=== PATIENT | female | born 1950 | race Caucasian/White ===

== ENCOUNTER → 2017-03-12 13:11 | Outpatient (CLI) | payer MEDICARE, OTHER, SELFPAY ==
--- NOTE | 2017-03-12 13:13 | HPBI_ITS ---
MAMMOGRAPHY - BILATERAL SCREENING REASON FOR EXAM: Female, 66 years old. Routine annual screening examination. PERTINENT HISTORY: Bilateral breast nodules. TECHNIQUE: Digital bilateral breast amado (3D mammographic acquisition) in the CC and MLO projections. 2-D mediolateral oblique (MLO) and craniocaudad (CC) views of both breasts were obtained. CAD: Full Field Digital Mammography with Computer Added Detection was performed. COMPARISON: Comparison is made with prior study dated January 15, 2016 and November 20, 2014. FINDINGS: Breast Composition: There are scattered areas of fibroglandular density. There are no dominant masses or suspicious calcifications. Tissue clip markers are once again seen in both breasts in keeping with prior bilateral stereotactic biopsies. Stable bilateral benign-appearing axillary lymph nodes. No other significant abnormalities are identified. There has been no significant change since the prior study. HPBI/DIAG MAMM W/CAD, BILAT IMPRESSION: Stable bilateral screening mammogram. With the patient's history of bilateral palpable abnormalities, correlation with ultrasound is recommended. ASSESSMENT CATEGORY: BIRADS Category 0: Incomplete. Need additional imaging evaluation. A letter regarding these results will be sent to the patient by the facility within 30 days. Approximately 10% of breast cancers are not detected by mammography. A normal mammogram should not delay biopsy of a clinically suspicious abnormality. [id number] Electronically Signed: Jarret Kennedy MD at 15:41 EST Tel [phone], Service support ,
--- NOTE | 2017-03-12 13:16 | US_ITS ---
STUDY: ULTRASOUND BREAST - RIGHT REASON FOR EXAM: Female, 66 years old. Palpable lump in the right breast. TECHNIQUE: Axial and longitudinal images of the RIGHT breast were performed with a high resolution ultrasound transducer. COMPARISON: Comparison is made with prior mammogram done earlier today. FINDINGS: RIGHT Breast: There is a 3 mm x 3 mm x 4 mm cyst at the 2:00 position breast at 5 cm from nipple. IMPRESSION: 3 mm x 3 mm x 4 mm cyst at the 2:00 breast and 5 cm from the nipple. ASSESSMENT CATEGORY: BIRADS Category 2: Benign. A letter regarding these results will be sent to the patient by the facility within 30 days. Electronically Signed: Jarret Kennedy MD at 15:39 EST Tel [phone], Service support , STUDY: ULTRASOUND BREAST - LEFT REASON FOR EXAM: Female, 66 years old. Palpable lump left breast. TECHNIQUE: Axial and longitudinal images of the LEFT breast were performed with a high resolution ultrasound transducer. COMPARISON: Comparison is made with prior mammogram done earlier today. FINDINGS: LEFT Breast: The upper inner quadrant of the left breast was examined. No nodule is seen. US/Breast Limited Unilateral IMPRESSION: No significant sonographic abnormality is present. ASSESSMENT CATEGORY: BIRADS Category 1: Negative. A letter regarding these results will be sent to the patient by the facility within 30 days. Electronically Signed: Jarret Kennedy MD at 15:39 EST Tel [phone], Service support ,
== END ==
PROVIDERS: Family Provider Family Medicine; PCP Family Medicine; Visit Provider Obstetrics & Gynecology
DX: N64.4 Mastodynia (principal); N63.10 Unspecified lump in the right breast, unspecified quadrant
CPT/HCPCS: 76642; 77062; 77066; G0279

== ENCOUNTER → 2017-03-25 14:33 | Outpatient (CLI) | payer MEDICARE, OTHER, SELFPAY ==
--- NOTE | 2017-03-25 14:35 | US_ITS ---
STUDY: NECK ULTRASOUND REASON FOR EXAM: Female, 66 years old. Swelling TECHNIQUE: Ultrasound evaluation of the left neck was performed with real-time and static villalpando-scale imaging. COMPARISON: None. FINDINGS: RIGHT : The is no focal adenopathy seen. There are no demonstrated solid, cystic or complex lesions. LEFT : There is 0.9 cm lymph node. No cystic lesion, US/Head/Neck Soft Tissue IMPRESSION: Small lymph node in the left side of the neck. No dominant mass or fluid collection. Electronically Signed: Kenneth Hinson MD at 23:54 EST , Service support ,
== END ==
PROVIDERS: Family Provider Family Medicine; PCP Family Medicine; Visit Provider Family Medicine
DX: R59.0 Localized enlarged lymph nodes (principal)
CPT/HCPCS: 76536

== ENCOUNTER → 2017-07-13 11:39 | Outpatient (CLI) | payer MEDICARE, OTHER, SELFPAY ==
[2017-07-13 11:48] LABS: Mucous, Urine 0 SEEN /hpf (<or=2+); Red Blood Cells-Urine 0 SEEN /hpf (0-5)
[2017-07-13 15:44] LABS: Absolute Lymphocyte Count 1.71 X10^3/ul (0.83-4.51); Absolute Neutrophil Count 4.4 X10^3/uL (2.0-7.7); Basophil# 0.03 X10^3/uL; Basophil% 0.4 % (0-1); Color, Urine Yellow (Yellow); Eosinophil# 0.12 X10^3/uL; Eosinophils% 1.7 % (0-5); Glucose, Dipstick Normal (Normal); Hematocrit 45.2 % (37-47); Hemoglobin 14.4 g/dl (12.0-15.0); Ketone-Dipstick Negative (Negative); Leukocyte Esterase-Dipstick 25 /ul (Negative); Lymphocyte # 1.71 X10^3/ul (4.0); Lymphocyte % 24.8 % (19-41); Mean Corp Hgb Conc 31.9 g/gl (32-36); Mean Corpuscular Hgb 28.9 pg (27.0-32.0); Mean Corpuscular Volume 90.6 fL (81-99); Mean Platelet Vol. 9.9 fl (6.2-12.0); Monocyte# 0.65 X10^3/uL; Monocyte% 9.4 % (0-10); Neutrophil # 4.35 X10^3/uL (2.7-7.7); Neutrophil % 63.3 % (47-70); Nitrite-Dipstick Negative (Negative); Occult Blood-Urine Negative /ul (Negative); Platelet Count 222 K/mm3 (150-450); Protein-Dipstick Negative (Negative); RBC Distribution Width CV 14.2 % (11.6-14.6); RBC Distribution Width SD 46.5 fl (35.1-43.9); Red Blood Count 4.99 M/mm3 (4.2-5.4); Specific Gravity, Urine 1.025 (1.002-1.030); Urine Bilirubin Dipstick Negative (Negative); Urine Clarity Clear (Clear); Urine Urobilinogen Normal (Normal); White Blood Count 6.9 K/mm3 (4.4-11.0)
[2017-07-13 15:52] LABS: POSITIVE COUNT NO; POSITIVE DIFFERENTIAL NO; POSITIVE MORPHOLOGY NO
[2017-07-13 15:59] LABS: Squamous Epithelial Cells - UA 5-10 SEEN /hpf (5-10); White Blood Cells 0-5 SEEN /hpf (0-5)
[2017-07-13 16:00] LABS: Bacteria 1+ /hpf (None Seen); Transitional Epithelial - Ur 0-5 SEEN /hpf (0-5)
[2017-07-13 16:26] LABS: Anion Gap 12 (5-15); BUN 19 mg/dL (7-18); BUN/Creat Ratio 24.1 RATIO (10-20); Calcium,Total 8.9 mg/dL (8.5-10.1); Chloride 102 mmol/L (98-107); Creatinine, Serum 0.79 mg/dL (0.55-1.02); EST Glomerular Filtration Rate 77 mL/min (>60); Est Glom Filt Rate - Afr Amer 94 mL/min (>60); Free T3 2.4 pg/mL (2.18-3.98); Glucose 93 mg/dL (74-106); Potassium 4.2 mmol/L (3.5-5.1); Sodium Level 141 mmol/L (136-145); T4 Free Direct 0.98 ng/dL (0.76-1.46); Thyroid Stim Hormone (TSH) 2.05 uIU/mL (0.358-3.74)
[2017-07-15 14:07] LABS: Thyroid Peroxidase AB 25 IU/mL (0-34)
[2017-07-16 12:37] LABS: Thyroglobulin Antibody 79.2 IU/mL (0.0-0.9)
== END ==
PROVIDERS: Family Provider Family Medicine; PCP Family Medicine; Visit Provider Family Medicine
DX: E03.9 Hypothyroidism, unspecified (principal); E78.5 Hyperlipidemia, unspecified; I10 Essential (primary) hypertension; K62.5 Hemorrhage of anus and rectum; E11.9 Type 2 diabetes mellitus without complications; E55.9 Vitamin D deficiency, unspecified; R53.83 Other fatigue; Z79.01 Long term (current) use of anticoagulants
CPT/HCPCS: 36415; 80048; 81001; 84439; 84443; 84481; 85025; 86376; 86800; 87086

== ENCOUNTER → 2017-07-31 08:27 | Outpatient (CLI) | payer MEDICARE, OTHER, SELFPAY ==
[2017-07-31 09:23] LABS: Erythrocyte Sedimentation Rate 6 mm/hr (0-30)
[2017-07-31 09:50] LABS: CPK Total, Creatine Kinase 235 U/L (26-192); CRP 6.15 mg/L (0.0-3.0); Cholesterol 218 mg/dL (200); High Density Lipoprotein 54 mg/dL; Triglycerides 244 mg/dL; Very Low Density Lipoprotein 49 mg/dL (5-40)
== END ==
PROVIDERS: Family Provider Family Medicine; PCP Family Medicine; Visit Provider Family Medicine
DX: B27.90 Infectious mononucleosis, unspecified without complication (principal); M79.1 Myalgia; M25.50 Pain in unspecified joint; E78.5 Hyperlipidemia, unspecified; E11.9 Type 2 diabetes mellitus without complications; R53.1 Weakness; R53.83 Other fatigue
CPT/HCPCS: 36415; 80061; 82550; 85652; 86140; 86663; 86664; 86665

== ENCOUNTER → 2017-08-11 16:14 | Outpatient (CLI) | payer MEDICARE, OTHER, SELFPAY ==
[2017-08-14 07:55] LABS: EBV Acute VCA IgM < 36.0 U/mL (0.0-35.9); EBV Early Antigen IgG 71.8 U/mL (0.0-8.9); EBV Nuclear Antigen IgG 90.1 U/mL (0.0-17.9)
== END ==
PROVIDERS: Family Provider Family Medicine; PCP Family Medicine; Visit Provider Family Medicine
DX: B27.90 Infectious mononucleosis, unspecified without complication (principal); R53.83 Other fatigue; M79.1 Myalgia; R53.1 Weakness; M25.50 Pain in unspecified joint; E78.5 Hyperlipidemia, unspecified; E11.9 Type 2 diabetes mellitus without complications
CPT/HCPCS: 86663; 86664; 86665

== ENCOUNTER → 2017-09-02 14:56 | Outpatient (CLI) | payer MEDICARE, OTHER, SELFPAY ==
[2017-09-02 16:28] LABS: Rheumatoid Factor < 10.0 IU/mL (<15)
[2017-09-12 07:41] LABS: ANTINUCLEAR ANTIBODIES DIRECT Negative (Negative)
[2017-09-13 11:30] LABS: CCP IgG Antibodies 4 units (0-19)
== END ==
PROVIDERS: Visit Provider Family Medicine
DX: M13.0 Polyarthritis, unspecified (principal)
CPT/HCPCS: 36415; 86038; 86200; 86431

== ENCOUNTER → 2017-12-15 06:33 | Outpatient (CLI) | payer MEDICARE, OTHER, SELFPAY ==
--- NOTE | 2017-12-15 06:41 | MRI_ITS ---
STUDY: MRI LEFT HAND REASON FOR EXAM: Left hand pain and joint stiffness, evaluate for inflammatory arthritis, bone erosions, bone edema, synovitis. TECHNIQUE: Standardized fat and water weighted pulse sequences were obtained in all 3 orthogonal planes. COMPARISON: None. FINDINGS: Normal metacarpals and phalanges without bone edema. There is flexor tenosynovitis of the third digit at the level of the distal metacarpal and proximal phalanx (inversion recovery axial images 15-27). Otherwise, unremarkable flexor and extensor tendons. Normal carpometacarpal joints. There is mild subchondral cystic change of the radial aspect of the second metacarpal head (inversion recovery axial image 18). Otherwise, unremarkable metacarpophalangeal joints without marginal osseous erosions or joint effusions. There is mild flexion deformity at the second and third proximal interphalangeal joints (T2 sagittal images 13, 20). Otherwise, unremarkable interphalangeal joints without marginal osseous erosions or joint effusions. There is mild atrophy with mild partial fat replacement of the hypothenar musculature (T1 coronal images 6-8). There is no discrete soft tissue mass or cyst. MRI/Upper Ext/No Jt/ wo IMPRESSION: Flexor tenosynovitis of the third digit. Mild flexion deformity at the second and third proximal interphalangeal joints. Mild atrophy of the hypothenar musculature. No demonstrated bone edema or osseous erosions. Electronically Signed: Lukasz Flower MD at 8:44 EDT Tel , Service support ,
== END ==
PROVIDERS: Family Provider Family Medicine; PCP Family Medicine
DX: M79.642 Pain in left hand (principal)
CPT/HCPCS: 73218

== ENCOUNTER → 2018-01-24 16:27 | Outpatient (CLI) | payer MEDICARE, OTHER, SELFPAY ==
[2018-01-24 18:40] LABS: CPK Total, Creatine Kinase 250 U/L (26-192); T4 Free Direct 0.87 ng/dL (0.76-1.46); Thyroid Stim Hormone (TSH) 2.03 uIU/mL (0.358-3.74)
[2018-01-24 19:09] LABS: T3 Total - Triiodothyronine 1.04 ng/mL (0.6-1.81); Vitamin B12 1313 pg/mL (211-911); Vitamin D,25 Hydroxy 49.2 ng/mL (29.95-100.01)
[2018-01-28 12:41] LABS: EBV Acute VCA IgM < 36.0 U/mL (0.0-35.9); EBV Early Antigen IgG 43.1 U/mL (0.0-8.9); EBV Nuclear Antigen IgG 69.5 U/mL (0.0-17.9)
== END ==
PROVIDERS: PCP Family Medicine; Visit Provider Family Medicine
DX: R30.0 Dysuria (principal); E78.5 Hyperlipidemia, unspecified; E03.9 Hypothyroidism, unspecified; E55.9 Vitamin D deficiency, unspecified; B27.90 Infectious mononucleosis, unspecified without complication; R59.0 Localized enlarged lymph nodes; E53.8 Deficiency of other specified B group vitamins
CPT/HCPCS: 36415; 82306; 82550; 82607; 84439; 84443; 84480; 86663; 86664; 86665; 87086; 87088

== ENCOUNTER → 2018-03-24 17:44 | Outpatient (CLI) | payer MEDICARE, OTHER, SELFPAY | PROVIDERS: Family Provider Family Medicine; PCP Family Medicine; Referring Provider Podiatrist; Visit Provider Podiatrist | DX: L03.032 Cellulitis of left toe (principal) | CPT/HCPCS: 87070; 87075; 87077; 87205 ==

== ENCOUNTER → 2018-05-02 15:02 | Outpatient (CLI) | payer MEDICARE, OTHER, SELFPAY ==
--- NOTE | 2018-05-02 15:05 | BI_ITS ---
MAMMOGRAPHY - BILATERAL SCREENING 3-D ROCIO SYNTHESIS REASON FOR EXAM: Female, 67 years old. Bilateral Screening 3-D tomosynthesis PERTINENT HISTORY: History of cysts. TECHNIQUE: 2-D mammograms and 3-D Rocio synthesis of the breast (s) were performed. CAD was performed. COMPARISON: January 15, 2016, November 20, 2014 FINDINGS: The breast composition is almost entirely fat. Scattered benign calcifications are seen. There are stable lymph nodes in both axillae. Bilateral tissue clip markers are noted from the patient's prior biopsies. No dense spiculated masses or suspicious microcalcifications are identified. No architectural distortion is identified. There is no skin thickening or retraction. There has been no significant change since the prior study. BI/SCREENING MAMM (CAD), BILAT IMPRESSION: No mammographic signs of malignancy. Routine yearly mammograms recommended. ASSESSMENT CATEGORY: BIRADS Category 2: Benign. A letter regarding these results will be sent to the patient by the facility within 30 days. FOLLOW UP RECOMMENDATION: Yearly follow up mammogram recommended. (A) Approximately 10% of breast cancers are not detected by mammography. A normal mammogram should not delay biopsy of a clinically suspicious abnormality. Electronically Signed: Jhon Morrison MD at 13:55 EDT , Service support ,
== END ==
PROVIDERS: Family Provider Family Medicine; PCP Family Medicine; Referring Provider Obstetrics & Gynecology; Visit Provider Obstetrics & Gynecology
DX: Z12.31 Encounter for screening mammogram for malignant neoplasm of breast (principal)
CPT/HCPCS: 77063; 77067

== ENCOUNTER → 2018-08-08 16:52 | Outpatient (CLI) | payer MEDICARE, OTHER, SELFPAY ==
[2018-08-08 17:31] LABS: Hemoglobin 12.8 g/dl (12.0-15.0); Mean Corpuscular Hgb 28.1 pg (27.0-32.0); Mean Corpuscular Volume 87.9 fL (81-99); Mean Platelet Vol. 9.5 fl (6.2-12.0); Platelet Count 243 K/mm3 (150-450); RBC Distribution Width CV 14.3 % (11.6-14.6); RBC Distribution Width SD 45.9 fl (35.1-43.9); Red Blood Count 4.55 M/mm3 (4.2-5.4); Scan Indicated on CBC? Y/N NO; White Blood Count 8.2 K/mm3 (4.4-11.0)
== END ==
PROVIDERS: Family Provider Family Medicine; PCP Family Medicine; Referring Provider Internal Medicine Gastroenterology; Visit Provider Internal Medicine Gastroenterology
DX: K62.5 Hemorrhage of anus and rectum (principal)
CPT/HCPCS: 36415; 85027

== ENCOUNTER → 2018-09-06 16:00 | Outpatient (CLI) | payer MEDICARE, OTHER, SELFPAY ==
--- NOTE | 2018-09-05 12:34 | COLBX_PTH ---
PATIENT: CONCETTA DOOLEY LOC: [facility] U#:[id number] AGE/SX: 74/F ROOM: RE09/06/[address]: Dr. Ryan Joseph MD : 1950 BED: DIS: SPEC #: [id number] RECD: 09/06/18 15:23 STATUS: SHANE EFRAIN #: [id number] SHAKIR: 09/05/18 12:[address]: Ryan Joseph DEPT: SURGICAL PATHOLOGY RECD BY: Aubrey Marte ENTERED: 09/07/18 10:55 SP TYPE: COLON BX OTHR DR: Dr. Morena Marion, [facility] Tissues: Sigmoid colon biopsy Procedures: Surgery Specimen Level IV HEADER OPERATION: Colonoscopy with biopsy PRE-OP DIAGNOSIS: Rectal bleeding TISSUE SUBMITTED: Sigmoid polyp biopsy, rule out adenoma MICROSCOPIC DIAGNOSIS Sigmoid polyp, biopsy: Tubular adenoma. SJ:lilia 09/08/18 MICROSCOPIC DESCRIPTION Slides are reviewed. GROSS DESCRIPTION Received in fixative is one container labeled with the patient's name and designated sigmoid. The specimen consists of two irregular fragments of light troy soft tissue that in aggregate measure 0.4 x 0.3 x 0.1 cm. The specimen is totally submitted in one cassette. / SJ:lilia 09/07/18 TC:1 CPT: 40863
== END ==
PROVIDERS: Family Provider Family Medicine; PCP Family Medicine; Referring Provider Internal Medicine Gastroenterology; Visit Provider Internal Medicine Gastroenterology
DX: K62.5 Hemorrhage of anus and rectum (principal)
CPT/HCPCS: 88305

== ENCOUNTER → 2018-11-17 16:34 | Outpatient (CLI) | payer MEDICARE, OTHER, SELFPAY ==
[2018-11-17 17:15] LABS: Absolute Lymphocyte Count 1.69 X10^3/uL (0.83-4.51); Absolute Neutrophil Count 2.8 X10^3/uL (2.0-7.7); Basophil# 0.06 X10^3/uL; Basophil% 1.1 % (0-1); Eosinophil# 0.18 X10^3/uL; Eosinophils% 3.3 % (0-5); Hemoglobin 12.4 g/dL (12.0-15.0); Lymphocyte # 1.69 X10^3/ul (4.0); Lymphocyte % 30.8 % (19-41); Mean Corp Hgb Conc 30.2 g/dL (32-36); Mean Corpuscular Hgb 24.6 pg (27.0-32.0); Mean Corpuscular Volume 81.2 fL (81-99); Mean Platelet Vol. 9.4 fl (6.2-12.0); Monocyte# 0.72 X10^3/uL; Monocyte% 13.1 % (0-10); NRBC Flagged by Analyzer 0 % (0-5); Neutrophil % 51.2 % (47-70); Platelet Count 238 K/mm3 (150-450); RBC Distribution Width SD 49.3 fl (35.1-43.9); Red Blood Count 5.05 M/mm3 (4.2-5.4); White Blood Count 5.5 K/mm3 (4.4-11.0)
[2018-11-17 17:27] LABS: D-Dimer Quantitative (DVT/PE) 0.38 FEU/ug/m (0.27-0.49)
== END ==
PROVIDERS: Family Provider Family Medicine; PCP Family Medicine; Visit Provider Family Medicine
DX: D64.9 Anemia, unspecified (principal); M79.605 Pain in left leg; R60.9 Edema, unspecified
CPT/HCPCS: 36415; 85025; 85379

== ENCOUNTER → 2018-11-28 15:26 | Outpatient (CLI) | payer MEDICARE, OTHER, SELFPAY ==
--- NOTE | 2018-11-28 15:33 | MRI_ITS ---
STUDY: MRI LEFT ANKLE WITHOUT CONTRAST REASON FOR EXAM: Female, 67 years old. Pain and swelling. TECHNIQUE: Standardized fat and water weighted pulse sequences were obtained in all 3 orthogonal planes. COMPARISON: None. FINDINGS: Normal subcutis adipose space. Normal posterior tibialis tendon. Normal flexor digitorum longus tendon. Normal flexor hallucis longus tendon. Normal peroneus longus and brevis tendons. Normal tibialis anterior tendon. Normal extensor hallucis longus tendon. Normal extensor digitorum longus tendons. There is tendinosis of the Achilles tendon with diffuse tendon thickening, and a partial intratendinous tear, series 8 image 02/07. There is enthesophyte at the insertion of the posterior calcaneus. Thickening of the proximal central cord of the plantar fascia There is a plantar calcaneal spur, but without cancellous marrow edema. Normal intrinsic muscles of the rearfoot. Normal distal tibiofibular syndesmotic ligamentous complex. Normal lateral ligamentous complex. Normal subtalar ligaments and sinus tarsi. Normal deltoid ligamentous complexes. Normal plantar calcaneonavicular (spring) ligament. Mild arthrosis with slight spurring of the tibiotalar articulation. Normal talar dome. Normal subtalar articulations. Normal talonavicular articulation. Normal calcaneocuboid articulation. Normal navicular-cuneiform articulations. MRI/Lower Ext Joint Only (Routine) IMPRESSION: Achilles tendinosis with partial intrasubstance tear. Heel spurs. No fracture. No osteochondral injury of the talar dome. Electronically Signed: Kenneth Hinson MD at 19:00 EDT , Service support ,
--- NOTE | 2018-11-28 15:35 | MRI_ITS ---
STUDY: MRI LUMBAR SPINE WITHOUT CONTRAST REASON FOR EXAM: Female, 67 years old. Pain and stiffness in the legs. TECHNIQUE: Standardized fat and water weighted pulse sequences were obtained in the sagittal and axial planes. COMPARISON: September 12, 2014 FINDINGS: T12-L1: Normal endplates. Normal disc height, hydration and morphology. Normal bilateral facet joints. Normal central canal and bilateral lateral recesses. Normal bilateral intervertebral neural foramina. Normal lumbar lordosis. There is a dextroscoliosis of the lumbar spine. Normal conus medullaris that terminates at the T12 level L1-2: Disc space narrowing with endplate change. Disc bulge and spurring with central right paracentral disc protrusion, series 5 image /. Facet spurring. Mild canal stenosis and foraminal narrowing L2-3: Disc space narrowing on the left with endplate change. Disc bulge and spurring with left paracentral disc protrusion, series 5 image 17/. Facet spurring and ligamentum flavum hypertrophy. Mild canal stenosis. Left foraminal narrowing L3-4: Disc space narrowing on the left with endplate change. Disc bulge and spurring. Facet spurring and ligamentum flavum hypertrophy. Mild canal stenosis. Left foraminal narrowing. L4-5: Disc space narrowing on the right with endplate change. Disc bulge and spurring with right paracentral/foraminal disc protrusion, series 5 image /. Facet spurring and ligamentum flavum hypertrophy. Moderate canal stenosis. Right foraminal narrowing and encroachment. Left foraminal narrowing. L5-S1: Disc space narrowing. Disc bulge with bilateral foraminal disc protrusions, series 5 image /. Facet spurring. No canal stenosis. Bilateral foraminal narrowing and encroachment Normal visualized sacral ala. Normal visualized paraspinous soft tissue structures. MRI/Spine Lumbar (Routine) IMPRESSION: Multilevel degenerative changes, as described above. Electronically Signed: Kenneth Hinson MD at 18:53 EDT , Service support ,
--- NOTE | 2018-11-28 15:35 | MRI_ITS ---
STUDY: MRI CERVICAL SPINE WITHOUT CONTRAST REASON FOR EXAM: Female, 67 years old. Pain and stiffness. TECHNIQUE: Standardized fat and water weighted pulse sequences were obtained in the sagittal and axial planes. COMPARISON: September 12, 2014 FINDINGS: Normal foramen magnum and brainstem-cervical cord junction. Normal craniovertebral junction. Normal anterior atlantoaxial articulation. Normal odontoid process. Normal cervical lordosis. Normal vertebral bodies and posterior osseous elements. There is no acute fracture. C2-3: Normal endplates. Normal disc height, signal and morphology. Normal central canal and intervertebral neural foramina. C3-4: Normal endplates. Normal disc height, signal and morphology. Normal central canal and intervertebral neural foramina. C4-5: Disc bulge and spurring to the right narrowing the right lateral recesses. Facet and uncovertebral spurring with right foraminal narrowing. No canal stenosis. C5-6: Disc bulge with spurring flattening the thecal sac. Facet and uncovertebral spurring with foraminal narrowing. No canal stenosis. C6-7: Normal endplates. Normal disc height, signal and morphology. Uncovertebral spurring with right foraminal narrowing. C7-T1: Normal endplates. Normal disc height, signal and morphology. Normal central canal and intervertebral neural foramina. Normal cervical cord. Normal visualized soft tissue structures. MRI/Spine Cervical (Routine) IMPRESSION: Multilevel degenerative changes, as described above. Electronically Signed: Kenneth Hinson MD at 18:44 EDT , Service support ,
--- NOTE | 2018-11-28 16:22 | MRI_ITS ---
STUDY: MRI BRAIN WITHOUT CONTRAST REASON FOR EXAM: Female, 67 years old. Muscle weakness. Pain and stiffness in legs. TECHNIQUE: Standardized multiplanar fat and water weighted pulse sequences were obtained. COMPARISON: September 12, 2014 FINDINGS: Normal size of the ventricles and extra-axial spaces for the patient's age. Normal white matter tracts of the supratentorial brain. There is no evidence for recent intracranial ischemia or other cause of cytotoxic edema on diffusion weighted imaging (DWI). Normal T2* images of the brain without demonstrated susceptibility artifact. There is no demonstrated hemosiderin stain. Normal bilateral basal ganglia. Normal thalami. There is no extra-axial fluid accumulation. Normal flow voids within the major intracranial circulation suggesting patency by spin echo criteria. There is enlargement of the sella turcica with increased CSF within the sella and flattening of the pituitary gland consistent with an empty sellar syndrome. Normal infundibular stalk, hypothalamus, and optic chiasm. Normal tectal plate and pineal gland. Normal midbrain, hebert and medulla. Stable signal alteration and small prior insult of the right cerebellum . Normal basal cisterns. There is mild chronic otomastoiditis of the left temporal bone. Normal bilateral internal auditory canals. No demonstrated orbital abnormality, within the constraints of a routine brain study. Normal visualized paranasal sinuses. Normal calvarium and skull base. Normal visualized soft tissue structures. Normal visualized upper cervical spine. MRI/Brain without Contrast IMPRESSION: No acute intracranial abnormality. Stable abnormality with prior insult of the right cerebellum. Electronically Signed: Kenneth Hinson MD at 18:00 EDT , Service support ,
== END ==
PROVIDERS: Family Provider Family Medicine; PCP Family Medicine
DX: G37.9 Demyelinating disease of central nervous system, unspecified (principal); R29.898 Other symptoms and signs involving the musculoskeletal system
CPT/HCPCS: 70551; 72141; 72148; 73721

== ENCOUNTER → 2018-12-03 09:14 | Outpatient (CLI) | payer MEDICARE, OTHER, SELFPAY ==
[2018-12-03 11:30] LABS: Cholesterol 217 mg/dL (200); High Density Lipoprotein 62 mg/dL; T4 Free Direct 0.76 ng/dL (0.76-1.46); Thyroid Stim Hormone (TSH) 5.04 uIU/mL (0.358-3.74); Triglycerides 270 mg/dL; Very Low Density Lipoprotein 54 mg/dL (5-40)
== END ==
PROVIDERS: Family Provider Family Medicine; PCP Family Medicine; Referring Provider Internal Medicine Endocrinology, Diabetes & Metabolism; Visit Provider Internal Medicine Endocrinology, Diabetes & Metabolism
DX: E78.5 Hyperlipidemia, unspecified (principal); E03.9 Hypothyroidism, unspecified
CPT/HCPCS: 36415; 80061; 84439; 84443

== ENCOUNTER → 2019-05-05 15:00 | Outpatient (CLI) | payer MEDICARE, OTHER, SELFPAY ==
[2019-02-15 09:28] VITALS: BMI 35.8
--- NOTE | 2019-05-05 15:37 | BI_ITS ---
MAMMOGRAPHY - BILATERAL SCREENING REASON FOR EXAM: Female, 68 years old. Routine annual screening examination. PERTINENT HISTORY: Mother with breast cancer. Prior bilateral stereotactic breast biopsies. TECHNIQUE: Digital bilateral breast rocio (3D mammographic acquisition) in the CC and MLO projections. 2-D mediolateral oblique (MLO) and craniocaudad (CC) views of both breasts were obtained. CAD: Full Field Digital Mammography with Computer Added Detection was performed. COMPARISON: Comparison is made with prior examination dated May 02, 2018 and March 12, 2017. FINDINGS: Breast Composition: There are scattered areas of fibroglandular density. There are no dominant masses or suspicious calcifications. A tissue clip marker is seen in the retroareolar region of the right breast. A tissue clip marker is also seen in the retroareolar region of the left breast. Stable benign-appearing bilateral axillary lymph nodes. No other significant abnormalities are identified. There has been no significant change since the prior study. BI/SCREEN MAMM (CAD) W/ROCIO BILAT IMPRESSION: Stable bilateral screening mammogram. Yearly follow-up mammogram recommended. (A) ASSESSMENT CATEGORY: BIRADS Category 2: Benign. A letter regarding these results will be sent to the patient by the facility within 30 days. Approximately 10% of breast cancers are not detected by mammography. A normal mammogram should not delay biopsy of a clinically suspicious abnormality. [id number] Electronically Signed: Jarret Kennedy, at 8:39 EDT , Service support ,
== END ==
PROVIDERS: PCP Family Medicine; Referring Provider Obstetrics & Gynecology; Visit Provider Obstetrics & Gynecology
DX: Z12.31 Encounter for screening mammogram for malignant neoplasm of breast (principal)
CPT/HCPCS: 77063; 77067

== ENCOUNTER → 2019-11-29 11:58 | Outpatient (CLI) | payer MEDICARE, OTHER, SELFPAY ==
[2019-02-15 09:28] VITALS: BMI 35.8
[2019-11-29 15:13] LABS: Hematocrit 41.2 % (37-47); Hemoglobin 12.5 g/dL (12.0-15.0); Mean Corp Hgb Conc 30.3 g/dL (32-36); Mean Corpuscular Hgb 26.7 pg (27.0-32.0); Mean Corpuscular Volume 87.8 fL (81-99); Mean Platelet Vol. 10.2 fl (6.2-12.0); Platelet Count 269 K/mm3 (150-450); RBC Distribution Width CV 15.9 % (11.6-14.6); RBC Distribution Width SD 50.8 fl (35.1-43.9); Red Blood Count 4.69 M/mm3 (4.2-5.4); White Blood Count 6.5 K/mm3 (4.4-11.0)
[2019-12-01 17:52] LABS: Endomysial Antibody IgA Negative (Negative); Immunoglobulin A 125 mg/dL (87-352); t-Transglutaminase IgA <2 U/mL (0-3)
== END ==
PROVIDERS: PCP Family Medicine; Referring Provider Internal Medicine Gastroenterology; Visit Provider Internal Medicine Gastroenterology
DX: R10.9 Unspecified abdominal pain (principal); K62.5 Hemorrhage of anus and rectum
CPT/HCPCS: 36415; 82784; 83516; 85027; 86255

== ENCOUNTER → 2020-03-21 16:27 | Outpatient (CLI) | payer MEDICARE, OTHER, SELFPAY ==
[2019-02-15 09:28] VITALS: BMI 35.8
[2020-03-21 17:41] LABS: Erythrocyte Sedimentation Rate 16 mm/hr (0-30)
[2020-03-21 17:44] LABS: D-Dimer Quantitative (DVT/PE) 0.31 FEU/ug/m (0.27-0.49)
[2020-03-21 17:45] LABS: Absolute Lymphocyte Count 1.25 X10^3/uL (0.83-4.51); Absolute Neutrophil Count 4.8 X10^3/uL (2.0-7.7); Basophil# 0.08 X10^3/uL; Basophil% 1.1 % (0-1); Eosinophil# 0.28 X10^3/uL; Eosinophils% 3.8 % (0-5); Hematocrit 28.8 % (37-47); Hemoglobin 8.6 g/dL (12.0-15.0); Lymphocyte # 1.25 X10^3/ul (4.0); Lymphocyte % 16.8 % (19-41); Mean Corp Hgb Conc 29.9 g/dL (32-36); Mean Corpuscular Hgb 23.4 pg (27.0-32.0); Mean Corpuscular Volume 78.5 fL (81-99); Mean Platelet Vol. 9.4 fl (6.2-12.0); Monocyte# 0.92 X10^3/uL; Monocyte% 12.4 % (0-10); NRBC Flagged by Analyzer 0 % (0-5); Neutrophil # 4.78 X10^3/uL (2.7-7.7); Neutrophil % 64.3 % (47-70); Platelet Count 289 K/mm3 (150-450); RBC Distribution Width CV 16.9 % (11.6-14.6); RBC Distribution Width SD 48.3 fl (35.1-43.9); Red Blood Count 3.67 M/mm3 (4.2-5.4); White Blood Count 7.4 K/mm3 (4.4-11.0)
[2020-03-21 17:53] LABS: Hemoglobin A1c 6.9 % (3.8-5.6)
[2020-03-21 17:59] LABS: AST(SGOT) 16 U/L (15-37); Alanine Aminotransfer ALT/SGPT 25 U/L (13-56); Albumin, Serum 3.3 g/dL (3.2-5.0); Alkaline Phosphatase 116 U/L (45-117); Anion Gap 4 (5-15); BUN 13 mg/dL (7-18); BUN/Creat Ratio 14.2 RATIO (10-20); CRP 6.96 mg/L (0.0-3.0); Calcium,Total 8.6 mg/dL (8.5-10.1); Chloride 105 mmol/L (98-107); Creatinine, Serum 0.91 mg/dL (0.55-1.02); EST Glomerular Filtration Rate 65 mL/min (>60); Est Glom Filt Rate - Afr Amer 78 mL/min (>60); Ferritin 17 ng/mL (8-252); Free T3 1.5 pg/mL (2.18-3.98); Globulin 3.2 g/dL (2.2-4.2); Glucose 160 mg/dL (74-106); Iron 21 ug/dL (50-170); LDH 198 U/L (84-246); Potassium 3.8 mmol/L (3.5-5.1); Protein, Total 6.5 g/dL (6.4-8.2); Sodium Level 140 mmol/L (136-145); T4 Free Direct 1.04 ng/dL (0.76-1.46); Thyroid Stim Hormone (TSH) 1.84 uIU/mL (0.358-3.74)
[2020-03-23 08:57] LABS: Cancer Antigen 125 13.8 U/mL (0.0-38.1); Carcinoembryonic Antigen 1.6 ng/mL (0.0-4.7)
== END ==
PROVIDERS: PCP Family Medicine; Visit Provider Family Medicine
DX: R97.1 Elevated cancer antigen 125 [CA 125] (principal); Z12.73 Encounter for screening for malignant neoplasm of ovary; E11.9 Type 2 diabetes mellitus without complications; N93.9 Abnormal uterine and vaginal bleeding, unspecified; I10 Essential (primary) hypertension; E06.3 Autoimmune thyroiditis; R53.83 Other fatigue; M54.17 Radiculopathy, lumbosacral region; K62.5 Hemorrhage of anus and rectum; D64.9 Anemia, unspecified; M25.50 Pain in unspecified joint; Z91.89 Other specified personal risk factors, not elsewhere classified; Z85.038 Personal history of other malignant neoplasm of large intestine
CPT/HCPCS: 36415; 80053; 82378; 82728; 83036; 83540; 83615; 84439; 84443; 84481; 85025; 85379; 85652; 86140; 86304

== ENCOUNTER → 2020-03-25 07:48 | Outpatient (CLI) | payer MEDICARE, OTHER, SELFPAY ==
[2019-02-15 09:28] VITALS: BMI 35.8
[2020-03-25] VITALS (8 sets, daily range): BP systolic 117–157; BP diastolic 63–89; PULSE 82–107; RESP 12–16; TEMP 35.7–37.4; O2SAT 94–98; BMI 38.7
[2020-03-25] MEDS: Acetaminophen 500 MG Tablet 1000 MG PO (09:01)
[2020-03-25] MEDS: 0.9% NaCl IVPB Med Flush (250 mL) 15 ML IV (13:19)
== END ==
PROVIDERS: PCP Family Medicine; Referring Provider Family Medicine; Visit Provider Family Medicine
DX: D64.9 Anemia, unspecified (principal); K90.9 Intestinal malabsorption, unspecified
CPT/HCPCS: 96365; 36430; 86850; 86900; 86901; 86920; 86922; J1756; J7040; J7050; P9016; A4216

== ENCOUNTER → 2020-03-26 10:57 | Outpatient (CLI) | payer MEDICARE, OTHER, SELFPAY ==
[2019-02-15 09:28] VITALS: BMI 35.8
[2020-03-25 08:00] VITALS: BMI 38.7
--- NOTE | 2020-03-26 10:59 | US_ITS ---
STUDY: ULTRASOUND OF THE FEMALE PELVIS - COMPLETE REASON FOR EXAM: Female, 69 years old. VAG BLEEDING LMP: Postmenopausal. TECHNIQUE: Transabdominal and Transvaginal TECHNICAL QUALITY: Adequate. COMPARISON: Comparison is made with prior examination dated 08/12/2011. FINDINGS: The uterus is anteverted and is in a midline position. The uterus measures 5.9 cm x 4.1 cm x 3 cm. Normal uterine cervix. The endometrium measures 2 mm in thickness, and is hyperechoic. There is no demonstrated endometrial mass. There is no demonstrated myometrial mass. I.U.D. - The patient does not have an I.U.D. The right ovary is non-visualized. The left ovary is non-visualized. There is no fluid in the cul-de-sac. The pre void volume of the bladder was 456 ml. US/Transvaginal Non- IMPRESSION: Normal female pelvis. Electronically Signed: Jarret Kennedy MD at 14:14 EST , Service support ,
--- NOTE | 2020-03-26 11:00 | US_ITS ---
STUDY: ULTRASOUND OF THE FEMALE PELVIS - COMPLETE REASON FOR EXAM: Female, 69 years old. VAG BLEEDING LMP: Postmenopausal. TECHNIQUE: Transabdominal and Transvaginal TECHNICAL QUALITY: Adequate. COMPARISON: Comparison is made with prior examination dated 08/12/2011. FINDINGS: The uterus is anteverted and is in a midline position. The uterus measures 5.9 cm x 4.1 cm x 3 cm. Normal uterine cervix. The endometrium measures 2 mm in thickness, and is hyperechoic. There is no demonstrated endometrial mass. There is no demonstrated myometrial mass. I.U.D. - The patient does not have an I.U.D. The right ovary is non-visualized. The left ovary is non-visualized. There is no fluid in the cul-de-sac. The pre void volume of the bladder was 456 ml. US/Pelvic (Non ) IMPRESSION: Normal female pelvis. Electronically Signed: Jarret Kennedy MD at 14:14 EST , Service support ,
== END ==
PROVIDERS: PCP Family Medicine; Referring Provider Family Medicine; Visit Provider Family Medicine
DX: N95.0 Postmenopausal bleeding (principal)
CPT/HCPCS: 76830; 76856

== ENCOUNTER 2020-04-08 13:55 | Outpatient (CLI) | payer MEDICARE, OTHER, SELFPAY ==
[2019-02-15 09:28] VITALS: BMI 35.8
[2020-03-25 08:00] VITALS: BMI 38.7
[2020-04-08 14:00] VITALS: BP 155/71; PULSE 92; RESP 16; TEMP 36.2; O2SAT 99; BMI 38.7
[2020-04-08] MEDS: 0.9% NaCl Peripheral Flush Adult/Peds IV (14:10)
[2020-04-08] MEDS: 0.9% NaCl IVPB Med Flush (250 mL) 15 ML IV (14:24)
== END 2020-04-08 16:00 ==
LOC: MEDOUTP 13:55
PROVIDERS: PCP Family Medicine; Referring Provider Family Medicine; Visit Provider Family Medicine
DX: D50.9 Iron deficiency anemia, unspecified (principal); K90.9 Intestinal malabsorption, unspecified
CPT/HCPCS: 96365; J1756; J7050; A4216

== ENCOUNTER → 2020-04-15 13:56 | Outpatient (CLI) | payer MEDICARE, OTHER, SELFPAY ==
[2020-04-08 14:00] VITALS: BMI 38.7
--- NOTE | 2020-04-15 13:58 | CT_ITS ---
STUDY: CT ABDOMEN AND PELVIS WITH CONTRAST REASON FOR EXAM: Female, 69 years old. F/U ABN LUMBAR SPINE MRI 5CM MASS UPPER PELVIS -- ASSOCIATED WITH THE SIGMOIDS COLON RADIATION DOSAGE (If Supplied By Facility): CTDIvol = ( 18.62 ) mGy, DLP = ( 1223.79 ) mGycm TECHNIQUE: Transaxial images were obtained from the dome of the diaphragm to the symphysis pubis with oral contrast. Oral and amp;amp; IV Readi-CAT and amp;amp; 100mL Isovue-300 was administered. Sagittal and coronal images were reconstructed. Individualized dose optimization techniques were used for this CT. COMPARISON: None. FINDINGS: Mild degree of increased markings at the lung bases suggestive of mild linear scarring versus linear atelectasis. Coronary artery calcification. There is decreased attenuation of the liver consistent with steatosis is a 2.3 cm x 1.7 cm predominantly cystic nodule in the anterior lateral aspect of the right lobe of the liver. This may represent an hemangioma. Correlation with ultrasound of the right upper quadrant is recommended for further evaluation.. Normal gallbladder and extrahepatic biliary system. Normal spleen. Normal pancreas. Normal bilateral adrenal glands. Normal right kidney. 8 mm cyst in the lower pole of the left kidney. Normal visualized stomach. Normal small intestine. Normal colon. The appendix is visualized and appears normal. There is scattered atherosclerotic calcification of the abdominal aorta, without a demonstrated aneurysm. Normal inferior vena cava. There is borderline retroperitoneal lymphadenopathy with enlarged nodes no greater than 10mm in the short axis diameter. Normal urinary bladder. Normal abdominal wall. There are diffuse degenerative changes of the visualized lumbar spine. CT/Abdomen/Pelvis WITH Contrast IMPRESSION: Diffuse fatty infiltration of the liver. Findings suggestive of a 2.3 cm x 1.7 cm hypodense nodule in the right lobe of the liver. Conus with ultrasound of the right upper quadrant is recommended to assess for possible hemangioma. Electronically Signed: Jarret Kennedy MD at 16:40 EST , Service support ,
== END ==
PROVIDERS: PCP Family Medicine; Referring Provider Family Medicine; Visit Provider Family Medicine
DX: R19.00 Intra-abdominal and pelvic swelling, mass and lump, unspecified site (principal); R93.89 Abnormal findings on diagnostic imaging of other specified body structures
CPT/HCPCS: 74177; Q9967

== ENCOUNTER → 2020-04-22 13:49 | Outpatient (CLI) | payer MEDICARE, OTHER, SELFPAY ==
[2020-03-25 08:00] VITALS: BMI 38.7
[2020-04-22 10:03] LABS: Absolute Lymphocyte Count 1.23 X10^3/uL (0.83-4.51); Absolute Neutrophil Count 3.5 X10^3/uL (2.0-7.7); Basophil# 0.07 X10^3/uL; Basophil% 1.2 % (0-1); Eosinophil# 0.22 X10^3/uL; Eosinophils% 3.8 % (0-5); Hematocrit 33.9 % (37-47); Hemoglobin 9.9 g/dL (12.0-15.0); Lymphocyte # 1.23 X10^3/ul (4.0); Lymphocyte % 21.2 % (19-41); Mean Corp Hgb Conc 29.2 g/dL (32-36); Mean Corpuscular Hgb 22.9 pg (27.0-32.0); Mean Corpuscular Volume 78.3 fL (81-99); Monocyte# 0.73 X10^3/uL; Monocyte% 12.6 % (0-10); NRBC Flagged by Analyzer 0 % (0-5); Neutrophil % 60.3 % (47-70); Platelet Count 285 K/mm3 (150-450); RBC Distribution Width CV 19.7 % (11.6-14.6); Red Blood Count 4.33 M/mm3 (4.2-5.4); White Blood Count 5.8 K/mm3 (4.4-11.0)
[2020-04-22 11:16] VITALS: BMI 38.5
[2020-04-22 13:54] VITALS: BP 154/72; PULSE 98; RESP 16; TEMP 35.8; O2SAT 96; BMI 38.0
[2020-04-22] MEDS: 0.9% NaCl IVPB Med Flush (250 mL) 15 ML IV (14:11)
[2020-04-22] MEDS: 0.9% NaCl Peripheral Flush Adult/Peds IV (14:11)
[2020-04-22 14:58] VITALS: BP 132/56; PULSE 91; RESP 16; TEMP 35.9
== END ==
PROVIDERS: PCP Family Medicine; Referring Provider Family Medicine; Visit Provider Family Medicine
DX: D50.9 Iron deficiency anemia, unspecified (principal); K90.9 Intestinal malabsorption, unspecified; K55.21 Angiodysplasia of colon with hemorrhage; K57.30 Diverticulosis of large intestine without perforation or abscess without bleeding; K64.2 Third degree hemorrhoids; K64.4 Residual hemorrhoidal skin tags; Z20.822 Contact with and (suspected) exposure to COVID-19; E11.9 Type 2 diabetes mellitus without complications; E07.9 Disorder of thyroid, unspecified; L40.50 Arthropathic psoriasis, unspecified; G47.30 Sleep apnea, unspecified; E66.01 Morbid (severe) obesity due to excess calories; Z68.38 Body mass index [BMI] 38.0-38.9, adult; Z79.01 Long term (current) use of anticoagulants; Z79.899 Other long term (current) drug therapy; Z86.718 Personal history of other venous thrombosis and embolism; Z87.11 Personal history of peptic ulcer disease; Z86.010 Personal history of colon polyps; Z86.73 Personal history of transient ischemic attack (TIA), and cerebral infarction without residual deficits
CPT/HCPCS: 45378; 96365; 36415; 85025; 87426; C9803; J1756; J7050; A4216

== ENCOUNTER 2020-04-24 10:55 | Day surgery (SDC) | payer MEDICARE, OTHER, SELFPAY ==
[2020-04-22 11:16] VITALS: BMI 38.5
[2020-04-22 13:54] VITALS: BMI 38.0
[2020-04-24 11:27] VITALS: BP 134/60; PULSE 85; RESP 16; TEMP 36.1; O2SAT 98; BMI 38.8
--- NOTE | 2020-04-24 11:35 | HP.PCM_ITS ---
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 Is patient in pain?: No Allergies cefdinir Allergy (Verified 04/22/20 11:17) Rash ceftriaxone sodium [From Rocephin] Allergy (Verified 04/22/20 11:17) Rash ciprofloxacin [From Cipro] Allergy (Verified 04/22/20 11:17) Rash ciprofloxacin HCl [From Cipro] Allergy (Verified 04/22/20 11:17) Rash levofloxacin [From Levaquin] Allergy (Verified 04/22/20 11:17) Rash Medications Magnesium 400 mg PO DAILY 04/02/14 [History Confirmed 04/22/20] Calcium Carb/Vitamin D [Caltrate-600 With Vit D Tab] 1 tab PO DAILY@0800 06/07/14 [History Confirmed 04/22/20] Apixaban [Eliquis] 5 mg PO BID #60 tab 02/13/15 [Rx Confirmed 04/22/20] C,E,Zinc,Copper 11/Warxy2p/Lut [50+ Adult Eye Health Softgel] 1 ea PO DAILY 05/24/15 [History Confirmed 04/22/20] traMADol [Ultram] 100 mg PO DAILY 05/24/15 [History Confirmed 04/22/20] hydroxychloroquine 200 mg tablet 200 mg PO BID 04/22/20 [History Confirmed 04/22/20] levothyroxine 100 mcg tablet 100 mcg PO DAILY tab 04/22/20 [History Confirmed 04/22/20] Is last menstrual period known: No Post menopausal: Yes Patient : No PFSH Medical History (Updated 04/22/20 @ 11:[address] Rashid Gonzalez MD) Rectal bleeding (Acute) Back pain (Acute) Diabetes (Acute) Fatigue (Acute) History of arthritis (Acute) Interstitial lung disease (Acute) Macular degeneration (Acute) Neck pain (Acute) Psoriatic arthritis (Acute) SOB (shortness of breath) (Acute) Thyroid disease (Acute) Hemorrhoid (Resolved) History of CVA (cerebrovascular accident) (Resolved) History of DVT (deep vein thrombosis) (Resolved) History of colon polyps (Resolved) History of pulmonary embolism (Resolved) Surgical History (Updated 04/22/20 @ 11:16 by Jasmin Yusuf) History of cholecystectomy (Acute) History of hemorrhoidectomy (Acute) Total knee replacement status (Acute) History of colonoscopy (Resolved ~2019) History of inferior vena caval filter placement (Resolved) History of laparoscopic appendectomy (Resolved) History of varicose vein ligation (Resolved) history of omentectomy (Resolved) Family History Other Hypertension blood clots Social History (Updated 04/22/20 @ 11:[address] Rashid Gonzalez MD) Smoking Status: Never smoker alcohol intake: current alcohol intake frequency: holidays/special occasions only HPI HPI HPI: CONCETTA DOOLEY, is a 69 F who presents to the office today for surgical consultation regarding profuse rectal bleeding and anemia and requirement for 2 units of blood transfusion and ongoing IV iron infusion. Patient is referred by her primary care physician Dr. Morena Marion written compromise surgical consult recommendations will be returned to her. The patient apparently has had rectal bleeding now for at least a couple years. She is on chronic anticoagulation apixaban 5 mg twice daily because of history of DVT and pulmonary embolus. She has previously had retrievable vena cava filters prior. She does not have one currently. Apparently she was seen by Dr. Ryan Joseph and had a colonoscopy done for her rectal bleeding September 05, 2018. A tubular adenoma was removed from the sigmoid. She then was referred to Dr. Cordero who by report did a PPH stapled hemorrhoidopexy. The patient continued to have rectal bleeding. Apparently she saw both Dr. Cordero and Dr. Joseph in follow-up. No etiology to rectal bleeding was identified and no further investigations other than the suggested that the hemorrhoidectomy gone well. She then spent the last months in [facility] assisting her son. About a month ago she continued to feel much more poorly. Arms and legs were weak. She was noted to be increasingly anemic. 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 She then saw her neurologist. MRI of the back was obtained which suggested a possible sigmoid mass. Pelvic ultrasound was obtained which did not correlate. She then had a CT scan locally which did not discuss pelvic mass. She claims that when she bleeds she can have 1/4 cup of blood just dripping into the commode. As of today April 22, 2020 her white count is 5.8 with a hemoglobin 9.9 hematocrit 33.9 platelet count 285,000. She is to receive her third dosing of IV iron today. On my review of her CT there is a suggestion me of anal rectal fullness just distal to the staple line. HPI HPI HPI: CONCETTA DOOLEY, is a 69 F who presents to the office today for ROS General General: Yes weight change, fatigue and weakness; no appetite, colon cancer or breast cancer HEENT HEENT: No difficulty swallowing, eye injury, eye surgery, swollen glands or hoarseness Endo Endocrine: Yes thyroid disease and diabetes mellitus; no thyroid cancer, Hair loss, heat intolerance or cold intolerance Musc Musculoskeletal: Yes back problems and arthritis; no rheumatoid arthritis, gout or joint pain Cardio Cardiovascular: No murmur, pacemaker, heart disease, atrial fibrillation, high blood pressure, heart attack, heart stent, palpitations, shortness of breat with exertion or chest pain Psych Psychiatric: No depression, anxiety or hearing voices Resp Respiratory: Yes shortness of breath, Yes sleep apnea, No cough, No COPD, No asthma, No emphysema, No wheezing Gastro Gastrointestinal: Yes abdominal pain, No nausea or vomiting, No diarrhea, No constipation, Yes blood in stool, No acid reflux, Yes hemorrhoids, No ulcers, No gallbladder problem, No black,tarry stools Demian Hematologic: Yes blood thinners, No blood disorders, No bleeding, Yes anemia, Yes blood clots Neuro Neurologic: Yes weakness Exam Const General: cooperative, comfortable, no acute distress Nutritional Appearance: obese morbidly obese [facility] Head: normal to inspection Eyes General: appearance normal, both eyes and all related structures Resp Effort & Inspection: normal respiratory effort Auscultation: clear to auscultation bilaterally Cardio Palpation: normal PMI Rate: regular rate Rhythm: regular rhythm Heart Sounds: no murmurs GI Palpation: soft Auscultation: normal bowel sounds Other: Notably overweight, no mass, no rebound, no guarding Musc Cervical Spine: normal cervical lordosis Neuro General: alert, awake Cognition: normal cognition Extrem General: no calf tenderness Psych Affect: normal affect Assessment & Plan Problems 1. Rectal bleeding K62.5 Plan 69-year-old female with rectal bleeding the point of anemia requiring 2 unit of blood transfusion as well as IV iron supplementation. She has a history of pulmonary embolization. She is on chronic anticoagulation and for surgical procedures in the past has had a retrievable vena cava filter placed. Based upon her presentation I suspect ongoing hemorrhoidal bleeding. I propose for the patient a colonoscopy with possible biopsy or polypectomy as indicated. She is aware of the technique, benefit, risk, alternatives. Unfortunately we are not able to stop her anticoagulation. I will have her hold it just the evening before. At this moment I am suspicious that she might need to have a formal surgical hemorrhoidectomy. She did have a sigmoid polyp but that was a tubular adenoma. She has had an opportunity to ask and have questions answered. We will schedule and expedite her endoscopy this week. I appreciate the opportunity of assisting with her surgical care. Copy: Dr. Morena Gonzalez M.D., F.A.C.S. I have re-examined the patient. There are no clinical changes since date of exam. Orders Orders: Colonoscopy Today K62.5 Coding Level of Care Code 38968 Diagnoses Rectal bleeding K62.5 Procedure Criteria Procedure Type: Elective COVID Risk Discussion: The surgeon/proceduralist and patient have discussed in detail the risk of exposure to and/or potential harm posed by the COVID-19 virus with having a surgery/procedure at this time versus the risk of delaying the surgery/procedure. It is not possible to know either the risk of delaying the surgery or procedure or chance of getting an infection with perfect accuracy, but a joint decision was made between the patient and the surgeon/proceduralist to proceed at this time with the scheduled surgery/procedure as indicated on the consent form.
[2020-04-24 12:39] VITALS: BP 107/43; BP 134/60; PULSE 82; RESP 16; TEMP 36.4; O2SAT 100
--- NOTE | 2020-04-24 12:42 | OP.CCLET_ITS ---
04/24/2020 Morena Marion [address] [place] [address] Re : Colonoscopy procedure for Vicky Belen Dear Dr. Marion This procedure was performed on Friday, April 24, 2020. My impressions and recommendations are as follows: Impressions : - Non-thrombosed external hemorrhoids, non-thrombosed internal hemorrhoids and internal hemorrhoids that prolapse with straining, but require manual replacement into the anal canal (Grade III) found on digital rectal exam. - Multiple recently bleeding colonic angiodysplastic lesions. Treated with a heater probe. - Diverticulosis in the sigmoid colon. - No specimens collected. Recommendations : - Discharge patient to home. - Resume previous diet. - Continue present medications. - Repeat colonoscopy in 10 years for screening purposes. - Return to my office in 5 days. Suspect possible hemorrhoidal bleeding although cecal angiodysplasias were treated. My findings are described in the full procedure note, which is enclosed. If I can be of further assistance, please feel free to contact me at Doctor phone number(s): Work: . Sincerely, Rashid Gonzalez MD 04/24/2020 12:42:00 PM This report has been signed electronically.
--- NOTE | 2020-04-24 12:42 | OP.COLON_ITS ---
Patient Name: Vicky Glover Procedure Date: 04/24/2020 11:36 AM Date of : 1950 Age: 69 Procedure: Colonoscopy Indications: Rectal bleeding Providers: Rashid Gonzalez MD Referring MD: Morena Marion Medicines: See the Anesthesia note for documentation of the administered medications Patient Profile: Last Colonoscopy: 2018. Complications: No immediate complications. Procedure: Pre-Anesthesia Assessment: - Prior to the procedure, a History and Physical was performed, and patient medications and allergies were reviewed. The patient's tolerance of previous anesthesia was also reviewed. The risks and benefits of the procedure and the sedation options and risks were discussed with the patient. All questions were answered, and informed consent was obtained. Prior Anticoagulants: The patient has taken Eliquis (apixaban), last dose was day of procedure. ASA Grade Assessment: III - A patient with severe systemic disease. After reviewing the risks and benefits, the patient was deemed in satisfactory condition to undergo the procedure. After I obtained informed consent, the scope was passed under direct vision. Throughout the procedure, the patient's blood pressure, pulse, and oxygen saturations were monitored continuously. The colonoscope was introduced through the anus and advanced to the cecum, identified by appendiceal orifice and ileocecal valve. The colonoscopy was performed without difficulty. The patient tolerated the procedure well. The quality of the bowel preparation was good. The ileocecal valve and the appendiceal orifice were photographed. Scope In: 12:00:23 PM Scope Withdrawal Time 0 hours 27 minutes 9 seconds Scope Out: 12:33:42 PM Total Procedure Duration Time 0 hours 33 minutes 19 seconds Findings: The digital rectal exam findings include non-thrombosed external hemorrhoids, non-thrombosed internal hemorrhoids and internal hemorrhoids that prolapse with straining, but require manual replacement into the anal canal (Grade III). Multiple small patchy angiodysplastic lesions with stigmata of recent bleeding were found in the cecum. Coagulation for hemostasis using heater probe was successful. Scattered diverticula were found in the sigmoid colon. Impression: - Non-thrombosed external hemorrhoids, non-thrombosed internal hemorrhoids and internal hemorrhoids that prolapse with straining, but require manual replacement into the anal canal (Grade III) found on digital rectal exam. - Multiple recently bleeding colonic angiodysplastic lesions. Treated with a heater probe. - Diverticulosis in the sigmoid colon. - No specimens collected. Recommendation: - Discharge patient to home. - Resume previous diet. - Continue present medications. - Repeat colonoscopy in 10 years for screening purposes. - Return to my office in 5 days. Suspect possible hemorrhoidal bleeding although cecal angiodysplasias were treated. Procedure Code(s): --- Professional --- 73132, Colonoscopy, flexible; with control of bleeding, any method Diagnosis Code(s): --- Professional --- K64.2, Third degree hemorrhoids K64.4, Residual hemorrhoidal skin tags K55.21, Angiodysplasia of colon with hemorrhage K62.5, Hemorrhage of anus and rectum K57.30, Diverticulosis of large intestine without perforation or abscess without bleeding CPT copyright 2017 [employer]. All rights reserved. The codes documented in this report are preliminary and upon nuclear security officer review may be revised to meet current compliance requirements. Rashid Gonzalez MD 04/24/2020 12:42:00 PM This report has been signed electronically. Number of Addenda: 0 Note Initiated On: 04/24/2020 11:36 AM
[2020-04-24 12:45] VITALS: BP 125/69; BP 134/60; PULSE 83; RESP 16; O2SAT 99
[2020-04-24 12:50] VITALS: BP 125/69; BP 134/60; PULSE 75; RESP 16; O2SAT 100
[2020-04-24 13:00] VITALS: BP 126/71; BP 134/60; PULSE 80; RESP 16; TEMP 37.4; O2SAT 100
[2020-04-24 13:41] VITALS: BP 134/60
== END 2020-04-24 13:50 | disposition home or self-care (01) ==
LOC: EN 10:56 → AC 10:56
PROVIDERS: PCP Family Medicine; Referring Provider Family Medicine; Visit Provider Surgery
PROC: 0DJD8ZZ Inspection of Lower Intestinal Tract, Via Natural or Artificial Opening Endoscopic (ICD-10-PCS; CPT 45378; principal; 2020-04-24 11:55)
DX: K55.21 Angiodysplasia of colon with hemorrhage (principal); K57.30 Diverticulosis of large intestine without perforation or abscess without bleeding; D64.9 Anemia, unspecified; K64.2 Third degree hemorrhoids; K64.4 Residual hemorrhoidal skin tags; Z20.822 Contact with and (suspected) exposure to COVID-19; E11.9 Type 2 diabetes mellitus without complications; E07.9 Disorder of thyroid, unspecified; L40.50 Arthropathic psoriasis, unspecified; G47.30 Sleep apnea, unspecified; E66.01 Morbid (severe) obesity due to excess calories; Z68.38 Body mass index [BMI] 38.0-38.9, adult; Z79.01 Long term (current) use of anticoagulants; Z79.899 Other long term (current) drug therapy; Z86.718 Personal history of other venous thrombosis and embolism; Z86.711 Personal history of pulmonary embolism; Z86.010 Personal history of colon polyps; Z86.73 Personal history of transient ischemic attack (TIA), and cerebral infarction without residual deficits
CPT/HCPCS: 45378; 87426; C9803; J7120; J2405

== ENCOUNTER → 2020-05-07 06:22 | Outpatient (CLI) | payer MEDICARE, OTHER, SELFPAY ==
--- NOTE | 2020-05-07 06:24 | MRI_ITS ---
MR Abdomen WO/W Contrast 05/07/2020 7:01 AM COMPARISON: CT 04/15/2020 CLINICAL HISTORY: abnormal ct abdomen -- attention liver mass seen on CT TECHNIQUE: Multiplanar T1 and T2 weighted, diffusion and dynamic post-gadolinium images were obtained through the abdomen. FINDINGS: Liver: In segment 5 of the liver there is a 3 x 2 cm T1 hyperintense/T2 hyperintense peripherally based wedge-shaped lesion. It drops signal on fat saturation sequence and does not enhance on dynamic images. Gallbladder: Unremarkable Spleen: Unremarkable Pancreas: Unremarkable Adrenal Glands: Unremarkable Kidneys: Unremarkable GI Tract: Unremarkable Vasculature: Unremarkable Lymphadenopathy: Absent Ascites: Absent Bones: No suspicious lesions MRI/MRI Abd WITH and W/O Contrast IMPRESSION: 3 cm region of focal fatty infiltration in segment 5 of the liver. Electronically Signed: Michael Durand MD at 16:56 EDT Tel , Service support ,
[2020-05-07 06:46] LABS: CREATININE FINGERSTICK 0.8 mg/dL (0.55-1.02); EGFR FINGERSTICK > 60.0000 mL/min (>60)
== END ==
PROVIDERS: PCP Family Medicine; Referring Provider Surgery; Visit Provider Surgery
DX: R93.5 Abnormal findings on diagnostic imaging of other abdominal regions, including retroperitoneum (principal)
CPT/HCPCS: 74183; A9575

== ENCOUNTER 2020-05-08 13:06 | Outpatient (CLI) | payer MEDICARE, OTHER, SELFPAY ==
[2020-03-25 08:00] VITALS: BMI 38.7
[2020-05-08 13:14] VITALS: BP 144/69; PULSE 102; RESP 14; TEMP 35.8; O2SAT 97; BMI 39.0
[2020-05-08] MEDS: 0.9% NaCl Peripheral Flush Adult/Peds IV (13:26)
[2020-05-08] MEDS: 0.9% NaCl IVPB Med Flush (250 mL) 15 ML IV (13:28)
[2020-05-08 14:15] VITALS: BP 132/69; PULSE 83; RESP 16; TEMP 35.8; O2SAT 98
== END 2020-05-08 16:00 | disposition home or self-care (01) ==
LOC: MEDOUTP 13:06
PROVIDERS: PCP Family Medicine; Referring Provider Family Medicine; Visit Provider Family Medicine
DX: D50.9 Iron deficiency anemia, unspecified (principal); K90.9 Intestinal malabsorption, unspecified
CPT/HCPCS: 96365; J1756; J7050; A4216

== ENCOUNTER 2020-05-20 13:48 | Outpatient (CLI) | payer MEDICARE, OTHER, SELFPAY ==
[2020-03-25 08:00] VITALS: BMI 38.7
[2020-05-20 13:56] VITALS: BP 140/62; PULSE 82; RESP 16; TEMP 36.5; O2SAT 100; BMI 38.9
[2020-05-20] MEDS: 0.9% NaCl IVPB Med Flush (250 mL) 15 ML IV (13:59)
[2020-05-20] MEDS: 0.9% NaCl Peripheral Flush Adult/Peds IV (13:59)
[2020-05-20 14:59] LABS: Hematocrit 33.3 % (37-47); Hemoglobin 9.5 g/dL (12.0-15.0); Mean Corp Hgb Conc 28.5 g/dL (32-36); Mean Corpuscular Hgb 21.6 pg (27.0-32.0); Mean Corpuscular Volume 75.7 fL (81-99); Mean Platelet Vol. 9.3 fl (6.2-12.0); POSITIVE MORPHOLOGY YES; Platelet Count 321 K/mm3 (150-450); RBC Distribution Width CV 21.1 % (11.6-14.6); RBC Distribution Width SD 57.4 fl (35.1-43.9); White Blood Count 6.8 K/mm3 (4.4-11.0)
[2020-05-20 15:03] LABS: Scan Indicated on CBC? Y/N YES- FLAGS NOTED
== END 2020-05-20 16:00 | disposition home or self-care (01) ==
LOC: MEDOUTP 13:48
PROVIDERS: PCP Family Medicine; Referring Provider Family Medicine; Visit Provider Family Medicine
DX: D50.9 Iron deficiency anemia, unspecified (principal); K90.9 Intestinal malabsorption, unspecified
CPT/HCPCS: 96365; 85027; J1756; J7050; A4216

== ENCOUNTER → 2020-05-21 14:16 | Outpatient (CLI) | payer MEDICARE, OTHER, SELFPAY ==
[2020-05-20 13:56] VITALS: BMI 38.9
[2020-05-21 18:33] LABS: Ferritin 144 ng/mL (8-252); Iron 66 ug/dL (50-170)
== END ==
PROVIDERS: PCP Family Medicine; Referring Provider Family Medicine; Visit Provider Family Medicine
DX: D50.9 Iron deficiency anemia, unspecified (principal); K90.9 Intestinal malabsorption, unspecified
CPT/HCPCS: 82728; 83540

== ENCOUNTER → 2020-05-29 16:28 | Outpatient (CLI) | payer MEDICARE, OTHER, SELFPAY ==
[2020-05-20 13:56] VITALS: BMI 38.9
[2020-05-29 17:54] LABS: Absolute Lymphocyte Count 1.82 X10^3/uL (0.83-4.51); Absolute Neutrophil Count 5.1 X10^3/uL (2.0-7.7); Basophil% 1.2 % (0-1); Eosinophil# 0.15 X10^3/uL; Eosinophils% 1.8 % (0-5); Hematocrit 35.5 % (37-47); Hemoglobin 9.8 g/dL (12.0-15.0); Lymphocyte # 1.82 X10^3/ul (0.83-4.51); Lymphocyte % 22.4 % (19-41); Mean Corp Hgb Conc 27.6 g/dL (32-36); Mean Platelet Vol. 9.5 fl (6.2-12.0); Monocyte# 0.86 X10^3/uL; Monocyte% 10.6 % (0-10); NRBC Flagged by Analyzer 0 % (0-5); Neutrophil # 5.12 X10^3/uL (2.7-7.7); POSITIVE MORPHOLOGY YES; Platelet Count 309 K/mm3 (150-450); RBC Distribution Width CV 22.5 % (11.6-14.6); RBC Distribution Width SD 61.1 fl (35.1-43.9); Red Blood Count 4.67 M/mm3 (4.2-5.4); White Blood Count 8.1 K/mm3 (4.4-11.0)
[2020-05-29 17:58] LABS: Differential Indicated SCAN CRITERIA MET
[2020-05-29 18:01] LABS: D-Dimer Quantitative (DVT/PE) 0.41 FEU/ug/m (0.27-0.49)
[2020-05-29 18:29] LABS: Differential Comment SCANNED
[2020-05-29 18:30] LABS: Anisocytosis 1+
== END ==
PROVIDERS: PCP Family Medicine; Referring Provider Family Medicine; Visit Provider Family Medicine
DX: D64.9 Anemia, unspecified (principal); M79.605 Pain in left leg; Z86.718 Personal history of other venous thrombosis and embolism
CPT/HCPCS: 36415; 85025; 85379

== ENCOUNTER → 2020-06-12 14:52 | Outpatient (CLI) | payer MEDICARE, OTHER, SELFPAY ==
[2020-05-20 13:56] VITALS: BMI 38.9
--- NOTE | 2020-06-12 14:55 | BI_ITS ---
MAMMOGRAPHY - BILATERAL SCREENING REASON FOR EXAM: Female, 69 years old. Routine annual screening examination. PERTINENT HISTORY: Non-contributory. Remote bilateral stereotactic breast biopsies. TECHNIQUE: Digital bilateral breast rocio (3D mammographic acquisition) in the CC and MLO projections. 2-D mediolateral oblique (MLO) and craniocaudad (CC) views of both breasts were obtained. CAD: Full Field Digital Mammography with Computer Added Detection was performed. COMPARISON: Comparison is made with prior study dated 05/05/2019 and 05/02/2018. FINDINGS: Breast Composition: The breasts are heterogeneously dense, which may obscure small masses. There are no dominant masses or suspicious calcifications. Tissue markers are seen in the retroareolar regions of both breasts. Stable scattered calcifications. Stable benign appearing bilateral axillary lymph nodes. No other significant abnormalities are identified. There has been no significant change since the prior study. BI/SCRN MAMM (CAD)W/ROCIO BILAT IMPRESSION: Stable bilateral screening mammogram. Yearly follow-up mammogram recommended. (A) ASSESSMENT CATEGORY: BIRADS Category 2: Benign. A letter regarding these results will be sent to the patient by the facility within 30 days. Approximately 10% of breast cancers are not detected by mammography. A normal mammogram should not delay biopsy of a clinically suspicious abnormality. [id number] Electronically Signed: Jarret Kenendy MD at 15:36 EDT , Service support ,
== END ==
PROVIDERS: PCP Family Medicine; Referring Provider Surgery; Visit Provider Surgery
DX: Z12.31 Encounter for screening mammogram for malignant neoplasm of breast (principal)
CPT/HCPCS: 77063; 77067

== ENCOUNTER → 2020-06-19 12:12 | Outpatient (CLI) | payer MEDICARE, OTHER, SELFPAY ==
[2020-05-20 13:56] VITALS: BMI 38.9
[2020-06-19 12:57] LABS: Absolute Lymphocyte Count 1.88 X10^3/uL (0.83-4.51); Absolute Neutrophil Count 6.8 X10^3/uL (2.0-7.7); Basophil# 0.11 X10^3/uL; Basophil% 1.1 % (0-1); Eosinophil# 0.18 X10^3/uL; Eosinophils% 1.7 % (0-5); Hematocrit 33.3 % (37-47); Hemoglobin 9.5 g/dL (12.0-15.0); Lymphocyte # 1.88 X10^3/ul (0.83-4.51); Mean Corp Hgb Conc 28.5 g/dL (32-36); Mean Corpuscular Hgb 20.9 pg (27.0-32.0); Mean Corpuscular Volume 73.2 fL (81-99); Mean Platelet Vol. 9.4 fl (6.2-12.0); Monocyte# 1.02 X10^3/uL; Monocyte% 9.8 % (0-10); NRBC Flagged by Analyzer 0 % (0-5); POSITIVE MORPHOLOGY YES; Platelet Count 368 K/mm3 (150-450); RBC Distribution Width CV 21.6 % (11.6-14.6); RBC Distribution Width SD 55.7 fl (35.1-43.9); Red Blood Count 4.55 M/mm3 (4.2-5.4); White Blood Count 10.5 K/mm3 (4.4-11.0)
[2020-06-19 13:01] LABS: Differential Indicated SCAN CRITERIA MET
[2020-06-19 13:17] LABS: D-Dimer Quantitative (DVT/PE) 0.48 FEU/ug/m (0.27-0.49)
[2020-06-19 13:25] LABS: Anisocytosis 1+; Hypochromasia 1+
[2020-06-19 14:21] LABS: ALB/GLOB Ratio 1.2 RATIO (0.9-2.4); AST(SGOT) 19 U/L (15-37); Alanine Aminotransfer ALT/SGPT 29 U/L (13-56); Albumin, Serum 3.7 g/dL (3.2-5.0); Alkaline Phosphatase 111 U/L (45-117); Anion Gap 5 (5-15); BUN 11 mg/dL (7-18); BUN/Creat Ratio 13.3 RATIO (10-20); Calcium,Total 8.4 mg/dL (8.5-10.1); Chloride 104 mmol/L (98-107); Creatinine, Serum 0.82 mg/dL (0.55-1.02); EST Glomerular Filtration Rate 73 mL/min (>60); Est Glom Filt Rate - Afr Amer 88 mL/min (>60); Globulin 3.2 g/dL (2.2-4.2); Glucose 168 mg/dL (74-106); Magnesium 2.1 mg/dL (1.6-2.6); Potassium 3.9 mmol/L (3.5-5.1); Protein, Total 6.9 g/dL (6.4-8.2); Sodium Level 138 mmol/L (136-145); T4 Free Direct 1.04 ng/dL (0.76-1.46)
[2020-06-19 15:36] LABS: Free T3 1.9 pg/mL (2.18-3.98)
== END ==
PROVIDERS: PCP Family Medicine; Referring Provider Family Medicine; Visit Provider Family Medicine
DX: R07.9 Chest pain, unspecified (principal); D64.9 Anemia, unspecified; R06.00 Dyspnea, unspecified
CPT/HCPCS: 36415; 80053; 83735; 84439; 84443; 84481; 84484; 85025; 85379

== ENCOUNTER → 2020-06-19 17:19 | Outpatient (CLI) | payer MEDICARE, OTHER, SELFPAY ==
[2020-05-20 13:56] VITALS: BMI 38.9
--- NOTE | 2020-06-19 17:25 | CT_ITS ---
INDICATION: ELEVATED D-DIMER EXAMINATION: CTA Chest WO/W Contrast Injection TECHNIQUE: Helically acquired images were obtained of the chest following IV contrast. A radiation dose optimization technique was used for this scan. 3-D postprocessing images including MIPS were reviewed. IV Contrast dosage and agent: 100 cc [id number] COMPARISON: None. FINDINGS: Lungs: 3 mm pulmonary nodule in the right upper lobe (image 127, series 2). Scarring versus atelectasis in the lung bases. Mediastinum: The cardiomediastinal silhouette is not enlarged. No mediastinal, hilar or axillary adenopathy. Mild aortic arch and coronary artery calcifications. No obvious filling defect seen within the visualized pulmonary arteries. Pleura: Unremarkable Bones/Soft tissues: There are diffuse degenerative changes of the spine. Upper abdomen: No visualized abnormalities in the upper abdomen. CT/CTA Chest W/WO Contrast IMPRESSION: No acute abnormalities in the chest. Specifically, no evidence of acute pulmonary emboli to the segmental level. 3 mm pulmonary nodule in the right upper lobe. Per Fleischner criteria, an optional follow-up chest CT may be obtained in 12 months. Electronically Signed: Mihcael Durand MD at 18:33 EDT Tel , Service support ,
== END ==
PROVIDERS: PCP Family Medicine; Visit Provider Family Medicine
DX: R07.9 Chest pain, unspecified (principal); R07.89 Other chest pain; D64.9 Anemia, unspecified; R06.00 Dyspnea, unspecified
CPT/HCPCS: 36415; 71275; 80053; 83735; 84439; 84443; 84481; 84484; 85025; 85379; Q9967

== ENCOUNTER → 2020-07-01 10:48 | Outpatient (CLI) | payer MEDICARE, OTHER, SELFPAY ==
[2020-06-26 08:24] VITALS: BMI 38.7
--- NOTE | 2020-07-01 10:49 | ECHOCS_ITS ---
Reason For Study: Chest Pain Procedure This was a 2D Doppler, Color Flow transthoracic echocardiogram. Contrast injection was performed. Exam performed in department. Left Ventricle Normal LV size. Left ventricular systolic function is normal. The estimated ejection fraction is 60 %. Stage 1 diastolic dysfunction. No regional wall motion abnormalities noted. Right Ventricle Normal RV size. Normal systolic function. Atria Normal left atrium. Normal right atrium. Mitral Valve Normal mitral valve. Tricuspid Valve Normal tricuspid valve. Mild tricuspid valve insufficiency. Aortic Valve Normal aortic valve. Great Vessels Normal aortic root. The pulmonary artery is normal size. Normal inferior vena cava. Pericardium/Pleural No pericardial effusion. Medication Diluted definity 6ml given slow IV push to enhance endocardial definition. MMode/2D Measurements & Calculations LVIDd: 4.4 cm IVSd: 1.1 cm Ao root diam: 3.2 cm LVIDs: 2.6 cm LVPWd: 1.2 cm RVDd: 2.6 cm FS: 41.2 % LAV(MOD-bp): 32.4 ml LVAd ap4: 28.4 cm2 SV(MOD-sp4): 58.4 ml LAV(MOD-bp) Indexed: 15.1 ml/m2 LVLd ap4: 7.8 cm LAV(MOD-sp2): 42.0 ml EDV(MOD-sp4): 87.5 ml LAV(MOD-sp4): 25.5 ml EDV(sp4-el): 87.4 ml LVAs ap4: 15.2 cm2 LVLs ap4: 6.9 cm ESV(MOD-sp4): 29.2 ml ESV(sp4-el): 28.3 ml EF(MOD-sp4): 66.7 % EF(sp4-el): 67.6 % SV(sp4-el): 59.0 ml LA A4 area: 12.3 cm2 LA dimension(2D): 3.6 cm RA A4 area: 8.3 cm2 Doppler Measurements & Calculations MV E max walter: 93.2 cm/sec Lat Peak E' Walter: 6.0 cm/sec Med Peak E' Walter: 6.1 cm/sec MV A max walter: 103.8 cm/sec E/E' lat: 15.5 E/E' med: 15.2 MV E/A: 0.90 Ao V2 max: 186.9 cm/sec LV V1 max: 140.8 cm/sec PA V2 max: 89.7 cm/sec Ao max P.0 mmHg LV V1 max P.9 mmHg Ao V2 mean: 121.7 cm/sec Ao mean P.8 mmHg Ao V2 VTI: 33.8 cm TR max walter: 217.8 cm/sec TR max P.0 mmHg ECHO/Echo Complete W/ Contrast Interpretation Summary Normal LV size. Left ventricular systolic function is normal. The estimated ejection fraction is 60 %. Stage 1 diastolic dysfunction. Contrast injection was performed. The study was technically difficult. Ordering Physician: Man Goodson Referring Physician: Morena Marion Performed By: Eva Chirinos, FLAVIA, RVT
--- NOTE | 2020-07-01 14:05 | STRESSREP ---
Stress Test Report Take myocardial perfusion stress test. 69-year-old lady with a history of preoperative clearance for preop cardiac evaluation. Stress protocol: Resting EKG demonstrates normal sinus rhythm with a rate of 75 bpm normal intervals are noted resting blood pressure is 132/74 mmHg. 0.4 mg of regadenoson was infused per usual protocol followed by rapid intravenous saline flush injection continuous EKG monitoring was performed. The maximum heart rate attained was 91 bpm which was 60% of maximum predicted heart rate the maximum workload was 1 metabolic equivalent. At rest there were no ST or T wave changes noted to suggest ischemia and at peak infusion nonspecific ST changes were noted. No clinical angina was noted. Myocardial perfusion protocol. 14.7 mCi of technetium 99m sestamibi was injected at rest. 0.4 mg of regadenoson was infused per usual protocol. At peak infusion 42.0 mCi of technetium 99m sestamibi was injected stress images were obtained stress and rest images were reconstructed and compared in the short axis vertical long and horizontal long axis. Gated images were also obtained. Perfusion SPECT analysis: Review of the stress images demonstrate normal uptake of tracer noted in all areas of the myocardium. There is some anterior breast wall attenuation noted. The resting images demonstrate a similar pattern. No obvious areas of reversibility are noted to suggest ischemia and no previous infarct is noted. Gated SPECT analysis: The gated ejection fraction is 60%. Conclusion Normal pharmacologic myocardial perfusion stress test. Preserved ejection fraction.
== END ==
PROVIDERS: PCP Family Medicine; Referring Provider Internal Medicine Cardiovascular Disease; Visit Provider Internal Medicine Cardiovascular Disease
DX: R07.89 Other chest pain (principal); Z86.73 Personal history of transient ischemic attack (TIA), and cerebral infarction without residual deficits
CPT/HCPCS: 78452; 93017; 93306; A9500; Q9957; A4216; C8929; J2785

== ENCOUNTER → 2020-07-16 14:43 | Outpatient (CLI) | payer MEDICARE, OTHER, SELFPAY ==
[2020-06-26 08:24] VITALS: BMI 38.7
[2020-07-16 18:02] LABS: Absolute Neutrophil Count 4.1 X10^3/uL (2.0-7.7); Basophil# 0.05 X10^3/uL; Basophil% 0.8 % (0-1); Eosinophil# 0.11 X10^3/uL; Eosinophils% 1.7 % (0-5); Hematocrit 40.5 % (37-47); Hemoglobin 11.7 g/dL (12.0-15.0); Lymphocyte % 21.9 % (19-41); Mean Corp Hgb Conc 28.9 g/dL (32-36); Mean Corpuscular Hgb 23.6 pg (27.0-32.0); Mean Corpuscular Volume 81.7 fL (81-99); Mean Platelet Vol. 10.6 fl (6.2-12.0); Monocyte# 0.69 X10^3/uL; Monocyte% 10.8 % (0-10); NRBC Flagged by Analyzer 0 % (0-5); Neutrophil # 4.06 X10^3/uL (2.7-7.7); Neutrophil % 63.7 % (47-70); POSITIVE MORPHOLOGY YES; Platelet Count 262 K/mm3 (150-450); RBC Distribution Width CV 25.9 % (11.6-14.6); RBC Distribution Width SD 76.5 fl (35.1-43.9); Red Blood Count 4.96 M/mm3 (4.2-5.4); White Blood Count 6.4 K/mm3 (4.4-11.0)
[2020-07-16 18:07] LABS: Differential Indicated SCAN CRITERIA MET
[2020-07-16 18:33] LABS: ALB/GLOB Ratio 1.2 RATIO (0.9-2.4); AST(SGOT) 31 U/L (15-37); Alanine Aminotransfer ALT/SGPT 33 U/L (13-56); Albumin, Serum 3.7 g/dL (3.2-5.0); Alkaline Phosphatase 115 U/L (45-117); Anion Gap 9 (5-15); BUN 10 mg/dL (7-18); BUN/Creat Ratio 13.1 RATIO (10-20); Calcium,Total 8.8 mg/dL (8.5-10.1); Chloride 103 mmol/L (98-107); Creatinine, Serum 0.76 mg/dL (0.55-1.02); EST Glomerular Filtration Rate 80 mL/min (>60); Est Glom Filt Rate - Afr Amer 96 mL/min (>60); Globulin 3.2 g/dL (2.2-4.2); Glucose 204 mg/dL (74-106); Potassium 3.8 mmol/L (3.5-5.1); Protein, Total 6.9 g/dL (6.4-8.2); Sodium Level 138 mmol/L (136-145)
[2020-07-16 18:38] LABS: Anisocytosis 1+; Differential Comment SCANNED
[2020-07-16 18:43] LABS: BNP,B-Type NATRIURETIC PEPTIDE 7.5 pg/mL (0-100)
== END ==
PROVIDERS: PCP Family Medicine; Referring Provider Family Medicine; Visit Provider Family Medicine
DX: R60.0 Localized edema (principal); I50.33 Acute on chronic diastolic (congestive) heart failure; D64.9 Anemia, unspecified; D50.9 Iron deficiency anemia, unspecified; K90.9 Intestinal malabsorption, unspecified; Z51.81 Encounter for therapeutic drug level monitoring
CPT/HCPCS: 36415; 80053; 83880; 85025

== ENCOUNTER 2020-07-23 09:06 | Day surgery (SDC) | payer MEDICARE, OTHER, SELFPAY ==
[2020-06-26 08:24] VITALS: BMI 38.7
[2020-07-23] VITALS (7 sets, daily range): BP systolic 112–150; BP diastolic 59–81; PULSE 67–81; RESP 14–20; TEMP 36.2–36.7; O2SAT 97–99; BMI 39.4
--- NOTE | 2020-07-23 09:17 | PCM.HP.BLA ---
History and Physical Date of Admission: 07/23/20 Intake Visit Reasons: Esophagogastroduodenoscopy Chief Complaint: discuss hemorrhoids/egd Hydrator Operator Required: No Is patient in pain?: No Allergies cefdinir Allergy (Verified 06/25/20 08:07) Rash ceftriaxone sodium [From Rocephin] Allergy (Verified 06/25/20 08:07) Rash ciprofloxacin [From Cipro] Allergy (Verified 06/25/20 08:07) Rash ciprofloxacin HCl [From Cipro] Allergy (Verified 06/25/20 08:07) Rash levofloxacin [From Levaquin] Allergy (Verified 06/25/20 08:07) Rash Medications magnesium 400 mg PO DAILY 04/02/14 [History Confirmed 06/25/20] tramadol 50 mg PO DAILY PRN PRN 05/24/15 [History Confirmed 06/25/20] hydroxychloroquine 200 mg tablet 200 mg PO BID 04/22/20 [History Confirmed 06/25/20] levothyroxine 100 mcg tablet 100 mcg PO DAILY tab 04/22/20 [History Confirmed 06/25/20] acetaminophen 650 mg PO DAILY 04/23/20 [History Confirmed 06/25/20] apixaban 2.5 mg PO BID 04/23/20 [History Confirmed 06/25/20] ergocalciferol (vitamin D2) 50,000 unit PO GAVIN 04/23/20 [History Confirmed 06/25/20] iron sucrose 100 mg IV UD 04/23/20 [History Confirmed 06/25/20] vitamin R56-bstrs acid 1 ea PO GAVIN 04/23/20 [History Confirmed 06/25/20] [facility] Medical History Back pain Diabetes Fatigue Hemorrhoid History of arthritis History of colon polyps History of CVA (cerebrovascular accident) History of DVT (deep vein thrombosis) History of pulmonary embolism Interstitial lung disease Macular degeneration Neck pain Psoriatic arthritis Rectal bleeding SOB (shortness of breath) Thyroid disease Surgical History History of cholecystectomy History of colonoscopy (~2018) History of colonoscopy (~04/2020) History of hemorrhoidectomy History of inferior vena caval filter placement History of laparoscopic appendectomy history of omentectomy History of varicose vein ligation Total knee replacement status Family History Other Hypertension blood clots Social History Smoking Status: Never smoker alcohol intake: current alcohol intake frequency: holidays/special occasions only HPI HPI HPI: CONCETTA DOOLEY, is a 69 F who presents to the office today for surgical consultation regarding ongoing anemia and ongoing intermittent episodes of rectal bleeding. The patient is referred by Dr. Nehemias Walter and a written copy of my surgical consult recommendations will return to him. The patient has had rectal bleeding now for quite a period of time. She states that it will drip in the commode. More recently she has had some intermittent clotting. Because of previous problems with pulmonary embolization she has been on Eliquis therapy. She did see her vascular specialist May 10, 2020 at [facility] and her Eliquis is currently been held. Most recently however within the past week she has had problems with chest pain shortness of breath and dyspnea. A chest pressure phenomenon. Looking back through some laboratory it appears November 17, 2018 a D-dimer was 0.38 then March 21, 2020 it was 0.31 and then May 29 it was 0.41 and then most recently on June 19, 2020 was 0.48. Because of her symptoms on June 19, [address] of the chest done at the [facility]. A 3 mm pulmonary nodule in the right upper lobe was identified. Follow-up in 12 months. There was no evidence for acute pulmonary embolization. I had also been involved with her care previously and on May 07, 2000 an MRI of the abdomen was obtained because of a previous abnormal abdominal CT. In segment 5 of the liver there is a 3 x 2 cm hyperintense wedge which is felt to be fatty infiltration. April 15, 2020 at the [facility] she had had a CT of the abdomen suggesting this liver lesion. Previously Dr. Ryan Joseph on September 05, 2018 and performed a colonoscopy with diagnosis of rectal bleeding. A sigmoid tubular adenoma was removed. Then more recently with a diagnosis of rectal bleeding I performed a colonoscopy on her on April 24, 2020. The digital exam showed some nonthrombosed external and internal hemorrhoids. There were multiple small patchy Sydney angiodysplastic lesions found in the cecum. Treated those with a heater probe. There was a suggestion of possible recent bleeding but there certainly was no clot or significant amounts of liquid blood other than right at the small lesion. It was felt less likely that these would be the source of dripping blood in the commode. Scattered diverticula was noted in the sigmoid colon. It was presumed that her recurrent rectal bleeding was secondary to recurrent hemorrhoids. Now the patient has previously had a PPH stapled hemorrhoidopexy performed out of town. She states that was done for rectal bleeding. She states that within a month after the procedure she had recurrent rectal bleeding and she was seen by her surgeon who did an anoscopy who did not detect any problem with the surgical procedure. As of June 19, 2020 her hemoglobin is white blood cell count is 10.5 with a hemoglobin 9.5 hematocrit 33.3 platelet count 368,000. BUN is 11 creatinine 0.82. The patient is being referred now by Dr. Nehemias Walter for consideration of esophagogastroduodenoscopy. And ongoing inspection for source of iron supplement resistant anemia is being requested ROS General General: Yes weight change, fatigue and weakness; No appetite, colon cancer or breast cancer HEENT HEENT: No difficulty swallowing, eye injury, eye surgery, swollen glands or hoarseness Endo Endocrine: Yes thyroid disease and diabetes mellitus; No thyroid cancer, Hair loss, heat intolerance or cold intolerance Skin Skin: No rash or changing moles Breast Breast: No left breast lump, right breast lump, nipple discharge, breast pain, abnormal mammogram, abnormal US or breast enlargement Musc Musculoskeletal: Yes back problems and arthritis; No rheumatoid arthritis, gout or joint pain Cardio Cardiovascular: No murmur, pacemaker, heart disease, atrial fibrillation, high blood pressure, heart attack, heart stent, palpitations, shortness of breat with exertion or chest pain Psych Psychiatric: No depression, anxiety or hearing voices Resp Respiratory: Yes shortness of breath, Yes sleep apnea, No cough, No COPD, No asthma, No emphysema and No wheezing Gastro Gastrointestinal: No abdominal pain, No nausea or vomiting, No diarrhea, No constipation, Yes blood in stool, No acid reflux, Yes hemorrhoids, No ulcers, No gallbladder problem and Yes black,tarry stools Demian Hematologic: Yes blood thinners, No blood disorders, No bleeding, Yes anemia and Yes blood clots Neuro Neurologic: No system reviewed and no additional complaints, except as documented, No as per HPI, No abnormal gait, No abnormal hearing, No abnormal movements, No abnormal speech, No behavioral changes, No burning sensations, No confusion, No convulsions, No disequilibrium, No dizziness, No localized weakness, No frequent falls, No headache(s), No lack of coordination, No loss of vision, No memory loss, No numbness, No other visual disturbances, No radicular pain, No restless legs, No sensory deficit, No syncope, No tingling, No tremor(s), Yes weakness and No other Exam Const General: cooperative, comfortable and no acute distress Nutritional Appearance: obese HENMT Head: normal to inspection Resp Effort & Inspection: normal respiratory effort Auscultation: clear to auscultation bilaterally Cardio Rate: regular rate Rhythm: regular rhythm GI Palpation: soft Other: Overweight, not able to detect any internal organs of concern, no guarding, minimal tenderness left lower quadrant and right lower quadrant Skin General: no rashes or lesions noted Neuro Cognition: normal cognition Extrem General: no calf tenderness bilaterally Psych Appearance: grossly normal Thought Process: normal Assessment and Plan Assessment and Plan (1) Rectal bleeding: Status: Acute (2) Chest pressure: Status: Acute (3) Chronic anemia: Status: Chronic Plan Details Additional Comments: 69-year-old female referred for ongoing surgical assistance regarding chronic anemia which appears to be resistant to iron supplementation. A request for a esophagogastroduodenoscopy has been made. Although this may assist with identifying a additional source for anemia I instructed the patient it will not explain bright red blood per rectum or dripping in the commode. The patient states that she will intermittently have rectal bleeding and more recently a few clots. It is not clear whether this is the sole etiology to her chronic anemia. She has had a PPH stapled hemorrhoidopexy an attempt to treat what was thought were bleeding hemorrhoids. A follow-up anoscopy by that surgeon did not did not demonstrate hemorrhoidal bleeding at that time. The patient has known diverticulosis. The patient has some cecal angiodysplasia. It is not likely that those would be the source of dripping in the commode bright red rectal bleeding. It is also been mentioned to the patient that she might pursue a capsule endoscopy. Most concern to me currently is that she is complaining of a new onset of chest pressure. She has had a history of pulmonary embolization. She has been taken off of her anticoagulation by her vascular specialist. A CTA of the chest was unremarkable. She does not currently have an etiology to her chest discomfort. She is running her chronic anemia. I recommend to her a esophagogastroduodenoscopy with possible biopsy or polypectomy as indicated. However I recommend that we obtain cardiology review prior to attempting such a procedure. I believe she is do 1 more attempt at trying to decipher the etiology to her new onset chest pressure. Regarding her bright red rectal bleeding I have suggested to her that when it occurs as it seems to be quite intermittent that she contact the office and if we have the capacity I would then portend that we attempt a rigid sigmoidoscopy at the time the bleeding is occurring. I need to help decipher as to whether this is potentially internal hemorrhoidal bleeding or whether the blood seems to be emanating more proximally. Whether the patient needs a future capsule endoscopy that will be depending upon the finding of the upper endoscopy perhaps. I appreciate the opportunity of assisting with her surgical care. Pending cardiology clearance we will pursue the upper endoscopy. Copy: Dr. Nehemias Walter and Dr. Morena Gonzalez M.D., F.A.C.S. I have re-examined the patient. There are no clinical changes since date of exam. Rashid Gonzalez M.D., F.A.C.S.
[2020-07-23] MEDS: Lactated Ringers 1,000 ML 100 ML IV (09:54)
[2020-07-23 10:10] LABS: Bedside Glucose 153 mg/dL (70-110)
--- NOTE | 2020-07-23 10:15 | IMM_PTH ---
PATIENT: CONCETTA DOOLEY LOC: EN U#:[id number] AGE/SX: 69/F ROOM: RE07/23/[address]: Dr. Rashid Gonzalez MD : 1950 BED: DIS: 07/23/2020 SPEC #: [id number] RECD: 07/23/20 12:53 STATUS: SHANE REQ #: [id number] SHAKIR: 07/23/20 10:[address]: Rashid Gonzalez DEPT: IMMUNOHISTOCHEMISTRY RECD BY: Ellie Oshea ENTERED: 07/23/20 12:54 SP TYPE: IMMUNO OTHR DR: Dr. Morena Marion, DO Tissues: B - Stomach, NOS Procedures: H Pylori (initial) PHYSICIAN & INSTITUTION [place] [address] SPECIMEN INFORMATION: Tissue Source: B ? Antrum biopsy Clinical Info: Chronic anemia Specimen Number: [id number] CPT code: 98449 METHODOLOGY: Deparaffinized sections of prefer/formalin-fixed tissue or PAP/DQ stained slides are incubated with monoclonal/polyclonal antibodies/oligonucleotide probes. Localization is made via biotin free immunoperoxidase method. Appropriate controls are performed and reacted as expected. Results on target cell population are indicated in the following table: RESULTS: ANTIBODY / CLONE RESULT Block B H Pylori (polyclonal) negative These tests were developed and their performance characteristics determined by [facility]. They may not have been cleared or approved by the U.S. Food and Drug Administration. The FDA has determined that such clearance or approval is not necessary. INTERPRETATION: B. Antrum biopsy: Negative for Helicobacter pylori organisms. AM:lilia 07/24/2020
--- NOTE | 2020-07-23 10:15 | EGD_PTH ---
PATIENT: CONCETTA DOOLEY LOC: EN U#:[id number] AGE/SX: 69/F ROOM: RE07/23/[address]: Dr. Rashid Gonzalez MD : 1950 BED: DIS: 07/23/2020 SPEC #: [id number] RECD: 07/23/20 11:41 STATUS: SHANE EFRAIN #: [id number] SHAKIR: 07/23/20 10:[address]: Rashid Gonzalez DEPT: SURGICAL PATHOLOGY RECD BY: Anna Glover ENTERED: 07/23/20 13:20 SP TYPE: EGD BIOPSY OT DR: Dr. Morena Marion DO Tissues: A - Duodenum, NOS B - Gastric mucous membrane C - Esophagus, NOS Procedures: Special Stain Group II Surgery Specimen Level IV Alcian Blue/PAS (control) HEADER OPERATION: EGD ([facility]) PRE-OP DIAGNOSIS: Chronic anemia TISSUE SUBMITTED: A ? Duodenum biopsy, B ? Antrum biopsy for H. pylori and path, C ? Distal esophagus biopsy MICROSCOPIC DIAGNOSIS A. Duodenum, biopsy: No pathologic change. B. Gastric antrum, biopsy: Mild chronic gastritis. See comment. C. Distal esophagus, biopsy: Focal changes of reflux. Gastric mucosa with mild chronic inflammation. No evidence of goblet cell metaplasia. See comment. AM:lilia 07/24/2020 COMMENT B. The results of immunohistochemistry for Helicobacter pylori will be reported separately ([id number]). C. Alcian blue/PAS stain with matched control supports the above diagnosis. MICROSCOPIC DESCRIPTION Slides are reviewed. GROSS DESCRIPTION A - Received in fixative is one container labeled with the patient's name and designated duodenum biopsy. The specimen consists of one irregular fragment of light troy soft tissue that measures 0.3 x 0.2 x 0.1 cm. The specimen is totally submitted in one cassette. B - Received in fixative is one container labeled with the patient's name and designated antrum biopsy. The specimen consists of one irregular fragment of light troy soft tissue that measures 0.4 x 0.3 x 0.1 cm. The specimen is totally submitted in one cassette. C - Received in fixative is one container labeled with the patient's name and designated distal esophagus biopsy. The specimen consists of multiple irregular fragments of light troy soft tissue that in aggregate measure 1.4 x 0.3 x 0.1 cm. The specimen is totally submitted in one cassette. / SJ:rg 07/23/20 TC:3 CPT: 26815 x3, 05125
--- NOTE | 2020-07-23 11:36 | OP.CCLET_ITS ---
07/23/2020 Nehemias Walter [address] [place] [address] Re : Upper GI endoscopy procedure for Vicky Glover Dear Dr. Walter This procedure was performed on Thursday, July 23, 2020. My impressions and recommendations are as follows: Impressions : - LA Grade A reflux esophagitis. Biopsied. - Small hiatal hernia. Possible short segment Fritz's; biopsies pending - Erythematous mucosa in the antrum. Biopsied. - Normal examined duodenum. Biopsied. Recommendations : - Discharge patient to home. - Resume previous diet. - Continue present medications. - Await pathology results. - Telephone my office for pathology results in 1 week. Findings do not correlatate with active blood loss. The tissues did bleed easily with biopsy. My findings are described in the full procedure note, which is enclosed. If I can be of further assistance, please feel free to contact me at Doctor phone number(s): Work: . Sincerely, Rashid Gonzalez MD 07/23/2020 11:35:26 AM This report has been signed electronically.
--- NOTE | 2020-07-23 11:36 | OP.EGD_ITS ---
Patient Name: Vicky Glover Procedure Date: 07/23/2020 11:13 AM Date of : 1950 Age: 69 Procedure: Upper GI endoscopy Indications: Iron deficiency anemia Providers: Rashid Gonzalez MD Medicines: See the Anesthesia note for documentation of the administered medications Complications: No immediate complications. Procedure: Pre-Anesthesia Assessment: - Prior to the procedure, a History and Physical was performed, and patient medications and allergies were reviewed. The patient's tolerance of previous anesthesia was also reviewed. The risks and benefits of the procedure and the sedation options and risks were discussed with the patient. All questions were answered, and informed consent was obtained. Prior Anticoagulants: The patient has taken Eliquis (apixaban), last dose was 1 day prior to procedure. ASA Grade Assessment: III - A patient with severe systemic disease. After reviewing the risks and benefits, the patient was deemed in satisfactory condition to undergo the procedure. After obtaining informed consent, the endoscope was passed under direct vision. Throughout the procedure, the patient's blood pressure, pulse, and oxygen saturations were monitored continuously. The gastroscope was introduced through the mouth, and advanced to the second part of duodenum. The upper GI endoscopy was accomplished without difficulty. The patient tolerated the procedure well. Scope In: 11:23:19 AM Scope Out: 11:29:39 AM Total Procedure Duration Time 0 hours 6 minutes 20 seconds Findings: LA Grade A (one or more mucosal breaks less than 5 mm, not extending between tops of 2 mucosal folds) esophagitis with no bleeding was found 43 cm from the incisors. Biopsies were taken with a cold forceps for histology. A small hiatal hernia was present. Diffuse mildly erythematous mucosa without bleeding was found in the gastric antrum. Biopsies were taken with a cold forceps for histology. The examined duodenum was normal. Biopsies were taken with a cold forceps for histology. Impression: - LA Grade A reflux esophagitis. Biopsied. - Small hiatal hernia. Possible short segment Fritz's; biopsies pending - Erythematous mucosa in the antrum. Biopsied. - Normal examined duodenum. Biopsied. Recommendation: - Discharge patient to home. - Resume previous diet. - Continue present medications. - Await pathology results. - Telephone my office for pathology results in 1 week. Findings do not correlatate with active blood loss. The tissues did bleed easily with biopsy. Procedure Code(s): --- Professional --- 78112, Esophagogastroduodenoscopy, flexible, transoral; with biopsy, single or multiple Diagnosis Code(s): --- Professional --- K21.0, Gastro-esophageal reflux disease with esophagitis K44.9, Diaphragmatic hernia without obstruction or gangrene K31.89, Other diseases of stomach and duodenum D50.9, Iron deficiency anemia, unspecified CPT copyright 2017 [employer]. All rights reserved. The codes documented in this report are preliminary and upon energy consultant review may be revised to meet current compliance requirements. Rashid Gonzalez MD 07/23/2020 11:35:26 AM This report has been signed electronically. Number of Addenda: 0 Note Initiated On: 07/23/2020 11:13 AM
== END 2020-07-23 12:24 ==
LOC: EN 09:08 → AC 09:13
PROVIDERS: PCP Family Medicine; Referring Provider Family Medicine; Visit Provider Surgery
PROC: 0DJ08ZZ Inspection of Upper Intestinal Tract, Via Natural or Artificial Opening Endoscopic (ICD-10-PCS; CPT 43235; principal; 2020-07-23 10:10)
DX: K29.51 Unspecified chronic gastritis with bleeding (principal); D50.9 Iron deficiency anemia, unspecified; K21.00 Gastro-esophageal reflux disease with esophagitis, without bleeding; K44.9 Diaphragmatic hernia without obstruction or gangrene; K31.89 Other diseases of stomach and duodenum; K64.4 Residual hemorrhoidal skin tags; K64.8 Other hemorrhoids; E11.9 Type 2 diabetes mellitus without complications; E07.9 Disorder of thyroid, unspecified; L40.50 Arthropathic psoriasis, unspecified; G47.33 Obstructive sleep apnea (adult) (pediatric); E66.9 Obesity, unspecified; Z79.01 Long term (current) use of anticoagulants; Z86.718 Personal history of other venous thrombosis and embolism; Z86.711 Personal history of pulmonary embolism; Z86.73 Personal history of transient ischemic attack (TIA), and cerebral infarction without residual deficits; Z86.010 Personal history of colon polyps
CPT/HCPCS: 43239; 82962; 88305; 88313; 88342; J7120; J2405

== ENCOUNTER → 2020-09-05 14:07 | Outpatient (CLI) | payer MEDICARE, OTHER, SELFPAY ==
[2020-09-05 13:56] VITALS: BMI 39.4
[2020-09-05 14:20] LABS: Hemoglobin 11.7 g/dL (12.0-15.0); Mean Corp Hgb Conc 30.8 g/dL (32-36); Mean Corpuscular Hgb 25.8 pg (27.0-32.0); Mean Corpuscular Volume 83.7 fL (81-99); Mean Platelet Vol. 8.7 fl (6.2-12.0); Platelet Count 238 K/mm3 (150-450); RBC Distribution Width CV 19.8 % (11.6-14.6); RBC Distribution Width SD 60.8 fl (35.1-43.9); Red Blood Count 4.54 M/mm3 (4.2-5.4); White Blood Count 7.2 K/mm3 (4.4-11.0)
[2020-09-05 14:32] LABS: Anion Gap 4 (5-15); BUN 9 mg/dL (7-18); BUN/Creat Ratio 10.8 RATIO (10-20); Calcium,Total 8.7 mg/dL (8.5-10.1); Chloride 106 mmol/L (98-107); Creatinine, Serum 0.84 mg/dL (0.55-1.02); EST Glomerular Filtration Rate 72 mL/min (>60); Est Glom Filt Rate - Afr Amer 87 mL/min (>60); Glucose 143 mg/dL (74-106); Potassium 4.1 mmol/L (3.5-5.1); Sodium Level 139 mmol/L (136-145)
== END ==
PROVIDERS: PCP Family Medicine; Referring Provider Physician Assistant; Visit Provider Physician Assistant
DX: K64.3 Fourth degree hemorrhoids (principal)
CPT/HCPCS: 36415; 80048; 85027

== ENCOUNTER → 2020-09-09 12:51 | Outpatient (CLI) | payer MEDICARE, OTHER, SELFPAY ==
[2020-08-06 10:31] VITALS: BMI 39.4
[2020-09-05 13:56] VITALS: BMI 39.4
--- NOTE | 2020-09-09 12:52 | VDLE_ITS ---
Reason For Study: Swelling RIGHT LEFT GSV is normal. GSV is normal. CFV is compressible, spontaneous, phasic, CFV is compressible, spontaneous, phasic, competent and demonstrates normal competent, and demonstrates normal augmentation. augmentation. FV is compressible, spontaneous, phasic, FV is compressible, spontaneous, phasic, competent and demonstrates normal competent and demonstrates normal augmentation. augmentation. POP V is compressible, spontaneous, phasic, POP V is compressible, spontaneous, phasic, competent and demonstrates normal competent and demonstrates normal augmentation. augmentation. T/P Trunk is compressible. T/P Trunk is compressible. PTV is compressible. PTV is compressible. RT PerV is compressible. LT PerV is compressible. Procedure This is a venous duplex using B-mode, color flow and spectral Doppler. Exam performed in department. A preliminary report was called and/or faxed to [facility]. VL/Venous Duplex US - Igor Extrem Interpretation Summary No evidence for acute deep venous thrombosis bilateral lower extremities with p atent and compressible bilateral great saphenous veins. Ordering Physician: Elizabet Calixto Referring Physician: Morena Marion Performed By: Yasmin Flores RVT and Student
== END ==
PROVIDERS: PCP Family Medicine; Referring Provider Physician Assistant; Visit Provider Physician Assistant
DX: M79.89 Other specified soft tissue disorders (principal); Z86.711 Personal history of pulmonary embolism
CPT/HCPCS: 93970

== ENCOUNTER 2020-09-18 06:04 | Day surgery (SDC) | payer MEDICARE, OTHER, SELFPAY ==
[2020-08-06 10:31] VITALS: BMI 39.4
[2020-09-05 13:56] VITALS: BMI 39.4
--- NOTE | 2020-09-14 08:05 | EKG12_ITS ---
Test Reason : PRE OP Blood Pressure : / mmHG Vent. Rate : 069 BPM Atrial Rate : 069 BPM P-R Int : 156 ms QRS Dur : 086 ms QT Int : 432 ms P-R-T Axes : 073 048 062 degrees QTc Int : 462 ms Normal sinus rhythm Normal ECG Confirmed by ZACH REN, DANIKA ([id number]), field map editor TELMA MARIO ([id number]) on 09/19/2020 1:09:18 PM Referred By: Rashid Gonzalez Confirmed By:DANIKA SERRANO MD
[2020-09-14 08:11] LABS: Hematocrit 36.9 % (37-47); Hemoglobin 11.2 g/dL (12.0-15.0); Mean Corp Hgb Conc 30.4 g/dL (32-36); Mean Corpuscular Hgb 25.6 pg (27.0-32.0); Mean Corpuscular Volume 84.4 fL (81-99); Mean Platelet Vol. 9.2 fl (6.2-12.0); Platelet Count 254 K/mm3 (150-450); RBC Distribution Width CV 18.4 % (11.6-14.6); RBC Distribution Width SD 56.5 fl (35.1-43.9); Red Blood Count 4.37 M/mm3 (4.2-5.4); White Blood Count 5.8 K/mm3 (4.4-11.0)
[2020-09-14 09:04] LABS: Anion Gap 9 (5-15); BUN 11 mg/dL (7-18); Calcium,Total 8.6 mg/dL (8.5-10.1); Chloride 106 mmol/L (98-107); Creatinine, Serum 0.79 mg/dL (0.55-1.02); EST Glomerular Filtration Rate 77 mL/min (>60); Est Glom Filt Rate - Afr Amer 93 mL/min (>60); Glucose 179 mg/dL (74-106); Potassium 4.1 mmol/L (3.5-5.1); Sodium Level 139 mmol/L (136-145)
[2020-09-18] VITALS (7 sets, daily range): BP systolic 120–154; BP diastolic 68–99; PULSE 72–90; RESP 16–18; TEMP 36.1–36.4; O2SAT 94–97; BMI 39.6
[2020-09-18] MEDS: Lactated Ringers 1,000 ML 100 ML IV (06:43)
--- NOTE | 2020-09-18 07:15 | PCM.HP.BLA ---
History and Physical Date of Admission: 09/18/20 Visit Reasons: UPDATE H & P SURGERY 09/18 Chief Complaint: update H&P for hemorrhoidectomy Virtual Classroom Manager Required: No Is patient in pain?: No Allergies cefdinir Allergy (Verified 09/05/20 13:56) Rash ceftriaxone sodium [From Rocephin] Allergy (Verified 09/05/20 13:56) Rash ciprofloxacin [From Cipro] Allergy (Verified 09/05/20 13:56) Rash ciprofloxacin HCl [From Cipro] Allergy (Verified 09/05/20 13:56) Rash levofloxacin [From Levaquin] Allergy (Verified 09/05/20 13:56) Rash Medications magnesium 400 mg PO DAILY 04/02/14 [History Confirmed 09/05/20] tramadol 50 mg PO DAILY PRN PRN 05/24/15 [History Confirmed 09/05/20] hydroxychloroquine 200 mg tablet 200 mg PO BID 04/22/20 [History Confirmed 09/05/20] levothyroxine 100 mcg tablet 100 mcg PO DAILY tab 04/22/20 [History Confirmed 09/05/20] acetaminophen 650 mg PO BID 04/23/20 [History Confirmed 09/05/20] ergocalciferol (vitamin D2) 50,000 unit PO GAVIN 04/23/20 [History Confirmed 09/05/20] iron sucrose 100 mg IV UD 04/23/20 [History Confirmed 09/05/20] vitamin X37-myqhn acid 1 ea PO GAVIN 04/23/20 [History Confirmed 09/05/20] furosemide 40 mg PO DAILY 07/19/20 [History Confirmed 09/05/20] vit C,Q-Au-ygtnx-lutein-zeaxan [PreserVision AREDS-2] 1 tab PO BID 07/19/20 [History Confirmed 09/05/20] Is last menstrual period known: No Post menopausal: Yes Patient : No PFSH Medical History Anemia Arthritis Back pain BPPV (benign paroxysmal positional vertigo) Cardiology follow-up encounter (~06/26/20) Chest pain Chronic cough CPAP (continuous positive airway pressure) dependence Diabetes Fatigue Hemorrhoid History of arthritis History of colon polyps History of CVA (cerebrovascular accident) (2014) History of DVT (deep vein thrombosis) History of edema History of pulmonary embolism (12/2013) History of stress test (~07/01/20) Hx of echocardiogram (~07/01/20) Hypothyroidism Interstitial lung disease Leg cramps Macular degeneration Neck pain Neuropathy Non-smoker Obesity Obstructive sleep apnea Psoriatic arthritis Rectal bleeding Recurrent gastrointestinal hemorrhage Sleep apnea Thyroid disease Wears glasses Surgical History History of cholecystectomy History of colonoscopy (2018) History of colonoscopy (04/2020) History of hemorrhoidectomy History of inferior vena caval filter placement (03/2014) History of laparoscopic appendectomy history of omentectomy History of varicose vein ligation Total knee replacement status Family History Other Hypertension blood clots Social History Smoking Status: Never smoker alcohol intake: current alcohol intake frequency: holidays/special occasions only HPI HPI HPI: CONCETTA DOOLEY, is a 69 F who presents to the office today for an update history and physical for an upcoming hemorrhoidectomy. Patient denies recent hospitalizations or illnesses since her last office visit. She notes there was 1 week where she may not have had any bleeding. She notes this past week she has had a moderate amount of bleeding. She notes feeling weaker this week due to the bleeding. She states her vascular surgeon, down in [place], had taken her off of the Eliquis due to the bleeding. She has a history of CVA and PE which is why she is on Eliquis. She denies previous complications with anesthesia. ROS General General: Yes weight change, fatigue and weakness; No appetite, colon cancer or breast cancer HEENT HEENT: No difficulty swallowing, eye injury, eye surgery, swollen glands or hoarseness Endo Endocrine: Yes thyroid disease and diabetes mellitus; No thyroid cancer, Hair loss, heat intolerance or cold intolerance Skin Skin: No rash or changing moles Breast Breast: No left breast lump, right breast lump, nipple discharge, breast pain, abnormal mammogram, abnormal US or breast enlargement Musc Musculoskeletal: Yes back problems and arthritis; No rheumatoid arthritis, gout or joint pain Cardio Cardiovascular: No murmur, pacemaker, heart disease, atrial fibrillation, high blood pressure, heart attack, heart stent, palpitations, shortness of breat with exertion or chest pain Psych Psychiatric: No depression, anxiety or hearing voices Resp Respiratory: Yes shortness of breath, Yes sleep apnea, No cough, No COPD, No asthma, No emphysema and No wheezing Gastro Gastrointestinal: No abdominal pain, No nausea or vomiting, No diarrhea, No constipation, Yes blood in stool, No acid reflux, Yes hemorrhoids, No ulcers, No gallbladder problem and Yes black,tarry stools Demian Hematologic: Yes blood thinners, No blood disorders, No bleeding, Yes anemia and Yes blood clots Neuro Neurologic: No system reviewed and no additional complaints, except as documented, No as per HPI, No abnormal gait, No abnormal hearing, No abnormal movements, No abnormal speech, No behavioral changes, No burning sensations, No confusion, No convulsions, No disequilibrium, No dizziness, No localized weakness, No frequent falls, No headache(s), No lack of coordination, No loss of vision, No memory loss, No numbness, No other visual disturbances, No radicular pain, No restless legs, No sensory deficit, No syncope, No tingling, No tremor(s), Yes weakness and No other Exam Const General: cooperative, healthy appearing, comfortable and no acute distress [facility] Head: normal to inspection Eyes General: appearance normal, both eyes and all related structures Neck Neck: normal visual inspection Resp Effort & Inspection: normal respiratory effort Auscultation: clear to auscultation bilaterally Cardio Rate: regular rate Rhythm: regular rhythm GI Inspection: normal to inspection Auscultation: normal bowel sounds Skin General: no rashes or lesions noted Neuro General: no focal motor deficits and CN's II-XI intact bilaterally Extrem General: normal to inspection Psych Appearance: grossly normal Affect: normal affect COVID (Procedure Consent) Procedure Criteria Procedure Criteria: Yes Elective The surgeon/proceduralist and patient have discussed in detail the risk of exposure to and/or potential harm posed by the COVID-19 virus with having a surgery/procedure at this time versus the risk of delaying the surgery/procedure. It is not possible to know either the risk of delaying the surgery or procedure or chance of getting an infection with perfect accuracy, but a joint decision was made between the patient and the surgeon/proceduralist to proceed at this time with the scheduled surgery/procedure as indicated on the consent form. Assessment and Plan Assessment and Plan (1) Hemorrhoid: Status: Resolved Qualifiers: Hemorrhoid type: fourth degree Qualified Code(s): K64.3 - Fourth degree hemorrhoids Orders: Orders: Basic Metabolic Profile (BMP) Today CBC-Complete Blood Cnt No Diff Today HH, Hemoglobin & Hematocrit 09/11/20 Plan - Elizabet HERRERA PAMendyC: Dr. Gonzalez will plan to perform a hemorrhoidectomy. Procedure details, risks and benefits have been reviewed. Patient will perform a 1 day clear liquid diet and drink 1 bottle of mag citrate the day prior to the procedure. She will also have a DVT study 1 week prior to the procedure. I will order a CBC today to evaluate her Hgb. Patient has had the opportunity to ask and have questions answered. Patient verbally understands and agrees with the plan. Coding Level of Care Code No Charge Diagnoses Hemorrhoid K64.3 Hemorrhoid type: fourth degree I have re-examined the patient. There are no clinical changes since date of exam. Rashid Gonzalez M.D., F.A.C.S.
--- NOTE | 2020-09-18 07:16 | EX.PCM.DISCH ---
Discharge Instructions Procedure General Surgery Diet Discharge Diet: Light diet - advance as tolerated (if you have questions about your diet instructions, please talk to you doctor.) Activity Discharge Activity: May Not Drive (for 3-5 days or while taking narcotic pain medicine.) May shower in (days): 1 Lifting Restrictions: 10 pounds Dressing / Incision Call your doctor if your incision/area has: Continuous Slow Oozing, Sudden Increased Bleeding, Increased Pain/ Swelling, Increased Redness and Foul Smelling Discharge Call your doctor if you observe: Fever of 101 or Higher Suture Line Care: Avoid Pulling/Pushing and Avoid Pinching/Bending Additional Dressing/Incision Instructions:: Please take daily fiber supplementation in the form of Metamucil or Citrucel or FiberCon or Benefiber or generic. 1 tablespoon in juice or food daily. Utilize mineral oil 30 cc or 1 ounce in juice or food daily for 5 days Utilize sitz baths in warm soapy water as needed for hygiene and comfort Contact the office [phone] for surgical follow-up in approximately 3 weeks You may use the provided tube of dibucaine ointment every 2 hours as needed for comfort applied to the area Follow Up Care Please Follow Up With: Rashid Gonzalez MD Test Results: Test results from this visit will be discussed in further detail at your follow-up appointment, if applicable. Discharge Plan Admission Attending Provider: Rashid Gonzalez Primary Care Provider: Morena Marion Discharge Orders/Prescriptions Prescriptions: No Action levothyroxine 100 mcg tablet 100 mcg PO DAILY RF: 0 hydroxychloroquine [Plaquenil] 200 mg tablet 200 mg PO BID RF: 0 magnesium 200 MG tablet 400 mg PO DAILY RF: 0 tramadol 50 MG tablet 50 mg PO DAILY PRN PRN (Reason: Pain 1-10 Or Fever) RF: 0 acetaminophen 650 MG tablet extended release 650 mg PO BID RF: 0 ergocalciferol (vitamin D2) 50,000 UNIT capsule 50,000 unit PO GAVIN RF: 0 vitamin N78-warok acid 1 EACH tablet 1 ea PO GAVIN RF: 0 furosemide 40 mg tablet 40 mg PO DAILY PRN PRN (Reason: Edema) RF: 0 PreserVision AREDS-2 250-90-40-1 mg Capsule 1 tab PO BID RF: 0
--- NOTE | 2020-09-18 07:30 | HEM_PTH ---
PATIENT: CONCETTA DOOLEY LOC: [facility] U#:[id number] AGE/SX: 69/F ROOM: RE09/18/[address]: Dr. Rashid Gonzalez MD : 1950 BED: DIS: 09/18/2020 SPEC #: [id number] RECD: 09/18/20 10:16 STATUS: SHANE ZUNIGA #: [id number] SHAKIR: 09/18/20 07:[address]: Rashid Gonzalez DEPT: SURGICAL PATHOLOGY RECD BY: Anna Glover ENTERED: 09/18/20 10:50 SP TYPE: HEMORRHOID OTHR DR: Dr. Morena Marion, DO Tissues: HEMORRHOIDS Procedures: Surgery Specimen Level III HEADER OPERATION: Hemorrhoidectomy PRE-OP DIAGNOSIS: Hemorrhoid TISSUE SUBMITTED: Hemorrhoids MICROSCOPIC DIAGNOSIS Hemorrhoid, hemorrhoidectomy: Pieces of anorectal mucosa with dilated and congested blood vessels, consistent with hemorrhoids with focal area of thrombosis and organization. MIGDALIA:lilia 09/19/2020 MICROSCOPIC DESCRIPTION Slides are reviewed. GROSS DESCRIPTION Received in fixative is one container labeled with the patient's name and designated hemorrhoid. The specimen consists of three variable sized pieces of troy mucosal tissue that in aggregate measure 5 x 4 x 2 cm. Sections reveal congested and hemorrhagic cut surfaces. Data Processing Control Clerk sections from all three pieces are submitted in two cassettes. / MIGDALIA:lilia 09/18/20 TC:5 CPT: 72108
[2020-09-18] MEDS: Lubricating Jelly 60 GM Tube 30 GM TOPICAL (07:50)
[2020-09-18] MEDS: Dibucaine 30 GM Tube 1 APPLIC (08:03)
[2020-09-18] MEDS: BUPIVACAINE LIPOSOME/PF 20 ML VIAL OPERA.SITE (08:39)
[2020-09-18] MEDS: Bupivacaine Mpf 0.5% 30 ML VIAL (08:40)
--- NOTE | 2020-09-18 08:41 | PCM.OPRPT ---
Problems Associated Problem List Diagnoses (1) Hemorrhoid: Report of Operation Date of Procedure: 09/18/20 Pre-Operative Diagnosis: Bleeding internal and external hemorrhoids Post-Operative Diagnosis: Same Surgery/Procedure Performed:: Extensive hemorrhoidectomy Description of Surgical Findings:: Timeout and informed consent was obtained. 69-year-old female was taken to the operating underwent general endotracheal intubation esthesia placed prone with care for shoulder and pelvic protection. Clindamycin 900 mg were given intravenously. The buttock area was carefully taped for exposure. The perianal was prepped with Betadine. The patient had a large conformer hemorrhoidal bulky tissue that I was actually bleeding at this time. Left lateral right anterior lateral right posterior lateral apical sutures of 2-0 chromic were placed. Additional securing sutures apically of 0 Vicryl were placed. Scalpel excision onto the skin was used to excise the external component. Harmonic scalpel was used to transect and secure the vasculature. The sphincter mechanism was identified and carefully protected. 3 significant wedges of hemorrhoidal tissue was excised. Dramatic change in the appearance. The tissue was approximated with running locking 2-0 chromic. At the completion. It was anesthetized with 50 cc of 20 cc Exparel mixed with 30 cc of 0.5% Marcaine. Then dibucaine ointment flow on Gelfoam which was inserted. Sponge and instrument and needle counts were reported to certainly be correct. Blood loss was minimal. Drains none. Blood loss minimal. Specimen internal/external hemorrhoids. She was taken to the recovery area in satisfactory addition without apparent complication Rashid Gonzalez M.D., F.A.C.S. Surgeon: Rashid Gonzalez Anesthesiologist: Gini Rivera
[2020-09-18 10:16] LABS: Bedside Glucose 172 mg/dL (70-110)
[2020-09-18] MEDS: traMADol 50 MG Tablet PO (10:58)
[2020-09-18] MEDS: Acetaminophen 325 MG Tablet 650 MG PO (10:58)
[2020-09-18] MEDS: BENZOCAINE/MENTHOL 1 LOZENGE MUCOUS MEM (11:25)
--- NOTE | 2020-09-18 11:35 | SUR.PHASEII ---
C/O SORE THROAT FROM REPORTED DIFFICULT INTUBATION. BOTH BE RICCI AND KAVITHA AWARE, WAS REEVALUATED BY DR GUDINO WHO INSTRUCTED TO USE CEPACOL LOZENGES.
== END 2020-09-18 11:54 ==
LOC: SDC 06:05 → AC 06:05
PROVIDERS: PCP Family Medicine; Referring Provider Surgery; Visit Provider Surgery
PROC: (CPT 46260; principal; 2020-09-18 07:15)
DX: K64.3 Fourth degree hemorrhoids (principal); K64.5 Perianal venous thrombosis; K64.4 Residual hemorrhoidal skin tags; K62.5 Hemorrhage of anus and rectum; E11.40 Type 2 diabetes mellitus with diabetic neuropathy, unspecified; E03.9 Hypothyroidism, unspecified; L40.50 Arthropathic psoriasis, unspecified; M19.90 Unspecified osteoarthritis, unspecified site; G47.30 Sleep apnea, unspecified; E66.9 Obesity, unspecified; Z78.0 Asymptomatic menopausal state; Z79.01 Long term (current) use of anticoagulants; Z79.890 Hormone replacement therapy; Z79.899 Other long term (current) drug therapy; Z86.73 Personal history of transient ischemic attack (TIA), and cerebral infarction without residual deficits; Z86.711 Personal history of pulmonary embolism; Z86.718 Personal history of other venous thrombosis and embolism
CPT/HCPCS: 46260; 36415; 80048; 82962; 85027; 88304; 93005; J7120; J2405

== ENCOUNTER 2020-11-07 16:30 | Outpatient (RCR) | payer MEDICARE, OTHER, SELFPAY ==
--- NOTE | 2020-10-30 10:42 | HP.PTEVAL_ITS ---
Patient's Visit Information CONCETTA DOOLEY is a 69 year old F referred to Physical Therapy by NOEL MALHOTRA with a diagnosis of vertigo. Date of Evaluation: 10/30/20 Physical Therapist: Vincenzo Jensen, SARIKA, OCS, CSCS - Visit Plan Frequency: 1x/Week Duration: 2-4 Weeks Plan: weekly as needed x 2-4 for. positioinal checkand treats. - Subjective Has been dizzy for a couple months. mainly gets dizzy turning L to R in bed o9r sitting up. It lasts less than 15 seconds. Feels pretty normal in between episodes. Has not done much the last 9 months or so. Will see [facility] therapy for back tomorrow. No falls, no stumbles due to spinning, just clumsy at times. Sleep is OK. Activities are pretty normal at home. 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 Was seeing Karin for check up on enemia and they sent her for vertigo. - Objective Walks normally and safely into PT. Cervical aROM WFL and without pain today. - L hallpike angelito. + r hallpike angelito up torsional 12 second duration, treated with ysabel and then - HD. UE AROM WFL and strength 3+/5. - Balance/Special Test Scores Functional Gait Assessment Score: 28 % Disability: 6.6700 Dizziness Score: 12 - Goals Goal 1:: Abolish vertigo rollingat night and sitting up. Goal Time Frame: 2-4 Weeks Goal 2:: Pt feel back to normal with activity and no dizzyness. Goal Time Frame: 2-4 Weeks - Rehabilitation Potential Physical Therapy Diagnosis: BPPV Rehabilitation Potential: Good - Anticipated Interventions Patient/Client Instruction: Educate patient on: Condition, Plan of Care For the Purpose of:: To increase tolerance to activity/condition/position Comment: positional treatments as needed. For the Purpose of:: To increase tolerance to activity/condition/position Thank you for the opportunity to evaluate your patient. For Medicare and Medicare HMO plans, please review the plan of care and approve it. It will need to be FAXED BACK to us at [phone] for Medicare purposes. For Medicare only, by signing this I certify the plan of care. Please let me know if there are questions or concerns regarding this plan of care. Physician Signature: Date:
--- NOTE | 2020-11-07 16:42 | HP.PTDCSUM ---
It has been my pleasure to treat CONCETTA DOOLEY referred by NOEL MALHOTRA, with the diagnosis of vertigo for a total of 2 visit(s). Discharge Date: 11/07/20 Please see the following information for a summary of their discharge status. Subjective: Haven't had anymore trouble lately. Activites normal. Rolling in bed OK. Bending Ok. To doctor in a couple weeks. % Improvement: 100 Objective/Function: - B hallpike angelito. - roll test. FGA same Goal 1:: Abolish vertigo rollingat night and sitting up. Goal Progress: Goal Met Goal 2:: Pt feel back to normal with activity and no dizzyness. Goal Progress: Goal Met Plan: d/c If there are questions or concerns regarding this patient's physical therapy, please feel free to call me at [phone]. Thank you for the referral of this patient. Sincerely, Vincenzo Jensen, DPT, OCS, CSCS Balance/Gait/Functional tests - Balance/Special Test Scores Functional Gait Assessment Score: 28 % Disability: 6.6700 Dizziness Score: 0
== END 2020-11-07 19:00 | disposition home or self-care (01) ==
LOC: PT 16:30
PROVIDERS: PCP Family Medicine
DX: R42 Dizziness and giddiness (principal)
CPT/HCPCS: 97161; 97530

== ENCOUNTER → 2020-12-17 17:30 | Outpatient (CLI) | payer MEDICARE, OTHER, SELFPAY ==
--- NOTE | 2020-12-17 17:50 | CT_ITS ---
STUDY: CT CHEST WITHOUT CONTRAST REASON FOR EXAM: Female, 70 years old. PULMONARY NODULE RADIATION DOSAGE (If Supplied By Facility): CTDIvol = ( 19.86 ) mGy, DLP = ( 774.14 ) mGycm TECHNIQUE: Transaxial imaging was performed without the administration of intravenous contrast material. Individualized dose optimization techniques were used for this CT. COMPARISON: 06/19/2020 FINDINGS: There is no change in the 3 mm noncalcified nodule in the inferior right upper lobe with lungs near the minor fissure likely consistent with a scar. This is also unchanged dating back to a CT from 12/27/2013 consistent with a benign etiology and requires no further follow-up. Linear densities in the lung bases consistent with scarring. No new noncalcified nodule or mass. There is no demonstrated pleural abnormality. Normal heart and pericardium. Normal mediastinum. Normal hilar regions. Normal unenhanced pulmonary arteries. Normal aorta arch and descending thoracic aorta. Normal osseous structures. Diffusely decreased attenuation of the hepatic parenchyma consistent with fatty infiltration. CT/Chest without Contrast IMPRESSION: Bilateral scarring including the 3 mm nodular density in the inferior right upper lobe. This requires no further follow-up. Fatty infiltration of the liver. Electronically Signed: Abdon Cuevas MD at 11:57 EDT Tel , Service support ,
== END ==
PROVIDERS: PCP Family Medicine; Visit Provider Family Medicine
DX: R91.1 Solitary pulmonary nodule (principal)
CPT/HCPCS: 71250

== ENCOUNTER → 2021-02-13 08:18 | Outpatient (CLI) | payer MEDICARE, OTHER, SELFPAY ==
--- NOTE | 2021-02-13 08:25 | BD_ITS ---
STUDY: DUAL ENERGY X-RAY ABSORPTIOMETRY / DXA REASON FOR EXAM: Female, 70 years old. M85.89. The patient is postmenopausal. TECHNIQUE: Bone Mineral Density (BMD) measurements of lumbar spine and bilateral hips were obtained. COMPARISON: Comparison is made with prior study dated 03/04/2017. FINDINGS: Lumbar Spine (L1-L4): g/cm2 (1.331) / T-score (2.5) / Z-score (4.7) Findings are suggestive of normal bone density with a low fracture risk. Left Femur Total: g/cm2 (0.913) / T-score (-0.2) / Z-score (1.3) Left Femoral Neck: g/cm2 (0.742) / T-score (-1.0) / Z-score (0.8) Right Femur Total: g/cm2 (0.966) / T-score (0.2) / Z-score (1.7) Right Femoral Neck: g/cm2 (0.666) / T-score (-1.7) / Z-score (0.2) The T-Scores on the most recent prior examination were: Lumbar Spine (L1-L4): There has been improvement of bone density since the previous examination. Left Femur Total: which represents a worsening of 6.4%. Right Femur Total: which represents an improvement of 3.9%. BD/Dexa Bone Density Study IMPRESSION: The patient is considered osteopenic as outlined below according to World Andre Organization (WHO) criteria with a moderate fracture risk. There has been improvement of bone density since the previous examination. Reference Information: The T-score is the number of standard deviations above or below the standard which is normal for young adults at their peak bone mineral density. The World Health Organization (WHO) interprets the T-scores as follows: Above -1 Normal bone density Between -1 and -2.5 Osteopenia Equal to / or below -2.5 Osteoporosis As a practical clinical guideline, osteopenia may be graded as follows: Mild -1 through -1.5 Moderate -1.6 through -2.0 Severe -2.1 through -2.4 The Z-score is the number of standard deviations above or below age-matched controls. A Z-score of less than -1.5 would be considered abnormal. References: 1. NIH Osteoporosis and Related Bone Diseases www osteo.org 2. International Society for Clinical Densitometry www iscd.org 3. National Osteoporosis Foundation www nof.org Electronically Signed: Jarret Kennedy MD at 9:04 EST , Service support ,
== END ==
PROVIDERS: PCP Family Medicine; Referring Provider Internal Medicine Endocrinology, Diabetes & Metabolism; Visit Provider Internal Medicine Endocrinology, Diabetes & Metabolism
DX: M89.9 Disorder of bone, unspecified (principal); M94.9 Disorder of cartilage, unspecified; Z78.0 Asymptomatic menopausal state
CPT/HCPCS: 77080

== ENCOUNTER → 2021-06-03 | Outpatient (CLI) | payer MEDICARE, OTHER, SELFPAY ==
[2021-06-03 10:53] LABS: CRP 5.47 mg/L (0.0-3.0); LDH 303 U/L (84-246)
[2021-06-03 11:13] LABS: Erythrocyte Sedimentation Rate 14 mm/hr (0-30)
[2021-06-04 15:08] LABS: Anti-Centromere B Ab <0.2 AI (0.0-0.9); Anti-Chromatin <0.2 AI (0.0-0.9); Anti-Jo <0.2 AI (0.0-0.9); Anti-Scleroderma-70 AB <0.2 AI (0.0-0.9); RNP Ab 0.4 AI (0.0-0.9); SJOGREN'S Anti-SS-A test < 0.2 AI (0.0-0.9); SJOGREN'S Anti-SS-B test < 0.2 AI (0.0-0.9); Smith Ab <0.2 AI (0.0-0.9)
[2021-06-04 15:31] LABS: Anti-Mitochondrial AB <20.0 Units (0.0-20.0); Anti-dsDNA Ab <1 IU/mL (0-9)
[2021-06-06 15:57] LABS: Calprotectin, Stool 25 ug/g (0-120); Fats, Neutral Normal (.); Fats, Total Normal (.)
[2021-06-07 05:07] LABS: Angiotensin Convert Enzyme 30 U/L (14-82); Cytoplasmic Ab (C-ANCA) <1:20 titer (Neg:<1:20); Endomysial Antibody IgA Negative (Negative); Immunoglobulin A 153 mg/dL (87-352); Immunoglobulin E < 2 IU/mL (6-495); Immunoglobulin G 580 mg/dL (586-1602)
[2021-06-07 11:24] LABS: AFP, Tumor Marker 3.2 ng/mL (0.0-9.2); Anti-Smooth Muscle ABS 6 Units (0-19); Carbohydrate AG 19-9 16 U/mL (0-35); Immunoglobulin M 19 mg/dL (26-217); Perinuclear Ab (P-ANCA) <1:20 titer (Neg:<1:20); t-Transglutaminase IgA <2 U/mL (0-3)
== END | disposition home or self-care (01) ==
PROVIDERS: PCP Family Medicine; Referring Provider Internal Medicine Gastroenterology; Visit Provider Internal Medicine Gastroenterology
DX: K76.9 Liver disease, unspecified (principal); R19.7 Diarrhea, unspecified
CPT/HCPCS: 36415; 82105; 82164; 82378; 82705; 82784; 82785; 83516; 83615; 83993; 85652; 86140; 86225; 86235; 86255; 86256; 86301; 87177; 87209; 87329; 87493; 87506

== ENCOUNTER → 2021-07-09 | Outpatient (CLI) | payer MEDICARE, OTHER, SELFPAY ==
[2021-07-09 10:47] LABS: Erythrocyte Sedimentation Rate 8 mm/hr (0-30)
[2021-07-09 10:50] LABS: Absolute Lymphocyte Count 0.91 X10^3/uL (0.83-4.51); Absolute Neutrophil Count 3.4 X10^3/uL (2.0-7.7); Basophil# 0.07 X10^3/uL; Basophil% 1.3 % (0-1); Eosinophil# 0.17 X10^3/uL; Eosinophils% 3.2 % (0-5); Hematocrit 48.4 % (37-47); Hemoglobin 15.4 g/dL (12.0-15.0); Lymphocyte # 0.91 X10^3/ul (0.83-4.51); Lymphocyte % 17.2 % (19-41); Mean Corp Hgb Conc 31.8 g/dL (32-36); Mean Corpuscular Hgb 27.8 pg (27.0-32.0); Mean Corpuscular Volume 87.5 fL (81-99); Mean Platelet Vol. 10.6 fl (6.2-12.0); Monocyte# 0.63 X10^3/uL; Monocyte% 11.9 % (0-10); NRBC Flagged by Analyzer 0 % (0-5); Neutrophil # 3.44 X10^3/uL (2.7-7.7); Neutrophil % 65.3 % (47-70); Platelet Count 199 K/mm3 (150-450); RBC Distribution Width CV 14.4 % (11.6-14.6); RBC Distribution Width SD 46.2 fl (35.1-43.9); Red Blood Count 5.53 M/mm3 (4.2-5.4); White Blood Count 5.3 K/mm3 (4.4-11.0)
[2021-07-09 11:01] LABS: Cholesterol 251 mg/dL (200); High Density Lipoprotein 56 mg/dL; Thyroid Stim Hormone (TSH) 2.68 uIU/mL (0.358-3.74); Triglycerides 303 mg/dL; Very Low Density Lipoprotein 61 mg/dL (5-40)
[2021-07-09 11:02] LABS: AST(SGOT) 36 U/L (15-37); Alanine Aminotransfer ALT/SGPT 54 U/L (13-56); CRP 6.35 mg/L (0.0-3.0); Creatinine, Serum 0.88 mg/dL (0.55-1.02); EST Glomerular Filtration Rate 67 mL/min (>60); Est Glom Filt Rate - Afr Amer 81 mL/min (>60)
== END | disposition home or self-care (01) ==
LOC: MTLAB 07:14
PROVIDERS: PCP Family Medicine; Referring Provider Internal Medicine Endocrinology, Diabetes & Metabolism; Visit Provider Internal Medicine Endocrinology, Diabetes & Metabolism
DX: E78.5 Hyperlipidemia, unspecified (principal); E03.9 Hypothyroidism, unspecified; Z79.899 Other long term (current) drug therapy
CPT/HCPCS: 36415; 80061; 82565; 84439; 84443; 84450; 84460; 85025; 85652; 86140

== ENCOUNTER → 2021-09-12 | Outpatient (CLI) | payer MEDICARE, OTHER, SELFPAY ==
[2021-09-12 12:06] LABS: Erythrocyte Sedimentation Rate 13 mm/hr (0-30)
[2021-09-12 12:07] LABS: Absolute Lymphocyte Count 1.06 X10^3/uL (0.83-4.51); Absolute Neutrophil Count 3.3 X10^3/uL (2.0-7.7); Basophil# 0.09 X10^3/uL; Basophil% 1.6 % (0-1); Eosinophil# 0.24 X10^3/uL; Eosinophils% 4.4 % (0-5); Hematocrit 46.7 % (37-47); Hemoglobin 14.7 g/dL (12.0-15.0); Lymphocyte # 1.06 X10^3/ul (0.83-4.51); Lymphocyte % 19.4 % (19-41); Mean Corp Hgb Conc 31.5 g/dL (32-36); Mean Corpuscular Hgb 27.6 pg (27.0-32.0); Mean Corpuscular Volume 87.8 fL (81-99); Mean Platelet Vol. 10.1 fl (6.2-12.0); Monocyte# 0.69 X10^3/uL; Monocyte% 12.6 % (0-10); NRBC Flagged by Analyzer 0 % (0-5); Neutrophil # 3.34 X10^3/uL (2.7-7.7); Neutrophil % 61.1 % (47-70); Platelet Count 202 K/mm3 (150-450); RBC Distribution Width CV 14.6 % (11.6-14.6); RBC Distribution Width SD 46.7 fl (35.1-43.9); Red Blood Count 5.32 M/mm3 (4.2-5.4); White Blood Count 5.5 K/mm3 (4.4-11.0)
[2021-09-12 12:41] LABS: AST(SGOT) 31 U/L (15-37); Alanine Aminotransfer ALT/SGPT 39 U/L (13-56); CRP 5.46 mg/L (0.0-3.0); EST Glomerular Filtration Rate 66 mL/min (>60); Est Glom Filt Rate - Afr Amer 79 mL/min (>60)
== END | disposition home or self-care (01) ==
PROVIDERS: PCP Family Medicine
DX: Z79.899 Other long term (current) drug therapy (principal)
CPT/HCPCS: 36415; 82565; 84450; 84460; 85025; 85652; 86140

== ENCOUNTER → 2021-10-22 | Outpatient (CLI) | payer MEDICARE, OTHER, SELFPAY ==
--- NOTE | 2021-10-22 07:23 | CT_ITS ---
STUDY: CT ABDOMEN AND PELVIS WITH AND WITHOUT CONTRAST REASON FOR EXAM: Female, 70 years old. Pancreatic protocol RADIATION DOSAGE (If Supplied By Facility): CTDIvol = ( 23.63 ) mGy, DLP = ( 3448.38 ) mGycm TECHNIQUE: Transaxial images were obtained from the dome of the diaphragm to the symphysis pubis without oral contrast. Oral and amp; IV Readi-CAT and amp; 100mL Isovue-300 was administered. Sagittal and coronal images were reconstructed. Individualized dose optimization techniques were used for this CT. COMPARISON: 04/15/2020, MRI dated 05/07/[address] of the chest dated 12/17/2020 FINDINGS: There is minimal left basilar atelectasis and/or scarring. There are coronary artery calcifications. There is circumferential wall thickening of the distal esophagus. There is decreased attenuation of the liver consistent with steatosis. There is a stable 1.4 cm hypodense round focus within the right hepatic lobe which may be secondary to focal fat. The gallbladder is surgically absent. Normal spleen. The pancreas stable. There is a focus of intercalated fat within the pancreatic head. No pancreatic atrophy nor discrete solid mass is visualized. Normal bilateral adrenal glands. There are stable too small to characterize low-attenuation foci within the kidneys which may reflect cysts. There is a small hiatal hernia. There is a duodenal diverticulum. There are a few scattered diverticula arising from the colon. The appendix is surgically absent. There is diffuse atherosclerotic calcification of the abdominal aorta, without a demonstrated aneurysm. Normal inferior vena cava. Normal retroperitoneum. Normal urinary bladder. Normal abdominal wall. There are diffuse degenerative changes of the visualized lumbar spine. CT/CT Abd/Pelvis W/WO Contrast IMPRESSION: Fatty infiltration of the liver. Circumferential wall thickening of the distal esophagus, may be secondary to esophagitis. Atherosclerosis. Colonic diverticulosis. Electronically Signed: Shadia Arias MD at 8:32 EDT ,
[2021-10-22 07:51] LABS: CREATININE FINGERSTICK < 0.9 mg/dL (0.55-1.02); EGFR FINGERSTICK > 60.0000 mL/min (>60)
== END | disposition home or self-care (01) ==
LOC: CT 07:23
PROVIDERS: PCP Family Medicine; Referring Provider Internal Medicine Gastroenterology; Visit Provider Internal Medicine Gastroenterology
DX: R19.7 Diarrhea, unspecified (principal)
CPT/HCPCS: 74178; Q9967

== ENCOUNTER → 2021-10-31 | Outpatient (CLI) | payer MEDICARE, OTHER, SELFPAY ==
--- NOTE | 2021-10-31 06:39 | MRI_ITS ---
STUDY: MRI CERVICAL SPINE WITHOUT CONTRAST REASON FOR EXAM: Female, 70 years old. NECK PAIN WITH RADICULAR SYMPTOMS DOWN RIGHT ARM AND PARATHESIS IN FINGERS TECHNIQUE: Standardized fat and water weighted pulse sequences were obtained in the sagittal and axial planes. COMPARISON: MR cervical spine 11/28/2018. FINDINGS: Normal foramen magnum and brainstem-cervical cord junction. Normal craniovertebral junction. Normal anterior atlantoaxial articulation. Normal odontoid process. Normal cervical lordosis. Normal vertebral bodies and posterior osseous elements. C2-3: Normal endplates. Normal disc height, signal and morphology. Normal central canal and intervertebral neural foramina. C3-4: Normal endplates. Normal disc height, signal and morphology. Normal central canal and intervertebral neural foramina. C4-5: Normal endplates. Normal disc height, signal and morphology. Normal central canal and moderate narrowing right intervertebral neural foramina. C5-6: Normal endplates. Normal disc height, signal and morphology. Normal central canal and uncinate spondylosis and moderate bilateral narrowing intervertebral neural foramina. C6-7: Normal endplates. Normal disc height, signal and morphology. Normal central canal and severe narrowing right greater than left intervertebral neural foramina. C7-T1: Normal endplates. Normal disc height, signal and morphology. Normal central canal and intervertebral neural foramina. Normal cervical cord. Normal visualized soft tissue structures. MRI/Spine Cervical (Routine) IMPRESSION: New right greater than left neural foraminal narrowing C6-7. Multilevel neural foraminal narrowing otherwise essentially unchanged. Electronically Signed: Jonny Posey MD at 0:01 EDT ,
== END | disposition home or self-care (01) ==
LOC: MRI 06:35
PROVIDERS: PCP Family Medicine
DX: M54.2 Cervicalgia (principal)
CPT/HCPCS: 72141

== ENCOUNTER → 2021-12-10 | Outpatient (CLI) | payer MEDICARE, OTHER, SELFPAY ==
--- NOTE | 2021-12-10 15:11 | BI_ITS ---
MAMMOGRAPHY - BILATERAL SCREENING REASON FOR EXAM: Female, 71 years old. Routine annual screening examination. PERTINENT HISTORY: Non-contributory. Remote bilateral stereotactic breast biopsies. TECHNIQUE: Digital bilateral breast rocio (3D mammographic acquisition) in the CC and MLO projections. 2-D mediolateral oblique (MLO) and craniocaudad (CC) views of both breasts were obtained. CAD: Full Field Digital Mammography with Computer Added Detection was performed. COMPARISON: Comparison is made with prior study dated 06/12/2020 and 05/05/2019. FINDINGS: Breast Composition: The breasts are heterogeneously dense, which may obscure small masses. There are no dominant masses or suspicious calcifications. Once again, 2 tissue markers are seen in the retroareolar region of the breasts. No other significant abnormalities are identified. There has been no significant change since the prior study. BI/SCRN MAMM (CAD)W/ROCIO BILAT IMPRESSION: Stable bilateral screening mammogram. Yearly follow-up mammogram recommended. (A) ASSESSMENT CATEGORY: BIRADS Category 2: Benign. A letter regarding these results will be sent to the patient by the facility within 30 days. Approximately 10% of breast cancers are not detected by mammography. A normal mammogram should not delay biopsy of a clinically suspicious abnormality. [id number] Electronically Signed: Jarret Kennedy MD at 8:39 EDT ,
== END | disposition home or self-care (01) ==
LOC: OPBD 15:09
PROVIDERS: PCP Family Medicine; Visit Provider Student in an Organized Health Care Education/Training Program
DX: Z12.31 Encounter for screening mammogram for malignant neoplasm of breast (principal)
CPT/HCPCS: 77063; 77067

== ENCOUNTER → 2022-01-20 | Outpatient (CLI) | payer MEDICARE, OTHER, SELFPAY ==
--- NOTE | 2022-01-20 14:20 | EMB_PTH ---
PATIENT: CONCETTA DOOLEY LOC: [facility] #:[id number] AGE/SX: 71/F ROOM: RE01/20/[address]: Dr. Lupe Sainz DO : 1950 BED: DIS: 01/20/2022 SPEC #: [id number] RECD: 01/20/22 14:59 STATUS: SHANE REBrittni #: [id number] SHAKIR: 01/20/22 14:[address]: Lupe Sainz DEPT: SURGICAL PATHOLOGY RECD BY: Maru Reeves ENTERED: 01/21/22 07:46 SP TYPE: ENDOM BX/C KATHY DR: Dr. Morena Marion DO Tissues: Endometrium, NOS Procedures: Surgery Specimen Level IV HEADER OPERATION: Endometrial biopsy PRE-OP DIAGNOSIS: Abnormal uterine bleeding TISSUE SUBMITTED: Endometrial biopsy MICROSCOPIC DIAGNOSIS Endometrial biopsy: Strips of benign endometrial epithelium, consistent with atrophic endometrium. Fragments of benign ecto- and endocervical epithelium and mucous. See comment. MIGDALIA:lilia 01/22/2022 COMMENT Clinical correlation and appropriate follow up are necessary. MICROSCOPIC DESCRIPTION Slides are reviewed. GROSS DESCRIPTION Received in fixative is one container labeled with the patient's name and designated endometrial biopsy. The specimen consists of multiple irregular fragments of troy mucoid tissue that in aggregate measure 1 x 0.5 x 0.1 cm. The specimen is totally submitted in one cassette. / MIGDALIA:lilia 01/21/2022 TC:4 CPT: 68989
== END | disposition home or self-care (01) ==
LOC: LABSPEC 14:47
PROVIDERS: PCP Family Medicine; Visit Provider Student in an Organized Health Care Education/Training Program
DX: N93.9 Abnormal uterine and vaginal bleeding, unspecified (principal)
CPT/HCPCS: 88305

== ENCOUNTER 2022-03-27 15:00 | Outpatient (RCR) | payer MEDICARE, OTHER, SELFPAY ==
--- NOTE | 2022-01-29 13:57 | HP.PTEVAL_ITS ---
Patient's Visit Information CONCETTA DOOLEY is a 71 year old F referred to Physical Therapy by ASIA RASHID with a diagnosis of Spinal stenosis. Date of Evaluation: 01/29/22 Physical Therapist: Vincenzo Jensen, GRACIAT, OCS, CSCS - Visit Plan Frequency: 3x /Week Duration: 4-6 Weeks Plan: 3x/week for 4-6 weeks for surgery prep... please ensure LB ROM into flexion, LB stretches, rollout and teach stretch for quads/psoas, teach strength of core on mat to HEP and then general strength that patient can eventually do at home with pics. - Subjective Has chronic back issues. Neuroapthy and stiffness in legs is worsening. Activities declining in last coupkle months. Had incontinence and was sent to a neurosurgeon. She will have surgery for this April 20 and will go to rehab. Wants her to strengthen prior. Will see doctor for ipedural on 02/20/22. She is in pain if she stands more than 15 minutes, pain and pressure in LB. has consistent heavyness and neuropathy in LE and feels like they are in cement blocks. Catscan scheduled to make final arranegments for surgery. Sleep is not great due to this, shooting pains can keep her up 10/10. takes tramadol often to sleep. 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 Basic ADLs are happening but slow and stiff and struggles to get shoes and support stockings on. Hobbies include knit and irais and can do but not comfortably. Lives alone but family close by. Steps require railing due to neuroapthy/balance. Has prolapse and intermittent fecal and urinary incontinence. Just not to bathroom quick enough but knows when she needs to go. - Pain LB Pain Intensity (Out of 10): 0 Pain Intensity Range: 0, 8 Comment: standing only, numbness stiffness in legs is constant in legs. - Objective Walks with short step length adn stiff, slightly neuropathic avoiding pushoff but I and safe. steps with rail reciprocally. Trasnfers are I chair and I bed but weakness in core makes bed trasnfer hard. LB AROM extension mod limited and painful centrally, SB max limited B, flexion max limited. Very little movement from lower lumbar area. No tenderness in parapsinals or posterior hips but feels very tight. - SLR, - Slump. reflexes 0/3 patella and achilles B. sensation from knees down is dull and stiff. has compression garments on and diminshed pulse pedally. Strength ankles 4/5, knees 4-/5 B ext adn flexion. hip abd and extension 3/5, flexion 3+. core strength 3- abs and 3 extensors. Very little pelvic motion available but can PPT. - Balance/Special Test Scores Functional Gait Assessment Score: 28 % Disability: 6.6700 Oswestry Low Back Score: 23 - Goals Goal 1:: PPT and LB AROM improved by painfree. so patient can put compression garments on easily. Goal Time Frame: 4-6 Weeks Goal 2:: I approp core and general strengthi via HEP to prepare for surgery. Goal Time Frame: 4-6 Weeks Goal 3:: Steps wihtout rail I up and down Goal 4:: walk across home without SOB Goal Time Frame: 6-8 Weeks Goal 5:: Sleep without waking at night due to pain Goal Time Frame: 4-6 Weeks - Rehabilitation Potential Physical Therapy Diagnosis: Spinal stenosis and degen in lumbar area leading to deconditioning and pain. Rehabilitation Potential: Fair - Anticipated Interventions Patient/Client Instruction: Educate patient on: Condition, Plan of Care For the Purpose of:: To decrease pain, To increase ROM, To improve muscle performance and motor function, To increase tolerance to activity/condition/position, To improve performance and independence with ADL's, To improve ability of physical actions for home/community/work/leisure, To improve gait and locomotor functions Therapeutic Exercise to Include: Strength training, Postural training, Flexibilty training, Passive ROM, Active ROM, Dynamic Lumbar Stabilization For the Purpose of:: To decrease pain, To increase ROM, To improve nutrient delivery to tissue, To improve muscle performance and motor function, To improve ability to perform ADL's, To improve ability of physical actions for home/community/work/leisure, To improve gait and locomotor functions Manual Therapy Techniques to Include: Mobilization, Passive ROM, Soft tissue mobilization For the Purpose of:: To decrease pain, To increase ROM Thank you for the opportunity to evaluate your patient. For Medicare and Medicare HMO plans, please review the plan of care and approve it. It will need to be FAXED BACK to us at [phone] for Medicare purposes. For Medicare only, by signing this I certify the plan of care. Please let me know if there are questions or concerns regarding this plan of care. Physician Signature: Date:
--- NOTE | 2022-02-27 09:48 | HP.PTREVAL_ITS ---
ASIA RASHID, It has been my pleasure to treat CONCETTA DOOLEY over the last 13 visits for Spinal stenosis. Please see the progress note below for an update on the physical therapy plan of care! Subjective: I can tell a big difference. Exercise really help. More stamina, Not feeling quite as weak. Pain is better. Can stand 15 minutes before pressure in LB forces sit but does not have to sit for long. Pain is not as intense. Has not had to take pain pills lately. Pain 4/10 and worse with standing, no pain pain at rest. Sleep is better, Normal 7-10 hours but not waking u p nearly as much. tolerated gym well. No problems with HEP either. Compression garments is easier but not easy Objective/Function: Lumbar segments still very tight in SB, flexion, painful with end range extension. Walking well and trasnferrring shair and bed without difficulty today. Steps require one rail for balance and R leg slightly weaker . Overall moving better and motivated to cotninue HEP and wants to learn gym for prior to and after surgery. Plan Plan: weekly x 4 weeks for gym based strength progressing to I when able. Pt to continue 5x ROM and stretching per week at home and 3x/week home strength. Balance/Gait/Functional tests - Balance/Special Test Scores Functional Gait Assessment Score: 28 % Disability: 6.6700 Oswestry Low Back Score: 14 Goals Goal 1:: PPT and LB AROM improved by painfree. so patient can put compression garments on easily. Goal Time Frame: 4-6 Weeks Goal Progress: extension hurts Goal 2:: I approp core and general strengthi via HEP to prepare for surgery. Goal Time Frame: 4-6 Weeks Goal Progress: Goal Met Goal 3:: Steps wihtout rail I up and down Goal Progress: needs rail Goal 4:: walk across home without SOB Goal Time Frame: 6-8 Weeks Goal Progress: sometimes, lung problems. Goal 5:: Sleep without waking at night due to pain Goal Time Frame: 4-6 Weeks Goal Progress: Progressing Goal 6:: I gym ex program for strengthening Goal Time Frame: 2-4 Weeks Goal Progress: NEW GOAL Anticipated Interventions Patient/Client Instruction: Educate patient on: Condition, Plan of Care For the Purpose of:: To decrease pain, To increase ROM, To improve muscle performance and motor function, To increase tolerance to activity/condition/position, To improve performance and independence with ADL's, To improve ability of physical actions for home/community/work/leisure, To improve gait and locomotor functions Therapeutic Exercise to Include: Strength training, Postural training, Flexibilty training, Passive ROM, Active ROM, Dynamic Lumbar Stabilization For the Purpose of:: To decrease pain, To increase ROM, To improve nutrient delivery to tissue, To improve muscle performance and motor function, To improve ability to perform ADL's, To improve ability of physical actions for home/commun ity/work/leisure, To improve gait and locomotor functions Manual Therapy Techniques to Include: Mobilization, Passive ROM, Soft tissue mobilization For the Purpose of:: To decrease pain, To increase ROM Please do not hesitate to contact me at [phone] by phone or if you have questions or concerns regarding this new plan of care! Sincerely, Vincenzo Jensen, DPT, OCS, CSCS
--- NOTE | 2022-03-27 15:40 | HP.PTDCSUM ---
It has been my pleasure to treat CONCETTA DOOLEY referred by ASIA RASHID, with the diagnosis of Spinal stenosis for a total of 17 visit(s). Discharge Date: 03/27/22 Please see the following information for a summary of their discharge status. 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 LB Pain Intensity (Out of 10): 0 % Improvement: 40 Objective/Function: did exercises with minimal set up cues today. Ho given. Pt wishes to continue on her own as a member vs more therapy and is appropriate for that. Goal 1:: PPT and LB AROM improved by painfree. so patient can put compression garments on easily. Goal Progress: extension hurts Goal 2:: I approp core and general strengthi via HEP to prepare for surgery. Goal Progress: Goal Met Goal 3:: Steps wihtout rail I up and down Goal Progress: needs rail Goal 4:: walk across home without SOB Goal Progress: Goal Met Goal 5:: Sleep without waking at night due to pain Goal Progress: Progressing Goal 6:: I gym ex program for strengthening Goal Progress: Goal Met Plan: d/c to gym ex adn HEP Discharge Comments: Pt to continue I in gym as member and at home. Will return when ordered after surgery. If there are questions or concerns regarding this patient's physical therapy, please feel free to call me at [phone]. Thank you for the referral of this patient. Sincerely, Vincenzo Jensen, DPT, OCS, CSCS Balance/Gait/Functional tests - Balance/Special Test Scores Functional Gait Assessment Score: 28 % Disability: 6.6700 Oswestry Low Back Score: 14
--- NOTE | 2022-05-26 11:01 | HP.PT.NRP ---
CONCETTA DOOLEY was seen in my office for initial evaluation on 01/29/22. The following Plan of Care was established for this patient: Initial Frequency: 3x /Week Initial Duration: 4-6 Weeks Patient/Client Instruction: Educate patient on: Condition, Plan of Care For the Purpose of:: To decrease pain, To increase ROM, To improve muscle performance and motor function, To increase tolerance to activity/condition/position, To improve performance and independence with ADL's, To improve ability of physical actions for home/community/work/leisure, To improve gait and locomotor functions Therapeutic Exercise to Include: Strength training, Postural training, Flexibilty training, Passive ROM, Active ROM, Dynamic Lumbar Stabilization For the Purpose of:: To decrease pain, To increase ROM, To improve nutrient delivery to tissue, To improve muscle performance and motor function, To improve ability to perform ADL's, To improve ability of physical actions for home/community/work/leisure, To improve gait and locomotor functions Manual Therapy Techniques to Include: Mobilization, Passive ROM, Soft tissue mobilization For the Purpose of:: To decrease pain, To increase ROM This patient was last seen in our office 03/27/22. Pertinent comments regarding their Physical therapy will appear below: Pt seen 17 visits of therapy to ready her for back surgery. She was doing well and I with program, was to call and f/u as needed. However, at this point, she has had the surgery and is being seen under different chart for post surgical rehab and I will discontinue this current chart. At this point I will be discontinuing this patient from physical therapy. I would be happy to see this patient again in the future if found appropriate by the physician. Thank you! Vincenzo Jensen, DPT, OCS, CSCS Balance/Gait/Functional tests - Balance/Special Test Scores Functional Gait Assessment Score: 28 % Disability: 6.6700 Oswestry Low Back Score: 14
== END 2022-03-27 19:00 | disposition home or self-care (01) ==
LOC: PT 15:00
PROVIDERS: PCP Family Medicine
DX: M48.062 Spinal stenosis, lumbar region with neurogenic claudication (principal)
CPT/HCPCS: 97110; 97140; 97162; 97164

== ENCOUNTER → 2022-03-30 | Outpatient (CLI) | payer MEDICARE, OTHER, SELFPAY ==
[2022-03-30 18:09] LABS: Absolute Lymphocyte Count 0.87 X10^3/uL (0.83-4.51); Absolute Neutrophil Count 3.2 X10^3/uL (2.0-7.7); Basophil# 0.05 X10^3/uL; Eosinophil# 0.11 X10^3/uL; Eosinophils% 2.2 % (0-5); Hematocrit 43.4 % (37-47); Hemoglobin 13.5 g/dL (12.0-15.0); Lymphocyte # 0.87 X10^3/ul (0.83-4.51); Lymphocyte % 17.6 % (19-41); Mean Corp Hgb Conc 31.1 g/dL (32-36); Mean Corpuscular Hgb 28.2 pg (27.0-32.0); Mean Corpuscular Volume 90.8 fL (81-99); Mean Platelet Vol. 9.9 fl (6.2-12.0); Monocyte# 0.68 X10^3/uL; Monocyte% 13.8 % (0-10); NRBC Flagged by Analyzer 0 % (0-5); Neutrophil % 64.8 % (47-70); Platelet Count 199 K/mm3 (150-450); RBC Distribution Width CV 16.4 % (11.6-14.6); RBC Distribution Width SD 54.2 fl (35.1-43.9); Red Blood Count 4.78 M/mm3 (4.2-5.4); White Blood Count 4.9 K/mm3 (4.4-11.0)
[2022-03-30 18:15] LABS: Erythrocyte Sedimentation Rate 9 mm/hr (0-30)
[2022-03-30 18:16] LABS: International Normalized Ratio 1.1; Prothrombin Time (Protime)PT. 13.9 SECONDS (11.7-14.9)
[2022-03-30 18:17] LABS: Partial Thromboplast Time 28.1 Seconds (24.1-36.2)
[2022-03-30 18:50] LABS: AST(SGOT) 24 U/L (15-37); Alanine Aminotransfer ALT/SGPT 27 U/L (13-56); Albumin, Serum 3.3 g/dL (3.2-5.0); Alkaline Phosphatase 84 U/L (45-117); Anion Gap 5 (5-15); BUN 17 mg/dL (7-18); BUN/Creat Ratio 17.9 RATIO (10-20); CRP < 2.90 mg/L (0.0-3.0); Calcium,Total 8.6 mg/dL (8.5-10.1); Chloride 106 mmol/L (98-107); Creatinine, Serum 0.95 mg/dL (0.55-1.02); EST Glomerular Filtration Rate 62 mL/min (>60); Est Glom Filt Rate - Afr Amer 75 mL/min (>60); Globulin 3.2 g/dL (2.2-4.2); Glucose 78 mg/dL (74-106); Potassium 4.3 mmol/L (3.5-5.1); Protein, Total 6.5 g/dL (6.4-8.2); Sodium Level 141 mmol/L (136-145)
== END | disposition home or self-care (01) ==
LOC: BFHLAB 16:32
PROVIDERS: PCP Family Medicine; Visit Provider Family Medicine
DX: Z01.818 Encounter for other preprocedural examination (principal); E11.9 Type 2 diabetes mellitus without complications; Z79.01 Long term (current) use of anticoagulants
CPT/HCPCS: 36415; 80053; 85025; 85610; 85652; 85730; 86140

== ENCOUNTER → 2022-03-31 | Outpatient (CLI) | payer MEDICARE, OTHER, SELFPAY ==
--- NOTE | 2022-03-31 09:12 | RAD_ITS ---
EXAM: XR CHEST, 2 VIEWS CLINICAL INDICATION: PRE-OP TECHNIQUE: Frontal and lateral views of the chest. This report was created using [employer] report generation technology. COMPARISON: 08.05.16 FINDINGS: LUNGS AND PLEURAL SPACES: Unremarkable. No consolidation or edema. No pneumothorax. No effusion. HEART: Unremarkable. Cardiac silhouette not enlarged. MEDIASTINUM: Central airways and mediastinal contour are unremarkable. BONES/JOINTS: Unremarkable. SOFT TISSUES: Unremarkable. RAD/Chest PA and Lateral IMPRESSION: No radiographic evidence of acute cardiopulmonary disease. Electronically Signed: Rogelio Christian MD at 19:27 EST ,
[2022-03-31 10:14] LABS: Glucose, Dipstick Normal (Normal); Ketone-Dipstick Negative (Negative); Leukocyte Esterase-Dipstick Negative /ul (Negative); Nitrite-Dipstick Negative (Negative); Occult Blood-Urine Negative /ul (Negative); Protein-Dipstick 15 mg/dl (Negative); Specific Gravity, Urine 1.025 (1.002-1.030); Urine Bilirubin Dipstick Negative (Negative); Urine Urobilinogen Normal (Normal)
[2022-03-31 10:15] LABS: Color, Urine Yellow (Yellow); Urine Clarity Clear (Clear)
== END | disposition home or self-care (01) ==
PROVIDERS: PCP Family Medicine; Referring Provider Family Medicine; Visit Provider Family Medicine
DX: Z01.818 Encounter for other preprocedural examination (principal); M54.16 Radiculopathy, lumbar region; R30.0 Dysuria
CPT/HCPCS: 71046; 81002; 87077; 87086; 87088; 87186

== ENCOUNTER → 2022-08-17 | Outpatient (CLI) | payer MEDICARE, OTHER, SELFPAY ==
[2022-08-17 18:19] LABS: Absolute Lymphocyte Count 1.31 X10^3/uL (0.83-4.51); Basophil# 0.06 X10^3/uL; Basophil% 1.1 % (0-1); Eosinophil# 0.28 X10^3/uL; Hematocrit 45.2 % (37-47); Hemoglobin 14.1 g/dL (12.0-15.0); Lymphocyte # 1.31 X10^3/ul (0.83-4.51); Lymphocyte % 23.6 % (19-41); Mean Corp Hgb Conc 31.2 g/dL (32-36); Mean Corpuscular Hgb 25.6 pg (27.0-32.0); Mean Corpuscular Volume 82.2 fL (81-99); Mean Platelet Vol. 10.2 fl (6.2-12.0); Monocyte# 0.83 X10^3/uL; NRBC Flagged by Analyzer 0 % (0-5); Neutrophil # 3.02 X10^3/uL (2.7-7.7); Neutrophil % 54.4 % (47-70); Platelet Count 210 K/mm3 (150-450); RBC Distribution Width CV 16.5 % (11.6-14.6); RBC Distribution Width SD 49.2 fl (35.1-43.9); White Blood Count 5.6 K/mm3 (4.4-11.0)
[2022-08-17 18:36] LABS: AST(SGOT) 28 U/L (15-37); Alanine Aminotransfer ALT/SGPT 29 U/L (13-56); Albumin, Serum 3.3 g/dL (3.2-5.0); Creatinine, Serum 0.93 mg/dL (0.55-1.02); EST Glomerular Filtration Rate 63 mL/min (>60); Est Glom Filt Rate - Afr Amer 76 mL/min (>60)
== END | disposition home or self-care (01) ==
LOC: MTLAB 15:35
PROVIDERS: PCP Family Medicine
DX: Z79.899 Other long term (current) drug therapy (principal)
CPT/HCPCS: 36415; 82040; 82565; 84450; 84460; 85025

== ENCOUNTER 2022-08-20 16:30 | Outpatient (RCR) | payer MEDICARE, OTHER, SELFPAY ==
--- NOTE | 2022-05-11 08:52 | HP.PTEVAL ---
Patient's Visit Information CONCETTA DOOLEY is a 71 year old F referred to Physical Therapy by EMIL VICENTE with a diagnosis of Lumbar fusion 04/20/22, impaired gait. Date of Evaluation: 05/11/22 Physical Therapist: Vincenzo Jensen, DPT, OCS, CSCS - Visit Plan Frequency: 2-3x /Week Duration: 3 Months Plan: 2-3x/week for 812 weeks as needed for. start with isometric core exercises, rollout and stretch quad and pirifromis and HS and teach for HEP, general strengthening with back in neutral and progress to gym as tolerated, gait training as safety allows away from walker and stair training. Pt is WBAT, no bending,twisting or lifting >10# until end June - Subjective FusionL was 04/20/22 in [facility] and went to rehab for one week. Home since may 04 after took stitched out and it is healing well. Fusion was due to nerve pain in l leg and LBP. That is a little better during the day, now that bothers her most at night and keeps her up. That pain goes down lateral andterior L leg. Just some minor foot neuropathy in R LE. Not gnawing. LB soreness i typical lately. Hard to get moving in the am. Taking neurontin 3x/day and roboxin 4x/day. Sometiimes they help her night pain and takes oxycodone to sleep last two nights. Has tried heat. Sleeping on side L with Heat, pillow between knees. Precautions: no bending lifting or twisting(lift 8-10# only),. No brace needed. Rehab gave her some band pulls with UE she is doing. Standing marching, abd, minisquats,. Has restoration bed that she uses to pull herself up. Lives with son and dtr in law and they are home. Uses them for cooking right now and bending at home to lower cupboards. pt dresses herself slowly, bathroom self, showers I in walk in shower handicap accessible. Two steps in garage and uses ramp, did two steps OK yesterday. No new symptoms form the surgery outside of surgical pain but does feel weak in LE from the surgery. Uses wh walker all the time and has coke oven mason and sock aide. L leg gave out a little in rehab but not lately. 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 Not driving yet. Son brought her today. - Pain L leg ache Pain Intensity (Out of 10): 3 Pain Intensity Range: 0, 10 Comment: keeps up at night. - Objective Wals mod i with wh walker today. Trasnfers using UE I. steps require two rails and show weakness but I. Gait without AD is able but slow with short steps and noticeable L trendelenberg and hesitant on L LE. Tightness obvious in quad and piriformis and ITB and HS, - SLR, - slump. AROM LB not tested. ROM LE WFL, AROM hip extension to 5 only and flexion to 100, knees and ankles WFL. UE aROM WFL. reflexes 1/3 patella and achilles. Sensation B feet at deficit to gross light touch. strength ankles 4/5 wihtout myuotomal problems or foot drop, knees 4- ext and flexion, hip flexion 3+, abd 3 L and 3+ R, extension 3. stand balance is able eo and ec rhomberg without AD. Incison is still scabbed for about 2 inches in middle but tissue around it looks good and no signs of redness heat or swellling. - Balance/Special Test Scores Oswestry Low Back Score: 27 - Goals Goal 1:: ST: Walks home without need for AD Goal Time Frame: 4-6 Weeks Goal 2:: ST: sleep through the night 6 hours without interruption Goal Time Frame: 4-6 Weeks Goal 3:: LT: Ambulate community without AD and steps reciprocal with one rail Goal Time Frame: 6-8 Weeks Goal 4:: LT: plan to return to work Goal Time Frame: 6-8 Weeks Goal 5:: LT: Ready to walk down aisle at son's wedding without gait deviations safe and I Goal Time Frame: 6-8 Weeks Goal 6:: I appropriate gym adn home HEP Goal Time Frame: 8-12 Weeks - Rehabilitation Potential Physical Therapy Diagnosis: Diminished mobility after lumbar fusion surgery Rehabilitation Potential: Good - Anticipated Interventions Patient/Client Instruction: Educate patient on: Condition, Plan of Care For the Purpose of:: To decrease pain, To increase ROM, To improve muscle performance and motor function, To increase tolerance to activity/condition/position, To improve ability of physical actions for home/community/work/leisure Therapeutic Exercise to Include: Strength training, Balance training, Postural training, Flexibilty training, Gait and locomotor training, Passive ROM, Active ROM Comment: lumbar stabs For the Purpose of:: To decrease pain, To increase ROM, To improve nutrient delivery to tissue, To improve muscle performance and motor function, To improve ability to perform ADL's, To increase tolerance to activity/condition/position, To improve ability of physical actions for home/community/work/leisure, To improve gait and locomotor functions Manual Therapy Techniques to Include: Mobilization, Passive ROM, Soft tissue mobilization For the Purpose of:: To decrease pain, To decrease swelling/inflammation, To improve nutrient delivery to tissue, To improve ability of physical actions for home/community/work/leisure, To improve gait and locomotor functions Cryotherapy (ice pack, ice massage): Yes For the Purpose of:: To decrease swelling/inflammation Thank you for the opportunity to evaluate your patient. For Medicare and Medicare HMO plans, please review the plan of care and approve it. It will need to be FAXED BACK to us at [phone] for Medicare purposes. For Medicare only, by signing this I certify the plan of care. Please let me know if there are questions or concerns regarding this plan of care. Physician Signature: Date:
--- NOTE | 2022-07-10 13:23 | HP.PTREVAL ---
EMIL VICENTE, It has been my pleasure to treat CONCETTA DOOLEY over the last 21 visits for Lumbar fusion 04/20/22, impaired gait. Please see the progress note below for an update on the physical therapy plan of care! Subjective: Wants to get rid of trendelenberg gait and limp. I am getting better. 85% there. Pain is not bad. Wants to get rid of limp. had covid the first of June so mild set back. Sitting alot lately. sleeping OK. To doctor next week, wants 6 more weeks off due to much sitting. Objective/Function: Walking with slight L trendelenberg but improving, can minimze it with focus or with cane. Steps are reciprocal with two rails, can do with rail with weakness L >R. Lumbar ROM ext min limited, flexion mod to max limited but bends knees and hips appropriately. overall pain and function ahead of schedule and appropriate to cotninue toward unmet goals needing skilled intervention to safely wean back to gym ex adn work ROM spine. Plan Plan: 2-3x/week x 4-6 for Progression to I with gym machines for core, LE and posture until can do them herself. Also progression of gentle Lumbar ROM after doctor visist 07/15 if allowed by doctor. Continue hip strength for gait progression and SLS, steps. One more month in original plan of care and patient appropriaate for 406 more weeks toward same goals with good prognosis. Balance/Gait/Functional tests - Balance/Special Test Scores Oswestry Low Back Score: 14 Goals Goal 1:: ST: Walks home without need for AD Goal Time Frame: 4-6 Weeks Goal Progress: cane much of time., appro Goal 2:: ST: sleep through the night 6 hours without interruption Goal Time Frame: 4-6 Weeks Goal Progress: Goal Met Goal 3:: LT: Ambulate community without AD and steps reciprocal with one rail Goal Time Frame: 6-8 Weeks Goal Progress: still weak steps Goal 4:: LT: plan to return to work Goal Time Frame: 6-8 Weeks Goal Progress: wants 6 more weeks Goal 5:: LT: Ready to walk down aisle at son's wedding without gait deviations safe and I Goal Time Frame: 6-8 Weeks Goal Progress: near met Goal 6:: I appropriate gym adn home HEP Goal Time Frame: 8-12 Weeks Goal Progress: Progressing Anticipated Interventions Patient/Client Instruction: Educate patient on: Condition, Plan of Care For the Purpose of:: To decrease pain, To increase ROM, To improve muscle performance and motor function, To increase tolerance to activity/condition/position, To improve ability of physical actions for home/community/work/leisure Therapeutic Exercise to Include: Strength training, Balance training, Postural training, Flexibilty training, Gait and locomotor training, Passive ROM, Active ROM Comment: lumbar stabs For the Purpose of:: To decrease pain, To increase ROM, To improve nutrient delivery to tissue, To improve muscle performance and motor function, To improve ability to perform ADL's, To increase tolerance to activity/condition/position, To improve ability of physical actions for home/community/work/leisure, To improve gait and locomotor functions Manual Therapy Techniques to Include: Mobilization, Passive ROM, Soft tissue mobilization For the Purpose of:: To decrease pain, To decrease swelling/inflammation, To improve nutrient delivery to tissue, To improve ability of physical actions for home/community/work/leisure, To improve gait and locomotor functions Cryotherapy (ice pack, ice massage): Yes For the Purpose of:: To decrease swelling/inflammation Please do not hesitate to contact me at [phone] by phone or if you have questions or concerns regarding this new plan of care! Sincerely, Vincenzo Jensen, DPT, OCS, CSCS
--- NOTE | 2022-08-20 17:17 | HP.PTDCSUM ---
Discharge Summary D/C summary: It has been my pleasure to treat CONCETTA DOOLEY referred by EMIL VICENTE, with the diagnosis of Lumbar fusion 04/20/22, impaired gait for a total of 29 visit(s). Discharge Date: 08/20/22 Please see the following information for a summary of their discharge status. Subjective Subjective: back is pretty good. Some soreness some days, maybe weather related. Has not been in to strengthen as often as she should. Has worked out a few times on own. Sleep is with back. Neuropathy in legs drives her crazy and is on diabetic meds again. Activities are getting back to normal. Started stretching FW at home. Walks without cane at home but cane for longer distances at hospital with kid. Adrianna go back to work next week but seeking leave for child's medical condition. Surgeon wants her on feet 15 minutes of every hour also which may be tough. Pain L leg ache: Pain Intensity (Out of 10): 0 LB: Pain Intensity (Out of 10): 0 Overall Improvement % Improvement: 95 Objective Objective/Function: AROM Lumbar is good in ext, min limited SB neither is painful. Flexion is stiff expectedly but improving. Walking with only very slight R trendelenberg today, steps with one rail I reciprocal. Pain is way down. Admittedly hard time getting in for strength due to son being in hospital for 7 weeks. Despite that, is showing good improvement and feels ready to be on own. Goals Goal 1:: ST: Walks home without need for AD Goal Progress: Goal Met Goal 2:: ST: sleep through the night 6 hours without interruption Goal Progress: Goal Met Goal 3:: LT: Ambulate community without AD and steps reciprocal with one rail Goal Progress: Goal Met Goal 4:: LT: plan to return to work Goal Progress: back OK Goal 5:: LT: Ready to walk down aisle at son's wedding without gait deviations safe and I Goal Progress: Goal Met Goal 6:: I appropriate gym adn home HEP Goal Progress: Goal Met Plan Plan: ready for d/c. Will try to continue strength on own. D/C Information d/c sentence: If there are questions or concerns regarding this patient's physical therapy, please feel free to call me at [phone]. Thank you for the referral of this patient. Sincerely, Vincenzo Jensen, DPT, OCS, CSCS Balance/Gait/Functional tests Balance/Special Test Scores Oswestry Low Back Score: 2
== END 2022-08-20 19:00 | disposition home or self-care (01) ==
LOC: PT 16:30
PROVIDERS: PCP Family Medicine
DX: Z47.89 Encounter for other orthopedic aftercare (principal); R26.89 Other abnormalities of gait and mobility; M48.061 Spinal stenosis, lumbar region without neurogenic claudication; M21.371 Foot drop, right foot
CPT/HCPCS: 97110; 97162; 97164; 97530

== ENCOUNTER → 2022-12-11 | Outpatient (CLI) | payer MEDICARE, OTHER, SELFPAY ==
--- NOTE | 2022-12-11 10:30 | BI_ITS ---
MAMMOGRAPHY - BILATERAL SCREENING REASON FOR EXAM: Female, 72 years old. Routine annual screening examination. PERTINENT HISTORY: Non-contributory. History of remote bilateral stereotactic breast biopsies. TECHNIQUE: Digital bilateral breast rocio (3D mammographic acquisition) in the CC and MLO projections. 2-D mediolateral oblique (MLO) and craniocaudad (CC) views of both breasts were obtained. CAD: Full Field Digital Mammography with Computer Added Detection was performed. COMPARISON: Comparison is made with prior examination December 10, 2021 and June 12, 2020. FINDINGS: Breast Composition: The breasts are heterogeneously dense, which may obscure small masses. There are no dominant masses or suspicious calcifications. Once again, tissue markers are seen in the retroareolar areolar regions of both breasts. No other significant abnormalities are identified. There has been no significant change since the prior study. BI/SCRN MAMM (CAD)W/ROCIO BILAT IMPRESSION: Stable bilateral screening mammogram. Yearly follow-up mammogram recommended. (A) ASSESSMENT CATEGORY: BIRADS Category 2: Benign. A letter regarding these results will be sent to the patient by the facility within 30 days. Approximately 10% of breast cancers are not detected by mammography. A normal mammogram should not delay biopsy of a clinically suspicious abnormality. [id number] Electronically Signed: Jarret Kennedy MD at 12:25 EDT ,
== END | disposition home or self-care (01) ==
LOC: OPBI 10:28
PROVIDERS: PCP Family Medicine; Referring Provider Family Medicine; Visit Provider Family Medicine
DX: Z12.31 Encounter for screening mammogram for malignant neoplasm of breast (principal)
CPT/HCPCS: 77063; 77067

== ENCOUNTER → 2023-01-18 | Outpatient (CLI) | payer MEDICARE, OTHER, SELFPAY ==
--- NOTE | 2023-01-18 15:25 | RAD_ITS ---
STUDY: X-RAY - PELVIS AND RIGHT HIP REASON FOR EXAM: Female, 72 years old. Pain. TECHNIQUE: 3 views of the pelvis and hip. COMPARISON: None. FINDINGS: Normal bowel gas pattern. Phleboliths. Osteopenia. Lower lumbosacral fusion with bilateral SI joint fusion. Mild arthrosis of the sacroiliac joints and the symphysis pubis. Mild arthrosis of both hips. RAD/HIP, UNI W/ Pelvis 2-3 Views IMPRESSION: Osteopenia with postfusion changes of the lower lumbosacral spine and both sacroiliac joints. Mild osteoarthrosis of the sacroiliac joints, symphysis pubis and both hips. Electronically Signed: Jhon Morrison MD at 10:51 EST ,
== END | disposition home or self-care (01) ==
LOC: MTRAD 15:24
PROVIDERS: PCP Family Medicine
DX: M25.551 Pain in right hip (principal)
CPT/HCPCS: 73502

== ENCOUNTER 2023-03-04 13:00 | Outpatient (RCR) | payer MEDICARE, OTHER, SELFPAY ==
--- NOTE | 2023-01-21 17:15 | HP.PTEVAL_ITS ---
Patient's Visit Information Visit Information Visit Information: CONCETTA DOOLEY is a 72 year old F referred to Physical Therapy by ASHVIN CARMICHAEL with a diagnosis of R hip pain. Date of Evaluation: 01/21/23 Physical Therapist: Vincenzo Jensen, DPT, OCS, CSCS Visit Plan Frequency: 3x /Week Duration: 4-6 Weeks Plan: 3x/week for 4 weeks for 1. US nonthermal to R GT area 2. DTR to R piriformis area and stretch ITB, TFL, pirifomris, quad 3. hip stabs and strength as a.m. pain improves. Pt is doing quad, ITB and piri stretches as HEP and will start back on machines in gym Subjective Subjective: R hip hurts. Not bad during the day. Gets LB stiffness since fusion last year. 6-8 weeks ago got R quad stiffness and pain which went away. last 4 weeks in the am has R hip pain posterior laterally. hard to step first thing in am. Takes roboxin and neurontin and in an hour is good. Fell on R hip on November 29 carrying a pale of walker and tripping on her suede mocassins on the rug. Has had to take a pain pill in the last weeks due to that paiin. After a couple hours, it goes away and does not come back until the next am. this happens for the last 3-4 weeks. had hip x ray which showed osteopenia and OA in bojth hips. Rhumatologist wrote order for R hip pain. Sleeping well adn not painful to turn at night. Worked until yesterday, all that sitting is not helping matters as she is sore when she wakes up. Does her basic ADLS. Has been doing some HEP but not in gym. Pain R hip pain: Pain Intensity (Out of 10): 0 Pain Intensity Range: 0 and 10 Objective Objective: L trendelnberg in gait with some R antalgia but I without AD. Trasnfers slow but I. Tender max to touch over r GT bursa area and into piriformis, not on L Hip PROM is good and without a lot of pain, symmetircal and WFL, knees limited due to previous TKA B. Tightness evident in quad B, ITB B, and piriformis B. reflexes 1/3 patella and achilles B. sensation LE WNL to gross light touch but likely neuropathy in LE. strength hips stabs 3+, hip flexion and 3+ B, hip abduction 3 B with R hip pain, ext 3 B. knees and ankles strength 4/5 - YANICK, - FADDIR Balance/Special Test Scores Lower Extremity Functional Score: 29 Goals Goal 1:: Pateint get out of bed with 80% less pain and 1/10 at worst Goal Time Frame: 4-6 Weeks Goal 2:: i appropr HEp to minimize future problems with pain Goal Time Frame: 4-6 Weeks Goal 3:: LEFS score 50 Goal Time Frame: 4-6 Weeks Rehabilitation Potential Physical Therapy Diagnosis: R hip pain likely bursitis limiting fucntion and comfort Rehabilitation Potential: Good Anticipated Interventions Patient/Client Instruction: Educate patient on: Condition and Plan of Care For the Purpose of:: To decrease pain, To increase ROM, To improve muscle performance and motor function and To increase tolerance to activity/condition/position Therapeutic Exercise to Include: Strength training, Postural training, Flexibilty training, Gait and locomotor training, Passive ROM and Active ROM For the Purpose of:: To decrease pain, To increase ROM, To improve nutrient delivery to tissue, To improve gait and locomotor functions and To improve health of tissue Manual Therapy Techniques to Include: Mobilization, Passive ROM and Soft tissue mobilization For the Purpose of:: To decrease pain, To decrease swelling/inflammation, To increase ROM and To improve nutrient delivery to tissue TENS: Yes Cryotherapy (ice pack, ice massage): Yes Ultrasound (thermal/non thermal): Yes For the Purpose of:: To decrease pain and To decrease swelling/inflammation Text: Thank you for the opportunity to evaluate your patient. For Medicare and Medicare HMO plans, please review the plan of care and approve it. It will need to be FAXED BACK to us at [phone] for Medicare purposes. For Medicare only, by signing this I certify the plan of care. Please let me know if there are questions or concerns regarding this plan of care. Physician Signature: Date:
--- NOTE | 2023-03-04 13:31 | HP.PTDCSUM ---
Discharge Summary D/C summary: It has been my pleasure to treat CONCETTA DOOLEY referred by ASHVIN CARMICHAEL, with the diagnosis of R hip pain for a total of 8 visit(s). Discharge Date: 03/04/23 Please see the following information for a summary of their discharge status. Subjective Subjective: OK. Got back in to exercises 1 or two times as she was sick. Bursitis stuff is pretty good. I know what to do for that. Still has some LB achiness mostly in cold weather. Does HEP regularly. Going to [place] in march. Will be ready. Just needs to get back to regular exercise and can do that on own. No f/u with doctor for back. Pain R hip pain: Pain Intensity (Out of 10): 0 LBP: Pain Intensity (Out of 10): 5 Overall Improvement % Improvement: 85 Objective Objective/Function: [place]k with very slight L trendelenberg gait improving from last year. Lumbar AROM ext min limited adn painfree. flexion mod limited and painfree. SB mod limited B and without pain. Steps are reciprocal with one rail, slightly less stable on L with pelvis but safe. Overall feeling good and like she just needs to be more consistent with exercises whcih she feels like she can do on own. Goals Goal 1:: Pateint get out of bed with 80% less pain and 1/10 at worst Goal Progress: Goal Met Goal 2:: i appropr HEp to minimize future problems with pain Goal Progress: Goal Met, non comply gym Goal 3:: LEFS score 50 Goal Progress: Progressing Plan Plan: d/c to HEP and gym program 3x/week each. D/C Information Discharge Comments: Pt to continue via HEP. d/c sentence: If there are questions or concerns regarding this patient's physical therapy, please feel free to call me at [phone]. Thank you for the referral of this patient. Sincerely, Vincenzo Jensen, DPT, OCS, CSCS Balance/Gait/Functional tests Balance/Special Test Scores Lower Extremity Functional Score: 33 Improvement % Improvement: 85
== END 2023-03-04 19:00 | disposition home or self-care (01) ==
LOC: PT 13:00
PROVIDERS: PCP Family Medicine
DX: M25.551 Pain in right hip (principal)
CPT/HCPCS: 97035; 97110; 97161; 97164; 97530

== ENCOUNTER → 2023-04-12 | Outpatient (CLI) | payer MEDICARE, OTHER, SELFPAY ==
--- NOTE | 2023-04-12 09:09 | RAD_ITS ---
STUDY: X-RAY CHEST REASON FOR EXAM: Female, 72 years old. ABN FINDINGS TECHNIQUE: PA and lateral views of the chest. COMPARISON: Comparison is made with prior study dated March 31, 2022. FINDINGS: There is hyperinflation of the lungs consistent with chronic obstructive lung disease (COPD). Stable mild increased linear markings at the lung bases suggestive of scarring. There is no demonstrated pleural abnormality. Normal size heart. Normal mediastinum and laura. There is prominence of the pulmonary hilar arteries without peripheral pulmonary vascular congestion, suggesting pulmonary hypertension. Normal visualized aortic arch and descending thoracic aorta. There are degenerative changes of the visualized thoracic spine. Normal visualized ribs, clavicles, and shoulders. There is no demonstrated abnormality of the visualized soft tissue structures of the upper abdomen. RAD/Chest PA and Lateral IMPRESSION: Hyperinflation. Stable mild increased markings at the lung bases suggestive of scarring. Electronically Signed: Jarret Kennedy MD at 11:16 EST ,
== END | disposition home or self-care (01) ==
PROVIDERS: PCP Family Medicine
DX: R93.89 Abnormal findings on diagnostic imaging of other specified body structures (principal)
CPT/HCPCS: 71046

== ENCOUNTER → 2023-04-28 | Outpatient (CLI) | payer MEDICARE, OTHER, SELFPAY | END | disposition home or self-care (01) | LOC: PSN 09:21 | PROVIDERS: PCP Family Medicine; Referring Provider Family Medicine; Visit Provider Family Medicine | DX: J84.9 Interstitial pulmonary disease, unspecified (principal) | CPT/HCPCS: 94060; 94726; 94729 ==

== ENCOUNTER → 2023-06-21 | Outpatient (CLI) | payer MEDICARE, OTHER, SELFPAY ==
[2023-06-21 15:22] LABS: Absolute Lymphocyte Count 1.27 X10^3/uL (0.83-4.51); Absolute Neutrophil Count 1.4 X10^3/uL (2.0-7.7); Basophil# 0.07 X10^3/uL; Basophil% 1.7 % (0-1); Eosinophil# 0.37 X10^3/uL; Hematocrit 45.8 % (37-47); Hemoglobin 14.4 g/dL (12.0-15.0); Lymphocyte # 1.27 X10^3/ul (0.83-4.51); Lymphocyte % 30.9 % (19-41); Mean Corp Hgb Conc 31.4 g/dL (32-36); Mean Corpuscular Hgb 28.6 pg (27.0-32.0); Mean Corpuscular Volume 90.9 fL (81-99); Mean Platelet Vol. 10.9 fl (6.2-12.0); Monocyte# 1.04 X10^3/uL; Monocyte% 25.3 % (0-10); NRBC Flagged by Analyzer 0 % (0-5); Neutrophil # 1.35 X10^3/uL (2.7-7.7); Neutrophil % 32.9 % (47-70); Platelet Count 154 K/mm3 (150-450); RBC Distribution Width CV 15.9 % (11.6-14.6); RBC Distribution Width SD 53.9 fl (35.1-43.9); Red Blood Count 5.04 M/mm3 (4.2-5.4); White Blood Count 4.1 K/mm3 (4.4-11.0)
[2023-06-21 16:02] LABS: D-Dimer Quantitative (DVT/PE) 0.37 FEU/ug/m (0.27-0.49)
== END | disposition home or self-care (01) ==
LOC: BFHLAB 13:19
PROVIDERS: PCP Family Medicine; Referring Provider Family Medicine; Visit Provider Family Medicine
DX: R60.0 Localized edema (principal); R76.9 Abnormal immunological finding in serum, unspecified; Z79.899 Other long term (current) drug therapy
CPT/HCPCS: 36415; 85025; 85379

== ENCOUNTER → 2023-06-24 | Outpatient (CLI) | payer MEDICARE, OTHER, SELFPAY ==
--- NOTE | 2023-06-24 13:48 | VDUE_ITS ---
Reason For Study: Left arm edema Left Proximal Left jugular vein is spontaneous, widely patent, phasic, with no intraluminal echogenicity noted. Left subclavian vein is spontaneous, widely patent, phasic, with no intraluminal echogenicity noted. Left Arm Left axillary vein is spontaneous, patent, phasic, competent, compressible and demonstrates augmentation. Left brachial vein is compressible. Left cephalic vein is compressible. Left basilic vein is compressible. Left Lower Arm Left radial vein is compressible. Left ulnar vein is compressible. Patient Safety Preliminary report given to Dr. Marion. VL/Venous Duplex US, Unilateral Interpretation Summary Deep veins of the left upper extremity are patent and compressible segmentally. There is no evidence of deep vein thrombosis. Superficial veins of the left upper extremity are patent and compressible segme ntally. There is no evidence of superficial vein thrombosis. Ordering Physician: Morena Marion Referring Physician: Morena Marion Performed By: Yasmin Flores RVT ???
== END | disposition home or self-care (01) ==
LOC: CVS 13:47
PROVIDERS: PCP Family Medicine; Referring Provider Family Medicine; Visit Provider Family Medicine
DX: R60.0 Localized edema (principal); I86.8 Varicose veins of other specified sites
CPT/HCPCS: 93971

== ENCOUNTER → 2023-07-08 | Outpatient (CLI) | payer MEDICARE, OTHER, SELFPAY ==
[2023-07-08 15:29] LABS: Absolute Lymphocyte Count 1.37 X10^3/uL (0.83-4.51); Absolute Neutrophil Count 1.7 X10^3/uL (2.0-7.7); Basophil# 0.05 X10^3/uL; Basophil% 1.2 % (0-1); Eosinophil# 0.28 X10^3/uL; Eosinophils% 6.5 % (0-5); Hematocrit 48.8 % (37-47); Hemoglobin 15.2 g/dL (12.0-15.0); Lymphocyte # 1.37 X10^3/ul (0.83-4.51); Lymphocyte % 31.7 % (19-41); Mean Corp Hgb Conc 31.1 g/dL (32-36); Mean Corpuscular Hgb 27.9 pg (27.0-32.0); Mean Corpuscular Volume 89.7 fL (81-99); Monocyte# 0.88 X10^3/uL; Monocyte% 20.4 % (0-10); NRBC Flagged by Analyzer 0 % (0-5); Neutrophil # 1.72 X10^3/uL (2.7-7.7); Neutrophil % 39.7 % (47-70); Platelet Count 204 K/mm3 (150-450); RBC Distribution Width CV 15.7 % (11.6-14.6); RBC Distribution Width SD 51.1 fl (35.1-43.9); Red Blood Count 5.44 M/mm3 (4.2-5.4); White Blood Count 4.3 K/mm3 (4.4-11.0)
[2023-07-08 15:58] LABS: AST(SGOT) 24 U/L (15-37); Alanine Aminotransfer ALT/SGPT 27 U/L (13-56); Albumin, Serum 3.4 g/dL (3.2-5.0); Alkaline Phosphatase 120 U/L (45-117); Anion Gap 9 (5-15); BUN 12 mg/dL (7-18); BUN/Creat Ratio 15.9 RATIO (10-20); Calcium,Total 8.9 mg/dL (8.5-10.1); Chloride 106 mmol/L (98-107); Creatinine, Serum 0.76 mg/dL (0.55-1.02); EST Glomerular Filtration Rate 80 mL/min (>60); Est Glom Filt Rate - Afr Amer 97 mL/min (>60); Globulin 3.3 g/dL (2.2-4.2); Glucose 125 mg/dL (74-106); Potassium 3.8 mmol/L (3.5-5.1); Protein, Total 6.7 g/dL (6.4-8.2); Sodium Level 140 mmol/L (136-145)
== END | disposition home or self-care (01) ==
PROVIDERS: PCP Family Medicine; Referring Provider Family Medicine; Visit Provider Family Medicine
DX: R53.83 Other fatigue (principal); R19.7 Diarrhea, unspecified
CPT/HCPCS: 36415; 80053; 85025

== ENCOUNTER → 2023-07-27 | Outpatient (CLI) | payer MEDICARE, OTHER, SELFPAY ==
--- NOTE | 2023-07-27 16:00 | CT_ITS ---
STUDY: CT CHEST WITH CONTRAST REASON FOR EXAM: Female, 72 years old. HYPOXEMIA RADIATION DOSAGE (If Supplied By Facility): CTDIvol = ( 11.53 ) mGy, DLP = ( 732.07 ) mGycm TECHNIQUE: Transaxial imaging was performed following intravenous administration of IV 100mL Isovue-300. Multiplanar coronal and sagittal images were reformatted. Individualized dose optimization techniques were used for this CT. COMPARISON: Comparison is made with prior study dated December 17, 2020. FINDINGS: CHEST Stable increased linear markings at the lung bases slightly worse in the left lower lobe suggestive of scarring. Stable 3 mm noncalcified nodule in the inferior aspect of the right temporal lobe adjacent to the minor fissure. There is no demonstrated pleural abnormality. Normal heart and pericardium. No significant coronary calcification is seen. Normal mediastinum. Normal hilar regions. Normal unenhanced pulmonary arteries. Normal aorta arch and descending thoracic aorta. There are multi-level degenerative changes of the thoracic spine. There is no demonstrated abnormality of the visualized upper abdomen. CT/Chest WITH Contrast IMPRESSION: Stable examination. Electronically Signed: Jarret Kennedy MD at 7:59 EDT ,
== END | disposition home or self-care (01) ==
LOC: CT 15:50
PROVIDERS: PCP Family Medicine; Referring Provider Family Medicine; Visit Provider Family Medicine
DX: R06.09 Other forms of dyspnea (principal); R09.02 Hypoxemia
CPT/HCPCS: 71260; Q9967

== ENCOUNTER → 2023-09-01 | Outpatient (CLI) | payer MEDICARE, OTHER, SELFPAY ==
--- NOTE | 2023-09-01 12:52 | ECHOCS_ITS ---
Reason For Study: HORNE, Procedure This was a 2D Doppler, Color Flow transthoracic echocardiogram. The study was technically difficult. Exam performed in department. Left Ventricle Normal LV size. The estimated ejection fraction is 65 %. No evidence for diastolic dysfunction. No regional wall motion abnormalities noted. Right Ventricle Normal RV size. Normal systolic function. Atria Normal left atrium. Normal right atrium. No doppler evidence for ASD. Mitral Valve There is no mitral valve stenosis. No mitral valve insufficiency. Tricuspid Valve There is no tricuspid stenosis. Unable to estimate RV systolic pressure due to inadequate jet, pulmonary artery pressure probably normal. Aortic Valve Trisinus/trileaflet aortic valve. There is no aortic stenosis. No aortic valve insufficiency. Pulmonic Valve There is no pulmonic valvular stenosis. No pulmonic valve insufficiency. Great Vessels Normal aortic root. Pericardium/Pleural No pericardial effusion. Medication 22 gauge I.V. with prn adaptor inserted into right arm. Diluted definity 1.5ml given slow IV push to enhance endocardial definition. MMode/2D Measurements & Calculations LVIDd: 3.8 cm IVSd: 1.1 cm LVOT diam: 2.0 cm LVIDs: 2.3 cm LVPWd: 1.2 cm RVDd: 2.9 cm FS: 40.5 % LVOT area: 3.0 cm2 Ao root diam: 3.1 cm LAV(MOD-bp): 33.6 ml LVAd ap4: 31.8 cm2 LAV(MOD-bp) Indexed: 15.1 ml/m2 LVLd ap4: 8.0 cm LAV(MOD-sp2): 42.1 ml EDV(MOD-sp4): 105.4 ml LAV(MOD-sp4): 22.7 ml EDV(sp4-el): 106.5 ml LVAs ap4: 14.4 cm2 LVLs ap4: 6.6 cm ESV(MOD-sp4): 28.6 ml ESV(sp4-el): 26.7 ml EF(MOD-sp4): 72.9 % EF(sp4-el): 74.9 % LVAd ap2: 28.8 cm2 SV(MOD-sp4): 76.8 ml SV(MOD-sp2): 68.4 ml LVLd ap2: 7.5 cm EDV(MOD-sp2): 92.8 ml EDV(sp2-el): 93.9 ml LVAs ap2: 13.2 cm2 LVLs ap2: 6.1 cm ESV(MOD-sp2): 24.4 ml ESV(sp2-el): 24.5 ml EF(MOD-sp2): 73.7 % SV(sp4-el): 79.8 ml LA dimension(2D): 3.1 cm LA A4 area: 11.8 cm2 RA A4 area: 11.1 cm2 TAPSE: 2.0 cm Time Measurements MV dec time: 0.25 sec Doppler Measurements & Calculations MV E max walter: 73.9 cm/sec Lat Peak E' Walter: 4.6 cm/sec Med Peak E' Walter: 6.3 cm/sec MV A max walter: 101.1 cm/sec E/E' lat: 16.0 E/E' med: 11.7 MV E/A: 0.73 Ao V2 max: 141.2 cm/sec LV V1 max: 96.8 cm/sec MV dec slope: 292.8 cm/sec2 Ao max P.0 mmHg LV V1 max P.7 mmHg LEE(V,D): 2.1 cm2 PA V2 max: 66.2 cm/sec PA max PG (full): 0.31 mmHg ECHO/Echo Complete W/ Contrast Interpretation Summary The estimated ejection fraction is 65 %. No evidence for diastolic dysfunction. Ordering Physician: ASHVIN CARMICHAEL Referring Physician: Morena Marion Performed By: Solange Donald RDCS and Student
== END | disposition home or self-care (01) ==
PROVIDERS: PCP Family Medicine
DX: R06.02 Shortness of breath (principal)
CPT/HCPCS: 93306; Q9957; A4216; C8929

== ENCOUNTER → 2023-10-11 | Outpatient (CLI) | payer MEDICARE, OTHER, SELFPAY ==
--- NOTE | 2023-10-11 09:11 | CT_ITS ---
STUDY: CT ABDOMEN AND PELVIS WITHOUT CONTRAST REASON FOR EXAM: Female, 72 years old. Hematuria, unspecified RADIATION DOSAGE (If Supplied By Facility): CTDIvol = ( 22.82 ) mGy, DLP = ( 1180.37 ) mGycm TECHNIQUE: Transaxial images were obtained from the dome of the diaphragm to the symphysis pubis without oral contrast, and without intravenous contrast. Sagittal and coronal images were reconstructed. Individualized dose optimization techniques were used for this CT. COMPARISON: Comparison is made with prior examination dated October 22, 2021. FINDINGS: Stable minimal increased markings at the lung bases suggestive of mild linear scarring. Coronary calcification. There is decreased attenuation of the liver consistent with steatosis. There are surgical clips in the gallbladder fossa consistent with a prior cholecystectomy. Normal spleen. Normal pancreas. Normal bilateral adrenal glands. Normal right kidney. A suspected 2 mm calculus in the midportion of the right ureter. No significant hydronephrosis seen. Normal left kidney. Normal visualized stomach. Stable duodenal diverticulum. Normal small intestine. There are multiple colonic diverticula consistent with diverticulosis. The appendix is visualized and appears normal. There is diffuse atherosclerotic calcification of the abdominal aorta and its major visceral branches, without a demonstrated aneurysm. Normal inferior vena cava. Normal retroperitoneum. Normal urinary bladder. Normal abdominal wall. There are degenerative changes of the visualized lumbar spine. CT/Abdomen/Pelvis without Cont IMPRESSION: Findings suggestive of a 2 mm calculus in the midportion of the right ureter. No evidence of hydronephrosis. Electronically Signed: Jarret Kennedy MD at 15:11 EDT ,
--- NOTE | 2023-10-11 09:31 | CYSPIN_PTH ---
PATIENT: CONCETTA DOOLEY LOC: [place] U#:[id number] AGE/SX: 72/F ROOM: RE10/11/[address]: Dr. Morena Marion DO : 1950 BED: DIS: 10/11/2023 SPEC #: [id number] RECD: 10/11/23 13:44 STATUS: SHANE PETERSBrittni #: [id number] SHAKIR: 10/11/23 09:[address]: Morena Marion DEPT: CYTOLOGY RECD BY: Anna Glover Tissues: Cytologic material, NOS Procedures: Pap Stain (control) Special Stain Group II Cytospin Fluid HEADER OPERATION: Not noted PRE-OP DIAGNOSIS: Hematuria, unspecified TISSUE SUBMITTED: Urine for cytology DIAGNOSIS CYTOLOGY Urine for cytology (cytospin and cell block): Atypical urothelial cells noted ([facility]), Sagrario system category III. Bloody specimen. See jax. 10/12/2023 COMMENT Clinical correlation and appropriate follow up are necessary. Repeat cytology is suggested, if clinically indicated. The Sagrario System for urine cytology diagnostic categorization was used in the evaluation of this case. Case has been reviewed in consultation with Dr. Braun who concurs with the above diagnosis. IDC:AM CYTOLOGY STUDY Slides are reviewed. CYTOLOGY GROSS Received is 25 ml of red-cloudy fluid labeled with the patient's name and and designated per the requisition as urine. Submitted for cytology preparation. Mr 10/11/2023 TC:5 CPT: 93903,46428
[2023-10-11 09:52] LABS: Absolute Lymphocyte Count 0.98 X10^3/uL (0.83-4.51); Absolute Neutrophil Count 1.4 X10^3/uL (2.0-7.7); Basophil# 0.04 X10^3/uL; Basophil% 1.2 % (0-1); Eosinophil# 0.12 X10^3/uL; Eosinophils% 3.7 % (0-5); Hematocrit 46.9 % (37-47); Hemoglobin 14.6 g/dL (12.0-15.0); Lymphocyte # 0.98 X10^3/ul (0.83-4.51); Lymphocyte % 30.4 % (19-41); Mean Corp Hgb Conc 31.1 g/dL (32-36); Mean Corpuscular Hgb 28.4 pg (27.0-32.0); Mean Corpuscular Volume 91.2 fL (81-99); Mean Platelet Vol. 9.3 fl (6.2-12.0); Monocyte# 0.71 X10^3/uL; NRBC Flagged by Analyzer 0 % (0-5); Neutrophil # 1.36 X10^3/uL (2.7-7.7); Neutrophil % 42.4 % (47-70); Platelet Count 138 K/mm3 (150-450); RBC Distribution Width CV 15.3 % (11.6-14.6); RBC Distribution Width SD 51.1 fl (35.1-43.9); Red Blood Count 5.14 M/mm3 (4.2-5.4); White Blood Count 3.2 K/mm3 (4.4-11.0)
[2023-10-11 10:43] LABS: ALB/GLOB Ratio 1.2 RATIO (0.9-2.4); AST(SGOT) 23 U/L (15-37); Alanine Aminotransfer ALT/SGPT 26 U/L (13-56); Albumin, Serum 3.6 g/dL (3.2-5.0); Alkaline Phosphatase 120 U/L (45-117); Anion Gap 4 (5-15); BUN 10 mg/dL (7-18); BUN/Creat Ratio 11.2 RATIO (10-20); Calcium,Total 8.9 mg/dL (8.5-10.1); Chloride 107 mmol/L (98-107); Creatinine, Serum 0.89 mg/dL (0.55-1.02); EST Glomerular Filtration Rate 66 mL/min (>60); Est Glom Filt Rate - Afr Amer 80 mL/min (>60); Globulin 3.1 g/dL (2.2-4.2); Glucose 114 mg/dL (74-106); Potassium 3.9 mmol/L (3.5-5.1); Protein, Total 6.7 g/dL (6.4-8.2); Sodium Level 141 mmol/L (136-145)
[2023-10-13 11:48] LABS: Cytology, Body Fluid / CSF SEE PATHOLOGY REPORT
== END | disposition home or self-care (01) ==
PROVIDERS: PCP Family Medicine; Referring Provider Family Medicine; Visit Provider Family Medicine
DX: R31.9 Hematuria, unspecified (principal); R10.9 Unspecified abdominal pain; R35.89 Other polyuria
CPT/HCPCS: 36415; 74176; 80053; 85025; 87086; 88108; 88313

== ENCOUNTER → 2023-11-03 | Outpatient (CLI) | payer MEDICARE, OTHER, SELFPAY ==
--- NOTE | 2023-11-03 | CYSPIN_PTH ---
PATIENT: CONCETTA DOOLEY LOC: [facility] U#:[id number] AGE/SX: 72/F ROOM: RE11/03/[address]: Dr. Morena Marion DO : 1950 BED: DIS: 11/03/2023 SPEC #: [id number] RECD: 11/03/23 13:54 STATUS: SHANE PETERSBrittni #: [id number] SHAKIR: 11/03/23 00:[address]: Morena Marion DEPT: CYTOLOGY RECD BY: Maru Reeves Tissues: Urine Procedures: Pap Stain (control) Special Stain Group II Cytospin Fluid HEADER OPERATION: Not noted PRE-OP DIAGNOSIS: Hematuria TISSUE SUBMITTED: Urine for cytology DIAGNOSIS CYTOLOGY Urine for cytology (cytospin): Negative for high grade urothelial carcinoma ([facility]), Sagrario System Category II. Bloody specimen. See comment. Sharron 11/04/2023 COMMENT The specimen predominantly consists of squamous epithelial cells. The Sagrario System for urine cytology diagnostic categorization was used in the evaluation of this case. CYTOLOGY STUDY Slides are reviewed. CYTOLOGY GROSS Received is 7.5 ml of cloudy yellow fluid labeled with the patient's name and and designated per the requisition as urine. Submitted for cytology preparation. Mr 11/03/2023 TC:5 CPT: 72088
[2023-11-03 09:44] LABS: Cytology, Body Fluid / CSF SEE PATHOLOGY REPORT
[2023-11-03 12:14] LABS: Absolute Lymphocyte Count 1.01 X10^3/uL (0.83-4.51); Absolute Neutrophil Count 1.4 X10^3/uL (2.0-7.7); Basophil# 0.05 X10^3/uL; Basophil% 1.5 % (0-1); Eosinophil# 0.14 X10^3/uL; Eosinophils% 4.2 % (0-5); Hematocrit 47.1 % (37-47); Hemoglobin 14.8 g/dL (12.0-15.0); Lymphocyte # 1.01 X10^3/ul (0.83-4.51); Lymphocyte % 30.6 % (19-41); Mean Corp Hgb Conc 31.4 g/dL (32-36); Mean Corpuscular Hgb 28.6 pg (27.0-32.0); Mean Corpuscular Volume 90.9 fL (81-99); Mean Platelet Vol. 10.7 fl (6.2-12.0); Monocyte# 0.72 X10^3/uL; Monocyte% 21.8 % (0-10); NRBC Flagged by Analyzer 0 % (0-5); Neutrophil # 1.36 X10^3/uL (2.7-7.7); Neutrophil % 41.3 % (47-70); Platelet Count 145 K/mm3 (150-450); RBC Distribution Width CV 14.6 % (11.6-14.6); RBC Distribution Width SD 48.7 fl (35.1-43.9); Red Blood Count 5.18 M/mm3 (4.2-5.4); White Blood Count 3.3 K/mm3 (4.4-11.0)
[2023-11-03 12:35] LABS: ALB/GLOB Ratio 1.2 RATIO (0.9-2.4); AST(SGOT) 26 U/L (15-37); Alanine Aminotransfer ALT/SGPT 32 U/L (13-56); Albumin, Serum 3.6 g/dL (3.2-5.0); Alkaline Phosphatase 135 U/L (45-117); Anion Gap 4 (5-15); BUN 11 mg/dL (7-18); BUN/Creat Ratio 13.8 RATIO (10-20); Chloride 105 mmol/L (98-107); EST Glomerular Filtration Rate 75 mL/min (>60); Est Glom Filt Rate - Afr Amer 91 mL/min (>60); Globulin 2.9 g/dL (2.2-4.2); Glucose 131 mg/dL (74-106); Potassium 3.8 mmol/L (3.5-5.1); Protein, Total 6.5 g/dL (6.4-8.2); Sodium Level 139 mmol/L (136-145)
== END | disposition home or self-care (01) ==
LOC: MTLAB 09:37
PROVIDERS: PCP Family Medicine; Referring Provider Family Medicine; Visit Provider Family Medicine
DX: R31.9 Hematuria, unspecified (principal); R35.89 Other polyuria
CPT/HCPCS: 36415; 80053; 85025; 87086; 88108; 88313

== ENCOUNTER → 2023-11-08 | Outpatient (CLI) | payer MEDICARE, OTHER, SELFPAY ==
--- NOTE | 2023-11-08 | LES_PTH ---
PATIENT: CONCETTA DOOLEY LOC: [facility] U#:[id number] AGE/SX: 72/F ROOM: RE11/08/[address]: Dr. Morena Marion DO : 1950 BED: DIS: 11/08/2023 SPEC #: [id number] RECD: 11/09/23 08:10 STATUS: SHANE EFRAIN #: [id number] SHAKIR: 11/08/23 00:[address]: Morena Marion DEPT: SURGICAL PATHOLOGY RECD BY: Maru Reeves Tissues: Skin of forearm, NOS Procedures: Surgery Specimen Level IV HEADER OPERATION: 3mm punch biopsy PRE-OP DIAGNOSIS: Squamous cell carcinoma vs psoriasis TISSUE SUBMITTED: Left dorsal forearm MICROSCOPIC DIAGNOSIS Skin lesion of left dorsal forearm, biopsy: Acanthosis, parakeratosis and mild dermal chronic inflammation, non-specific. Solar elastosis. No evidence of malignancy. See comment. AMLilianmr 11/10/2023 COMMENT The lesion may represent verrucoid keratosis. Clinical correlation is suggested. Case has been reviewed in consultation with Dr. Sullivan who concurs with the above diagnosis. IDC:MIGDALIA MICROSCOPIC DESCRIPTION Slides are reviewed. GROSS DESCRIPTION Received is one container labeled with the patient's name and not further designated. The specimen consists of a punch biopsy of troy-white skin measuring 0.2cm in diameter and 0.2cm in length. The entire specimen is submitted in one cassette. 11/09/2023 TC:3 CPT:30245
== END | disposition home or self-care (01) ==
LOC: BFHLAB 15:46
PROVIDERS: PCP Family Medicine; Referring Provider Family Medicine; Visit Provider Family Medicine
DX: L83 Acanthosis nigricans (principal); R23.4 Changes in skin texture; L08.9 Local infection of the skin and subcutaneous tissue, unspecified; L57.8 Other skin changes due to chronic exposure to nonionizing radiation
CPT/HCPCS: 88305

== ENCOUNTER 2023-12-09 13:58 | Outpatient (CLI) | payer MEDICARE, OTHER, SELFPAY ==
[2023-12-17 14:14] LABS: HPV Reflexed? NOT INDICATED
== END 2023-12-09 23:59 | disposition home or self-care (01) ==
LOC: BFHLAB 14:00 → LABSPEC 14:00
PROVIDERS: PCP Family Medicine; Referring Provider Family Medicine; Visit Provider Family Medicine
DX: Z12.4 Encounter for screening for malignant neoplasm of cervix (principal)
CPT/HCPCS: 88175; G0145

== ENCOUNTER → 2023-12-28 | Outpatient (CLI) | payer MEDICARE, OTHER, SELFPAY | END | disposition home or self-care (01) | LOC: OPBI 12:50 | PROVIDERS: PCP Family Medicine; Referring Provider Family Medicine; Visit Provider Family Medicine | DX: Z12.31 Encounter for screening mammogram for malignant neoplasm of breast (principal) | CPT/HCPCS: 77063; 77067 ==

== ENCOUNTER → 2024-05-12 | Outpatient (CLI) | payer MEDICARE, OTHER, SELFPAY ==
--- NOTE | 2024-05-12 10:00 | FLU_PTH ---
PATIENT: CONCETTA DOOLEY LOC: [facility] U#:[id number] AGE/SX: 73/F ROOM: RE05/12/[address]: ALICIA Arellano : 1950 BED: DIS: 05/12/2024 SPEC #: [id number] RECD: 05/12/24 13:15 STATUS: SHANE REBrittni #: [id number] SHAKIR: 05/12/24 10:[address]: Eva Mcbride DEPT: CYTOLOGY RECD BY: Rey Burgos ENTERED: 05/12/24 13:16 SP TYPE: Fluid OTHR DR: Dr. Morena Marion, DO Tissues: A - Urine Procedures: Special Stain Group II Surgery Specimen Level IV Cytospin Fluid HEADER OPERATION: Not noted PRE-OP DIAGNOSIS: Hematuria TISSUE SUBMITTED: A- Urine for cytology DIAGNOSIS CYTOLOGY A. Urine: * No malignant cells identified. COMMENT The slides were reviewed in intradepartmental consultation by Dr Pola Lin ([facility]). CYTOLOGY STUDY Slides are reviewed. CYTOLOGY GROSS A. Received is 10 ml of brown-cloudy fluid labeled with the patient's name and and designated per the requisition as urine. Submitted for cytology preparation (cytospin x1). Mr 05/12/2024 CPT: 85512
[2024-05-12 10:09] LABS: Cytology, Body Fluid / CSF SEE PATHOLOGY REPORT
--- NOTE | 2024-05-12 10:20 | RAD_ITS ---
PROCEDURE: ABDOMEN SINGLE VIEW 05/12/2024 REASON FOR EXAM: KUB- KIDNEY STONES-HEMATURIA TECHNIQUE: Single view abdomen. COMPARISON: 10/11/2023 FINDINGS: No bowel distention.No free air or pneumatosis identified. No renal or ureteral calculi appreciated on the current exam. Fusion hardware and laminectomy changes are present in the lumbosacral spine. RAD/Abdomen Single View IMPRESSION: No acute findings. Reading Location: [facility]
== END | disposition home or self-care (01) ==
LOC: LABSPEC 10:07 → MTRAD 10:15
PROVIDERS: PCP Family Medicine; Referring Provider Nurse Practitioner Family; Visit Provider Nurse Practitioner Family
DX: N20.0 Calculus of kidney (principal); R31.9 Hematuria, unspecified
CPT/HCPCS: 74018; 87086; 87088; 88108; 88305; 88313

== ENCOUNTER → 2024-05-17 | Outpatient (CLI) | payer MEDICARE, OTHER, SELFPAY ==
[2024-05-17 17:55] LABS: Absolute Lymphocyte Count 1.77 X10^3/uL (0.83-4.51); Absolute Neutrophil Count 3.4 X10^3/uL (2.0-7.7); Basophil# 0.08 X10^3/uL; Basophil% 1.2 % (0-1); Eosinophil# 0.16 X10^3/uL; Eosinophils% 2.4 % (0-5); Hematocrit 47.5 % (37-47); Hemoglobin 15.3 g/dL (12.0-15.0); Lymphocyte # 1.77 X10^3/ul (0.83-4.51); Lymphocyte % 26.7 % (19-41); Mean Corp Hgb Conc 32.2 g/dL (32-36); Mean Corpuscular Hgb 28.7 pg (27.0-32.0); Mean Corpuscular Volume 89.1 fL (81-99); Mean Platelet Vol. 10.2 fl (6.2-12.0); Monocyte# 1.23 X10^3/uL; Monocyte% 18.6 % (0-10); NRBC Flagged by Analyzer 0 % (0-5); Neutrophil # 3.35 X10^3/uL (2.7-7.7); Neutrophil % 50.6 % (47-70); Platelet Count 185 K/mm3 (150-450); RBC Distribution Width CV 14.4 % (11.6-14.6); RBC Distribution Width SD 46.3 fl (35.1-43.9); Red Blood Count 5.33 M/mm3 (4.2-5.4); White Blood Count 6.6 K/mm3 (4.4-11.0)
== END | disposition home or self-care (01) ==
LOC: BFHLAB 14:58
PROVIDERS: PCP Family Medicine; Visit Provider Family Medicine
DX: Z20.2 Contact with and (suspected) exposure to infections with a predominantly sexual mode of transmission (principal); R31.9 Hematuria, unspecified
CPT/HCPCS: 36415; 85025; 87491; 87591

== ENCOUNTER → 2024-05-24 | Outpatient (CLI) | payer MEDICARE, OTHER, SELFPAY ==
--- NOTE | 2024-05-24 14:02 | US_ITS ---
PROCEDURE: PELVIC W/ TRANSVAGINAL (USPELTVAG), 05/24/2024 REASON FOR EXAM: PELVICD/PERINEAL PAIN/HEMATURIA TECHNIQUE: Grayscale and color doppler transabdominal and transvaginal pelvic ultrasound was performed. COMPARISON: 10/11/2023 FINDINGS: Uterus: 6.5 x 4.8 x 3.1 cm, Retroverted. Heterogeneous echotexture with scattered calcifications which could be vascular on correlation with recent CT. Questionable extremely ill-defined partially calcified presumed fibroid measuring 2.1 x 1.5 x 1.4 cm versus parenchymal heterogeneity. Endometrium: 3 mm, unremarkable. Cervix: Trace endocervical fluid reported by facility examiner on real-time scanning but not well depicted on images obtained.. Right ovary: Not identified probably due to postmenopausal volume loss and shadowing bowel gas. Left ovary: Not identified probably due to postmenopausal volume loss and shadowing bowel gas. Free fluid: Small volume free fluid reported by facility examiner on real-time scanning but not well depicted on images obtained.. Other: Estimated bladder volume 154 mL.. US/Pelvic w/ Transvaginal IMPRESSION: 1. No acute abnormality identified, noting that the bilateral ovaries are nonvi sualized. If unexplained symptoms persist, recommend CT. 2. Heterogeneous uterus with a questionable extremely ill-defined 2.1 cm partia lly calcified fibroid versus parenchymal heterogeneity. 3. Additional description as above. Reading Location: [facility]
== END | disposition home or self-care (01) ==
LOC: US 14:01
PROVIDERS: PCP Family Medicine; Referring Provider Family Medicine; Visit Provider Family Medicine
DX: R31.9 Hematuria, unspecified (principal); R10.2 Pelvic and perineal pain
CPT/HCPCS: 76830; 76856

== ENCOUNTER → 2024-06-05 | Outpatient (CLI) | payer MEDICARE, OTHER, SELFPAY ==
--- NOTE | 2024-06-05 16:50 | CT_ITS ---
PROCEDURE: ABDOMEN/PELVIS WITH CONTRAST 06/05/2024 REASON FOR EXAM: ABD PAIN/PELVIC PAIN TECHNIQUE: Abdomen and pelvis CT with intravenous contrast. Coronal and Sagittal reconstruction series were provided. PATIENT PREPARATION: Per protocol ORAL CONTRAST TYPE: None. CONTRAST: 98 cc Isovue-[id number] IV One or more dose reduction techniques were used (e.g., Automated exposure control, adjustment of the mA and/or kV according to patient size, use of iterative reconstruction technique. RADIATION DOSE SUMMARY: CTDlvol: 23.49 mGy DLP: 1237.95 mGycm COMPARISON: 10/11/2023 FINDINGS: Pomeroy artifact from lumbosacral hardware. Platelike bands at the bases again noted which may represent scar. Small nodular area on the right axial 8 not significantly changed. The liver, adrenal glands, pancreas and spleen appear within limits. The gallbladder is not identified. Bilateral small likely renal cysts. There is a 3-4 mm presenting axis left ureteral vesicle junction stone with mild left hydroureteronephrosis. The nephrograms appear symmetric. Perinephric stranding appears symmetric and not significantly changed from the prior. No perinephric fluid. Abdominal aorta appears within limits. No adenopathy identified. No bowel dilation or free air. The appendix is not identified, no secondary signs. The ovaries/adnexa and uterus appear within limits. The bladder is mostly collapsed. No free fluid. L1-2 spondylosis/discogenic change with severe disc space narrowing, vacuum effect and degenerative endplate changes, sclerosis. L3 through sacral bilateral posterior fusion hardware with L3 through L5 laminectomies and intervertebral disc spacers CT/Abdomen/Pelvis WITH Contrast IMPRESSION: 3-4 mm presenting axis distal left ureteral stone at the ureteral vesicle junct ion with mild left hydroureteronephrosis. The nephrograms appear symmetric. Reading Location: [id number]
[2024-06-05 17:08] LABS: CREATININE FINGERSTICK < 1.0 mg/dL (0.55-1.02); EGFR FINGERSTICK > 60.0000 mL/min (>60)
== END | disposition home or self-care (01) ==
LOC: CT 16:44
PROVIDERS: PCP Family Medicine; Referring Provider Family Medicine; Visit Provider Family Medicine
DX: R93.89 Abnormal findings on diagnostic imaging of other specified body structures (principal); R10.9 Unspecified abdominal pain; R10.2 Pelvic and perineal pain
CPT/HCPCS: 74177; Q9967

== ENCOUNTER → 2024-07-06 | Outpatient (CLI) | payer MEDICARE, OTHER, SELFPAY ==
[2024-07-06 10:46] LABS: Hematocrit 46.5 % (37-47); Mean Corp Hgb Conc 32.3 g/dL (32-36); Mean Corpuscular Hgb 29.1 pg (27.0-32.0); Mean Corpuscular Volume 90.3 fL (81-99); Platelet Count 168 K/mm3 (150-450); RBC Distribution Width CV 14.3 % (11.6-14.6); RBC Distribution Width SD 47.2 fl (35.1-43.9); Red Blood Count 5.15 M/mm3 (4.2-5.4); White Blood Count 4.5 K/mm3 (4.4-11.0)
[2024-07-06 11:28] LABS: Anion Gap 11 (5-15); BUN 19 mg/dL (4-19); BUN/Creat Ratio 21.3 RATIO (10-20); Calcium,Total 9.3 mg/dL (7.6-11.0); Carbon Dioxide 25.9 mmol/L (21.0-32.0); Chloride 102 mmol/L (98-108); Creatinine, Serum 0.88 mg/dL (0.70-1.20); EST Glomerular Filtration Rate 69 (>60); Glucose 113 mg/dL (70-99); Potassium 4.6 mmol/L (3.3-5.1); Sodium Level 139 mmol/L (133-145)
== END | disposition home or self-care (01) ==
LOC: MTLAB 08:44
PROVIDERS: PCP Family Medicine; Referring Provider Urology; Visit Provider Urology
DX: Z01.818 Encounter for other preprocedural examination (principal)
CPT/HCPCS: 36415; 80048; 85027

== ENCOUNTER → 2024-07-06 | Outpatient (CLI) | payer MEDICARE, OTHER, SELFPAY ==
--- NOTE | 2024-07-06 16:15 | CT_ITS ---
PROCEDURE: ABDOMEN/PELVIS WITHOUT CONT 07/06/2024 REASON FOR EXAM: FLANK PAIN TECHNIQUE: Abdomen and pelvis CT without intravenous contrast. Noncontrast technique limits evaluation of the abdominal and pelvic viscera. Coronal and Sagittal reconstruction series were provided. One or more dose reduction techniques were used (e.g., Automated exposure control, adjustment of the mA and/or kV according to patient size, use of iterative reconstruction technique). PATIENT PREPARATION: Per protocol CTDIvol: 21.0 mGy DLP: 1024 mGy-cm COMPARISON: CT abdomen and pelvis 06/06/2019 FINDINGS: Lung bases: Bibasilar linear atelectasis or scarring. Mitral annular calcification. Liver: Normal size. No obvious mass. Gallbladder: Surgically absent. Spleen: Normal size. Pancreas: Normal size. No surrounding inflammation. Adrenals: Unremarkable Kidneys: No hydronephrosis or stone. The 4 mm stone at the left ureterovesicular junction on CT dated 06/05/2024 is not identified on this exam. Bladder: Unremarkable Reproductive Organs: Unremarkable Bowel: Postoperative changes at the rectosigmoid junction. Duodenal diverticulum. No obstruction or inflammation. Appendix is surgically absent. Lymph nodes: Unremarkable. Vasculature: Mild diffuse atherosclerotic calcifications are noted. Bones: Postoperative changes of the lumbosacral spine from L3 through S2, without evidence of hardware complication. Advanced multilevel degenerative changes. Soft tissues: Gluteal calcifications are unchanged. CT/Abdomen/Pelvis without Cont IMPRESSION: No acute intra-abdominal abnormality. Stone at the left ureterovesicular junct ion on CT dated 06/05/2024 is no longer identified. Reading Location: [facility]
== END | disposition home or self-care (01) ==
LOC: CT 16:14
PROVIDERS: PCP Family Medicine; Referring Provider Urology; Visit Provider Urology
DX: R10.9 Unspecified abdominal pain (principal)
CPT/HCPCS: 74176

== ENCOUNTER → 2024-09-21 | Outpatient (CLI) | payer MEDICARE, OTHER, SELFPAY ==
--- NOTE | 2024-09-21 17:54 | US_ITS ---
PROCEDURE: KIDNEY AND BLADDER 09/21/2024 REASON FOR EXAM: HEMATURIA TECHNIQUE: KIDNEY AND BLADDER COMPARISON: CT 07/06/2024 FINDINGS: Right kidney measures 11 x 5 x 5 cm, normal echogenicity. No hydronephrosis, stone or mass. Left kidney measures 12 x 5 x 5 cm, normal echogenicity. No hydronephrosis stone or mass. Small simple cyst. Bladder is partially distended. Bilateral jets are present. No definite bladder pathology. US/Kidney and Bladder IMPRESSION: No acute or significant findings. Reading Location: [place] [id number]
== END | disposition home or self-care (01) ==
LOC: US 17:51
PROVIDERS: PCP Family Medicine; Referring Provider Urology; Visit Provider Urology
DX: R31.9 Hematuria, unspecified (principal)
CPT/HCPCS: 76770

== ENCOUNTER → 2024-11-27 | Outpatient (CLI) | payer MEDICARE, OTHER, SELFPAY ==
--- NOTE | 2024-11-27 12:58 | US_ITS ---
PROCEDURE: PELVIC W/ TRANSVAGINAL 11/27/2024 REASON FOR EXAM: PELVIC AND PERINEAL PAIN UNSPECIFIED SIDE TECHNIQUE: Procedure Code: [id number] Modality: US Procedure: PELVIC W/ TRANSVAGINAL COMPARISON: Pelvic ultrasound dated 05/24/2024 FINDINGS: Measurements: Uterus: 6.7 x 4.8 x 3.3 with a volume of 56 mL Endometrial Thickness: 2 mm Right Ovary: Not visualized on the transabdominal images due to poor bladder prep. Not visualized on the endovaginal pelvic images due to uterine position. Left Ovary: Not visualized on the transabdominal images due to poor bladder prep. Not visualized on the endovaginal pelvic images due to uterine position. Uterus: The uterus is retroverted. The myometrium of the uterus is heterogeneous. There are multiple calcifications seen. The largest measures 11 x 11 x 10 mm. This most likely represents a uterine fibroid. Endometrium: Endometrium measures 2 mm. The endometrium is hyperechoic. Cervix: Within normal limits Right ovary: Not visualized on the endovaginal or transabdominal pelvic images as described above. There are no abnormal adnexal masses seen. Left ovary: Not visualized on the endovaginal or transabdominal pelvic images as described above. There are no abnormal adnexal masses seen. Other: There is no fluid in the cul-de-sac. Bladder: The bladder measures 5.9 x 3.3 x 2.5 cm. Bladder volume is 25 mL. There is no filling defect within the urinary bladder. The bladder wall is not thickened. US/Pelvic w/ Transvaginal IMPRESSION: The calcifications within the uterus most likely represent uterine fibroids. T he largest calcification measures 11 x 11 x 10 mm. Reading Location: [id number]
== END | disposition home or self-care (01) ==
LOC: US 12:55
PROVIDERS: PCP Family Medicine; Referring Provider Family Medicine; Visit Provider Family Medicine
DX: R10.20 Pelvic and perineal pain unspecified side (principal)
CPT/HCPCS: 76830; 76856

== ENCOUNTER → 2024-12-25 | Outpatient (CLI) | payer MEDICARE, OTHER, SELFPAY ==
[2024-12-25 15:52] LABS: FOLATES,SERUM (FOLIC ACID) 8.41 ng/mL (4.60-34.80)
[2024-12-25 15:53] LABS: Vitamin B12 1284 pg/mL (180-914)
== END | disposition home or self-care (01) ==
LOC: BFHLAB 11:51
PROVIDERS: PCP Family Medicine; Visit Provider Family Medicine
DX: G62.9 Polyneuropathy, unspecified (principal); E53.8 Deficiency of other specified B group vitamins
CPT/HCPCS: 36415; 81291; 82607; 82746

== ENCOUNTER → 2024-12-28 | Outpatient (CLI) | payer MEDICARE, OTHER, SELFPAY ==
--- NOTE | 2024-12-28 08:32 | BI_ITS ---
EXAM: SCRN MAMM (CAD)W/ROCIO BILAT DATE: 12/28/2024 CLINICAL HISTORY: F, Age 74 y/o , SCREENING Mother with breast cancer. Bilateral stereotactic biopsies. TECHNIQUE: Procedure Code: [id number] Modality: MG Procedure: SCRN MAMM (CAD)W/ROCIO BILAT COMPARISON: Prior exam(s) dated December 28, 2023.. FINDINGS: TISSUE DENSITY: There are scattered areas of fibroglandular density. Bilateral Breast Mammographic Findings: No significant masses, calcifications or other abnormalities are identified. Stable bilateral secretory calcification. There are 2 tissue clip markers in the right breast. No suspicious masses, areas of developing architectural distortion, or suspicious calcifications. There has been no significant interval change. BI/SCRN MAMM (CAD)W/ROCIO BILAT IMPRESSION: Stable bilateral screening mammogram. OVERALL FINAL ASSESSMENT BI-RADS 2: BENIGN RECOMMENDATION: Routine annual follow-up in 1 Year Additional Recommendation none A letter with findings and recommendations will be mailed to the patient. Reading Location: [place] [id number]
== END | disposition home or self-care (01) ==
LOC: OPBI 08:31
PROVIDERS: PCP Family Medicine; Referring Provider Family Medicine; Visit Provider Family Medicine
DX: Z12.31 Encounter for screening mammogram for malignant neoplasm of breast (principal)
CPT/HCPCS: 77063; 77067